=== PATIENT | female | born 1935 | race Caucasian/White ===

== ENCOUNTER 2019-11-22 12:15 | Outpatient (CLI) | payer MEDICARE, SELFPAY ==
[2019-11-22 12:37] LABS: Basophils Absolute Auto 0.04 K/mm3 (0.00-0.10); Basophils Percent Auto 0.6 % (0.0-1.0); Eosinophils Absolute Auto 0.13 K/mm3 (0.02-0.50); Eosinophils Percent Auto 1.9 % (1.0-6.0); Hematocrit 42.4 % (35.0-42.0); Immature Granulocyte Absolute 0.02 K/mm3 (0.00-0.00); Immature Granulocyte Percent A 0.3 % (0.0-0.0); Lymphocytes Absolute Auto 2.42 K/mm3 (1.10-4.50); Mean Corpuscular Hemoglobin 28.7 pg (27.0-31.0); Mean Corpuscular Volume 87.1 fL (78.0-102.0); Mean Platelet Volume 8.6 fl (9.2-11.8); Monocytes Absolute Auto 0.68 K/mm3 (0.10-0.90); Monocytes Percent Auto 9.8 % (2.0-11.0); Neutrophils Absolute Auto 3.6 K/mm3 (1.7-7.2); Neutrophils Percent Auto 52.4 % (50.0-70.0); Platelet Count Result 343 K/mm3 (150-420); Red Blood Count 4.87 M/mm3 (4.20-5.40); Red Cell Distribution Width 13.4 % (11.6-14.4); White Blood Count 6.9 K/mm3 (4.8-10.8)
[2019-11-22 12:38] LABS: Add Urine Microscopic? YES; Appearance Urine Clear (Clear); Bilirubin Urine Negative (Negative); Blood Urine 1+ (Negative); Color Urine Yellow (Yellow); Glucose Urine UA Negative (Negative); Ketones Urine Negative (Negative); Leukocyte Esterase Ur 2+ (Negative); Nitrate Urine Negative (Negative); Protein Urine Negative (Negative); Urobilinogen Urine 0.2 mg/dL (0.2-1.0); pH Urine 6.5 (5.0-8.0)
[2019-11-22 12:56] LABS: Bacteria Urine 1+ /hpf; Renal Epithelial Cells Urine Few /hpf; Squamous Epithelial Cell Urine Few /hpf (Few)
[2019-11-22 14:06] LABS: Erythrocyte Sedimentation Rate 22 mm/hr (0-20)
[2019-11-22 14:08] LABS: Alanine Aminotransferase 12 U/L (14-59); Albumin Level 3.7 g/dL (3.4-5.0); Alkaline Phosphatase 104 U/L (46-116); Anion Gap 15.6 mmol/L (7-16); Aspartate Amino Transferase 15 U/L (15-37); Bilirubin,Total 0.5 mg/dL (0.00-1.00); Blood Urea Nitrogen 11 mg/dL (7-18); Calcium 9.1 mg/dL (8.5-10.1); Carbon Dioxide 25 mmol/L (21-32); Chloride 100 mmol/L (98-108); Cholesterol 198 mg/dL (0-200); Estimated Glomerular Filt Rate > 60; Free T3 3.13 pg/mL (2.18-3.98); Free T4 Free Thyroxine 1.04 ng/dL (0.76-1.46); Glucose 89 mg/dL (70-99); HDL Direct 46 mg/dL (40-60); LDL Cholesterol Calculated 127 mg/dL (<130); Osmolality Calculated 280 mOsm/kg (285-295); Potassium 4.6 mmol/L (3.5-5.1); Sodium 136 mmol/L (136-145); Thyroid Stimulating Hormone 2.14 uIU/mL (0.36-3.74); Total Protein 7.3 g/dL (6.4-8.2); Triglycerides 127 mg/dL (0-150); Vitamin B12 250 pg/mL (193-986)
[2019-11-22 14:09] LABS: CRP < 0.2 mg/dL (0.0-0.9)
[2019-11-25 21:30] LABS: Vitamin D 25 Hydroxy 9 ng/mL (30-100)
== END 2019-11-22 12:16 | disposition home or self-care (01) ==
LOC: CHSLAB 12:22
PROVIDERS: PCP Internal Medicine; Visit Provider Internal Medicine
DX: I48.91 Unspecified atrial fibrillation (principal); M81.0 Age-related osteoporosis without current pathological fracture; E78.2 Mixed hyperlipidemia; M54.5 Low back pain; E53.8 Deficiency of other specified B group vitamins
CPT/HCPCS: 36415; 80053; 80061; 81001; 82306; 82607; 84439; 84443; 84481; 85025; 85652; 86140

== ENCOUNTER 2020-03-24 14:21 | Outpatient (CLI) | payer MEDICARE, OTHER, SELFPAY ==
--- NOTE | ~2020-03-24 | XR_ITS ---
EXAMINATION: XR chest 2V DATE: 03/24/2020 14:58 INDICATION: Cough. TECHNIQUE: Frontal and lateral views of the chest were obtained. COMPARISON: Chest 2 views 12/29/2014, lumbar spine CT 06/20/2019 FINDINGS: There is mild atelectasis at left lung base. No pleural effusion or pneumothorax. Cardiomeg ana is noted. There are epidural electrodes in thoracic spine. There is a chronic compression fractur e of L1. IMPRESSION: 1. Mild atelectasis at left lung base. 2. Cardiomegaly. Reviewed, dictated and finalized at location A.
[2020-03-24 14:38] LABS: Basophils Absolute Auto 0.06 K/mm3 (0.00-0.10); Basophils Percent Auto 0.8 % (0.0-1.0); Eosinophils Absolute Auto 0.67 K/mm3 (0.02-0.50); Eosinophils Percent Auto 9.1 % (1.0-6.0); Hematocrit 41.9 % (35.0-42.0); Hemoglobin 13.9 g/dL (11.7-13.8); Immature Granulocyte Absolute 0.02 K/mm3 (0.00-0.00); Immature Granulocyte Percent A 0.3 % (0.0-0.0); Lymphocytes Absolute Auto 2.64 K/mm3 (1.10-4.50); Mean Corpuscular HGB Conc 33.2 g/dL (32.0-36.0); Mean Corpuscular Hemoglobin 29.3 pg (27.0-31.0); Mean Corpuscular Volume 88.2 fL (78.0-102.0); Mean Platelet Volume 8.6 fl (9.2-11.8); Monocytes Percent Auto 9.5 % (2.0-11.0); Neutrophils Absolute Auto 3.2 K/mm3 (1.7-7.2); Neutrophils Percent Auto 44.3 % (50.0-70.0); Platelet Count Result 331 K/mm3 (150-420); Red Blood Count 4.75 M/mm3 (4.20-5.40); Red Cell Distribution Width 13.7 % (11.6-14.4); White Blood Count 7.3 K/mm3 (4.8-10.8)
[2020-03-24 14:52] LABS: Alanine Aminotransferase 14 U/L (14-59); Albumin Level 3.6 g/dL (3.4-5.0); Alkaline Phosphatase 100 U/L (46-116); Anion Gap 5.7 mmol/L (7-16); Aspartate Amino Transferase 14 U/L (15-37); Bilirubin,Total 0.4 mg/dL (0.00-1.00); Blood Urea Nitrogen 15 mg/dL (7-18); Calcium 9.2 mg/dL (8.5-10.1); Carbon Dioxide 32 mmol/L (21-32); Chloride 95 mmol/L (98-108); Estimated Glomerular Filt Rate > 60; Glucose 94 mg/dL (70-99); Osmolality Calculated 268 mOsm/kg (285-295); Potassium 3.7 mmol/L (3.5-5.1); Sodium 129 mmol/L (136-145); Total Protein 7.6 g/dL (6.4-8.2)
[2020-03-24 14:57] LABS: BNP 266 pg/mL (0-100)
== END 2020-03-24 14:22 | disposition home or self-care (01) ==
LOC: CHSLAB 14:26
PROVIDERS: PCP Internal Medicine; Visit Provider Internal Medicine
DX: I48.91 Unspecified atrial fibrillation (principal); R05 Cough; R06.02 Shortness of breath
CPT/HCPCS: 36415; 71046; 80053; 83880; 85025

== ENCOUNTER 2020-03-26 10:35 | Outpatient (CLI) | payer MEDICARE, OTHER, SELFPAY ==
--- NOTE | 2020-03-26 10:44 | ECHO_ITS ---
Patient Info Name: Jenn Tirado Age: 84 years : 1935 Gender: Female Ht: 65 in Wt: 145 lbs BSA: 1.75 m2 HR: 56 bpm BP: 141 / 66 mmHg Technical Quality: Good Exam Date: 03/26/2020 10:46 AM Exam Location: [facility] Patient Status: Outpatient Admit Date: 03/26/2020 Staff Ordering Physician: Bravo Bowen MD Planisher: Suzy Banks RDCS Attending Provider: Bravo Bowen MD Referring Physician: Andrés ZHU; Exam Type: CA echo doppler color flow Study Info Indications I50.9 - Heart failure, unspecified Complete two-dimensional, color flow and Doppler transthoracic echocardiogram is performed. Strain analysis performed. History/Risk Factors Hypertension: Yes Dyslipidemia: No Congenital Heart Disease (CHD): No Peripheral Arterial Disease (PAD): No Myocardial Infarction (PA): No Chronic Lung Disease: No Obesity: No Renal Disease: No Congestive Heart Failure (CHF): Hx CHF Cardiomyopathy/LV Systolic Dysfunction: No Diabetes Mellitus: No COPD: On Meds Tobacco Use: Never Cerebrovascular Disease: No DVT Treatment: Apixaban Deep Vein Thrombosis (DVT): None Dialysis: None Frailty Scale (CSHA): 3: Managing Well Cardiac Arrest: No Summary 1. Left ventricular chamber dimension is mildly enlarged. 2. Ventricular septum is sigmoid shaped. 3. Left ventricular systolic function is normal, estimated at 55-60%. 4. The left ventricular diastolic function is normal. 5. E/e' 7 is not elevated. 6. Left atrial chamber dimension is moderately enlarged. 7. Right atrial chamber dimension is severely enlarged. 8. There is mild aortic valve sclerosis. 9. There is trace aortic valve regurgitation. 10. The mitral valve has moderately calcified annulus. 11. There is mild mitral valve regurgitation. 12. There is severe tricuspid valve regurgitation. 13. Mild pulmonary hypertension, estimated pulmonary arterial systolic pressure is 40 mmHg. 14. There is 2 jet mild to moderate pulmonic regurgitation. 15. Dilated inferior vena cava with >50% collapse upon inspiration consistent with elevated right atrial pressure, 10 mmHg. Left Ventricle E/e' 7 is not elevated. Ventricular septum is sigmoid shaped. Left ventricular chamber dimension is mildly enlarged. Left ventricular systolic function is normal, estimated at 55-60%. The left ventricular diastolic function is normal. Right Ventricle Right ventricular chamber dimension is normal. Right ventricular systolic function is normal. Left Atria Left atrial chamber dimension is moderately enlarged. Right Atria Right atrial chamber dimension is severely enlarged. Aortic Valve The aortic valve is trileaflet. There is mild aortic valve sclerosis. There is no aortic valve stenosis. There is trace aortic valve regurgitation. Pulmonic Valve There is 2 jet mild to moderate pulmonic regurgitation. Mitral Valve The mitral valve has moderately calcified annulus. There is no mitral valve stenosis. There is mild mitral valve regurgitation. Tricuspid Valve There is severe tricuspid valve regurgitation. Mild pulmonary hypertension, estimated pulmonary arterial systolic pressure is 40 mmHg. Pericardium/Pleural The pericardium appears normal. Inferior Vena Cava Dilated inferior vena cava with >50% collapse upon inspiration consistent with elevated right atrial pressure, 10 mmHg. Aorta The aortic ro
== END 2020-03-26 10:36 | disposition home or self-care (01) ==
PROVIDERS: PCP Internal Medicine; Visit Provider Internal Medicine
DX: I50.9 Heart failure, unspecified (principal)
CPT/HCPCS: 93306

== ENCOUNTER 2020-04-13 11:00 | Outpatient (CLI) | payer MEDICARE, OTHER, SELFPAY | END 2020-04-13 11:01 | disposition home or self-care (01) | LOC: CHSCARD 11:02 | PROVIDERS: PCP Internal Medicine; Visit Provider Internal Medicine Cardiovascular Disease | DX: Z01.810 Encounter for preprocedural cardiovascular examination (principal) | CPT/HCPCS: 78452; 93017; A9502; J2785 ==

== ENCOUNTER 2020-04-30 09:26 | Outpatient (CLI) | payer MEDICARE, SELFPAY ==
[2020-04-30 09:47] LABS: Basophils Absolute Auto 0.02 K/mm3 (0.00-0.10); Basophils Percent Auto 0.4 % (0.0-1.0); Eosinophils Absolute Auto 0.13 K/mm3 (0.02-0.50); Eosinophils Percent Auto 2.3 % (1.0-6.0); Hematocrit 42.7 % (35.0-42.0); Hemoglobin 13.5 g/dL (11.7-13.8); Immature Granulocyte Absolute 0.01 K/mm3 (0.00-0.00); Immature Granulocyte Percent A 0.2 % (0.0-0.0); Lymphocytes Absolute Auto 1.89 K/mm3 (1.10-4.50); Lymphocytes Percent Auto 33.1 % (18.0-42.0); Mean Corpuscular HGB Conc 31.6 g/dL (32.0-36.0); Mean Corpuscular Hemoglobin 28.8 pg (27.0-31.0); Mean Platelet Volume 8.7 fl (9.2-11.8); Monocytes Percent Auto 12.3 % (2.0-11.0); Neutrophils Percent Auto 51.7 % (50.0-70.0); Platelet Count Result 370 K/mm3 (150-420); Red Blood Count 4.69 M/mm3 (4.20-5.40); Red Cell Distribution Width 13.3 % (11.6-14.4); White Blood Count 5.7 K/mm3 (4.8-10.8)
[2020-04-30 11:27] LABS: Vitamin B12 285 pg/mL (193-986)
[2020-05-05 19:25] LABS: Vitamin D 25 Hydroxy 26 ng/mL (30-100)
== END 2020-04-30 09:27 | disposition home or self-care (01) ==
PROVIDERS: PCP Internal Medicine; Visit Provider Internal Medicine
DX: E55.9 Vitamin D deficiency, unspecified (principal); D51.9 Vitamin B12 deficiency anemia, unspecified
CPT/HCPCS: 36415; 82306; 82607; 85025

== ENCOUNTER 2020-06-02 11:15 | Outpatient (CLI) | payer MEDICARE, SELFPAY ==
[2020-06-02 13:07] LABS: Vitamin B12 > 2000 pg/mL (193-986)
[2020-06-06 12:11] LABS: Vitamin D 25 Hydroxy 25 ng/mL (30-100)
== END 2020-06-02 11:16 | disposition home or self-care (01) ==
LOC: CHSLAB 11:17
PROVIDERS: PCP Internal Medicine; Visit Provider Internal Medicine
DX: E55.9 Vitamin D deficiency, unspecified (principal); D51.9 Vitamin B12 deficiency anemia, unspecified
CPT/HCPCS: 36415; 82306; 82607

== ENCOUNTER 2020-06-09 11:36 | Outpatient (CLI) | payer MEDICARE, SELFPAY ==
[2020-06-09 12:56] LABS: Vitamin B12 > 2000 pg/mL (193-986)
== END 2020-06-09 11:37 | disposition home or self-care (01) ==
LOC: CHSLAB 11:38
PROVIDERS: PCP Internal Medicine; Visit Provider Internal Medicine
DX: D51.9 Vitamin B12 deficiency anemia, unspecified (principal)
CPT/HCPCS: 36415; 82607

== ENCOUNTER 2020-07-21 14:02 | Outpatient (RCR) | payer MEDICARE, OTHER, SELFPAY ==
--- NOTE | 2020-07-21 11:56 | PTOPEVAL ---
Thank you for referring Jenn Tirado to [facility].? The patient is scheduled to be seen for therapy? ____x/week for ___ weeks. Please review, sign, date and return this plan of care DANITA. I agree with and certify that the following plan of care is medically necessary. Referring Physician Date Admitting Provider: Attending Provider: PHYSICIAN NOT ON STAFF Referring Provider: *PT Outpatient Evaluation Start: 07/21/20 11:04 Freq: Status: Active Protocol: Document 07/21/20 11:05 GENOVEVA (Rec: 07/21/20 11:55 [facility] [id number]) Therapy Assessment Status Assessment Status Assessment Status Evaluation Evaluation Information Problem Diagnosis lumbar radiculopathy Onset 07/20/20 Additional Evaluation Detail oswestry = 44% functionally declined Subjective Information patient reports she has a Query Text:As Reported By Patient/ spinal cord stimulator in the Family back. she reports she is unable to have an MRI. she reports she has had and tried injections for a long time. she reports she has had an EMG recently. she reports results show an old injury causing the pain down the leg. she reports she has pain in the butt and to the knee of the L side. she reports she has had pain in the back for years. she reports it has been flared up for a year. she reports she has shrap zingers of pain from the buttock to the L knee. she reports increased pain with standing and walking . she uses a cane regularly, but will use a walker for long distance walks. Pain Assessment Timing of Pain Assessment Timing of Pain Assessment Assessment Pain Scale Pain Scale Used Numeric (1 - 10) Self Report Pain Assessment Lower Back Reported Pain Level 0 Pain Radiation Left Leg Pain Frequency Acute,Chronic,Continuous Lowest Pain Intensity 0 Greatest Pain Intensity 8 Pain Score Pain Score 0: Self Report Additional Pain Score Comments patient reports no pain with sitting or sleeping. Interventions Used Interventions Used By Clinicians Activity or ADL's,Education,
== END 2020-08-26 14:06 | disposition home or self-care (01) ==
LOC: CHSPT 14:02
PROVIDERS: PCP Internal Medicine
DX: M54.17 Radiculopathy, lumbosacral region (principal)
CPT/HCPCS: 97110; 97161

== ENCOUNTER 2020-08-07 11:12 | Outpatient (CLI) | payer MEDICARE, SELFPAY ==
[2020-08-11 12:25] LABS: Vitamin D 25 Hydroxy 21 ng/mL (30-100)
== END 2020-08-07 11:13 | disposition home or self-care (01) ==
LOC: CHSLAB 11:13
PROVIDERS: PCP Internal Medicine; Visit Provider Internal Medicine
DX: E55.9 Vitamin D deficiency, unspecified (principal)
CPT/HCPCS: 36415; 82306

== ENCOUNTER 2020-08-31 14:48 | Outpatient (CLI) | payer MEDICARE, SELFPAY ==
[2020-08-31 15:38] LABS: SARS-CoV-2 Ag Negative (Negative)
== END 2020-08-31 14:49 | disposition home or self-care (01) ==
LOC: CHSLAB 14:52
PROVIDERS: PCP Internal Medicine; Visit Provider Internal Medicine
DX: Z20.828 Contact with and (suspected) exposure to other viral communicable diseases (principal)
CPT/HCPCS: 87426

== ENCOUNTER 2020-10-13 10:23 | Outpatient (CLI) | payer MEDICARE, SELFPAY ==
[2020-10-15 12:43] LABS: Vitamin D 25 Hydroxy 37 ng/mL (30-100)
== END 2020-10-13 10:24 | disposition home or self-care (01) ==
LOC: CHSLAB 10:25
PROVIDERS: PCP Internal Medicine; Visit Provider Internal Medicine
DX: E55.9 Vitamin D deficiency, unspecified (principal)
CPT/HCPCS: 36415; 82306

== ENCOUNTER 2020-10-19 12:59 | Outpatient (RCR) | payer MEDICARE, OTHER, SELFPAY ==
--- NOTE | 2020-10-19 14:14 | PTOPEVAL ---
Thank you for referring Jenn Tirado to [facility].? The patient is scheduled to be seen for therapy? __2__x/week for 12 visits. Please review, sign, date and return this plan of care DANITA. I agree with and certify that the following plan of care is medically necessary. Referring Physician Date Admitting Provider: Attending Provider: Loraine Schmitt, P[employer]ER [employer]-BC Referring Provider: *PT Outpatient Evaluation Start: 10/19/20 13:03 Freq: Status: Active Protocol: Document 10/19/20 13:04 ACR (Rec: 10/19/20 14:14 ACR [id number]) Therapy Assessment Status Assessment Status Assessment Status Evaluation Evaluation Information Problem Diagnosis L hip pain Onset 10/15/20 Subjective Information Patient states she has been to Query Text:As Reported By Patient/ therapy for her L hip before. Family Patient states her hip pain has been chronic and was at the MD for a check up and got an injection on 10/15/20. She has been getting the injections every three months. She states the pain does not wake her up, but it is constantly aching throughout the day. Prior Level of Function Activity Level (Last 3 Months) Occupation retired Hand Dominance Right Activity of Daily Living Ability Independent Indoor/Home Mobility Independent Community Mobility Independent Stairs Ability Independent Functional Cognition (Planning, Shopping Independent , Taking Medications) Cooking Yes Cleaning Yes Laundry Yes Shopping Yes Driving Yes Pain Assessment Timing of Pain Assessment Timing of Pain Assessment Assessment Pain Scale Pain Scale Used Numeric (1 - 10) Self Report Pain Assessment Left Hip(s) Reported Pain Level 3 Pain Description Aching Greatest Pain Intensity 6 Pain Aggravating Factors Walking,Weight Bearing/ Standing Pain Score Pain Score 3: Self Report Interventions Used Interventions Used By Clinicians Activity or ADL's,Exercise Lower Extremity Range of Motion Hip Range of Motion Bilateral Hip Flexion Range of Motion - Active 125 Hip Abduction Range of Motion - Active 40 Lower Extremity Muscle Strength Testing Hip Strength Bilateral Hip Flexion Strength 3 Fair Hip Abduction Strength 3 Fair Knee S
--- NOTE | 2020-11-30 12:01 | PTOPEVAL ---
Thank you for referring Jenn Tirado to [facility].? The patient is scheduled to be seen for therapy? ____x/week for ___ weeks. Please review, sign, date and return this plan of care DANITA. I agree with and certify that the following plan of care is medically necessary. Referring Physician Date Admitting Provider: Attending Provider: Loraine Schmitt, MARISSA Referring Provider: *PT Outpatient Evaluation Start: 10/19/20 13:03 Freq: Status: Active Protocol: Document 11/30/20 11:06 ACR (Rec: 11/30/20 12:01 ACR [id number]) Therapy Assessment Status Assessment Status Assessment Status Re-evaluation Outpatient Past Medical History Cardiovascular History Hx Atrial Fibrillation Yes Hx Hypertension Yes HEENT History Hx Cataracts Yes: r Hx Eye Surgery Yes: r eye retinal and lens transfer Reproductive History Hx Post Menopausal Yes Evaluation Information Problem Diagnosis generalized weakness Subjective Information Patient states since her Query Text:As Reported By Patient/ hospital stay a week ago, she Family has been doing better, but feels very weak. She states she is getting her appetite back. She states she is getting stronger day by day, but still has difficulty with walking long distances and her balance. Her goal is to be able to perform a sit to stand with no difficulty. Pain Assessment Timing of Pain Assessment Timing of Pain Assessment Pre-Treatment Pain Scale Pain Scale Used Numeric (1 - 10) Self Report Pain Assessment Left Hip(s) Reported Pain Level 5 Pain Score Pain Score 5: Self Report Interventions Used Interventions Used By Clinicians Activity or ADL's,Education, Electrical Stimulation, Exercise,Heat Lower Extremity Muscle Strength Testing Hip Strength Bilateral Hip Flexion Strength 3+ Fair + Hip Abduction Strength 4+ Good + Hip Adduction Strength 4+ Good + Knee Strength Bilateral Knee Flexion Strength 4 Good Knee Extension Strength 4 Good Balance Assessment Tinetti Balance Assessment Sitting Balance Steady, safe Ability to Arise Able, uses arms to help Attempts to Arise Arises on 1st attempt Immediate Standing Balance Steady with support Standing Balance Steady, wide stance Nudged Response
== END 2021-01-01 13:51 | disposition home or self-care (01) ==
LOC: CHSPT 12:59
PROVIDERS: Visit Provider Nurse Practitioner Family
DX: M25.552 Pain in left hip (principal); M54.5 Low back pain; M54.16 Radiculopathy, lumbar region
CPT/HCPCS: 97014; 97110; 97112; 97116; 97161; 97530; G0283

== ENCOUNTER 2020-11-18 10:09 | Observation (INO) | payer MEDICARE, OTHER, SELFPAY ==
[2020-11-18] VITALS (11 sets, daily range): BP systolic 76–111; BP diastolic 58–74; PULSE 54–77; RESP 16–18; TEMP 36.8–37.3; O2SAT 94–99; BMI 23.1
--- NOTE | ~2020-11-18 | CT_ITS ---
EXAMINATION: CT abdomen pelvis w con EXAM DATE: 11/19/2020 12:54 INDICATION: Acute n/v/d and incontinence diarrhea and incontinence x2wks, recent weakness,syncope,radha sea. TECHNIQUE: Spiral CT of the abdomen and pelvis was performed following intravenous injection of 100 m L Omnipaque 350. Axial, coronal and sagittal images were reviewed. The dose-length product (DLP) fo r this examination was 396.22 mGy-cm. The exposure was tailored according to patient size (auto mA e xposure control), and iterative reconstruction (ASIR) was used as additional dose reduction technique . There is no prior study for comparison. FINDINGS: The liver, spleen, adrenal glands and pancreas are unremarkable. Gallbladder is unremarkab le. No biliary obstruction. Portal and splenic veins are patent. Kidneys enhance symmetrically. T here is no hydronephrosis. The uterus is not identified and has likely been surgically resected. T here is enhancing bladder mucosa, possible acute cystitis. Please correlate with urinalysis. There i s no retroperitoneal or pelvic lymphadenopathy. There is moderate scattered arteriosclerotic diseas e. 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 The appendix is not positively visualized. There is no pericecal inflammatory change to suggest appe ndicitis. There is moderate sigmoid colonic diverticulosis. There is no adjacent inflammatory change to suggest diverticulitis. The stomach and small bowel are unremarkable. There is expected amount o f colonic stool. No free intraperitoneal gas. There is moderate cardiomegaly, with significant di lation of the atria bilaterally. Left basilar subsegmental atelectasis. Moderate lumbar levoscolios is. Advanced lumbar spondylosis. Chronic mild to moderate compression fracture of L1. IMPRESSION: 1. Enhancing bladder mucosa suspicious for cystitis, correlate with urinalysis. 2. Moderate sigmoid diverticulosis. 3. Cardiomegaly. Reviewed, dictated and finalized at location B. [employer] IMPRESSION: 1. Enhancing bladder mucosa suspicious for cystitis, correlate with urinalysis . 2. Moderate sigmoid diverticulosis. 3. Cardiomegaly.
--- NOTE | 2020-11-18 10:50 | ECG_ITS ---
Measurements Intervals [place] Rate: 63 P: NC: 0 QRS: 0 QRSD: 84 T: -6 QT: 413 QTc: 424 Interpretive Statements ATRIAL FIBRILLATION CANNOT RULE OUT SEPTAL INFARCT, AGE INDETERMINATE BORDERLINE ST-T WAVE ABNORMALITY- DIFFUSE LEADS ABNORMAL ECG Electronically Signed On 11-18-2020 11:38:56 CAN CRIMPER by Prem Garcia D.O.
--- NOTE | 2020-11-18 10:56 | ED.GENADULT ---
HPI - General Adult General Chief complaint: Weakness Stated complaint: passed out/Weak Source: patient Mode of arrival: ambulatory Limitations: no limitations History of Present Illness HPI narrative: Jenn is a 85F with a PMH of Afib, HTN, and glaucoma that was brought to the emergency department by her daughter with weakness. She has been weak for some time (may have started after starting acetazolamide for glaucoma), but is was especially worse. She has had 5-6 episodes of watery diarrhea daily for a few weeks. This morning she was walking to the bathroom and became lightheaded. She had to sit down but did not fall or lose consciousness. Her daughter then brought her to the ED. No melena, hematochezia, N/V, abdominal pain, CP, SOB or syncope. Related Data Home Medications Medication Instructions Recorded Confirmed apixaban 5 mg tablet 5 mg PO BID 01/22/20 11/18/20 potassium chloride 10 mEq 10 meq PO DAILY 04/06/20 11/18/20 capsule,extended release acetazolamide 500 mg PO DAILY 11/18/20 11/18/20 brimonidine-timolol [Combigan] 1 drp RIGHT EYE DAILY 11/18/20 11/18/20 fluorometholone 1 drp RIGHT EYE DAILY 11/18/20 11/18/20 latanoprost 1 drp RIGHT EYE DAILY 11/18/20 11/18/20 Allergies Allergy/AdvReac Type Severity Reaction Status Date / Time nickel Allergy Unknown Verified 11/18/20 10:44 tape Allergy Intermediate Unknown Uncoded 10/05/20 14:31 Review of Systems Constitutional: Constitutional: Reports no additional constitutional complaints, Denies chills and Denies fever(s) Eyes: Eyes: Reports no additional eye complaints ENT: Reports system reviewed and no additional complaints, except as documented Cardiovascular: Cardiovascular: Reports no additional cardiovascular complaints Respiratory: Respiratory: Reports no additional respiratory complaints Gastrointestinal: Gastrointestinal: Reports as per HPI Genitourinary: Genitourinary: Reports no additional female genitourinary complaints Musculoskeletal: Musculoskeletal: Reports no additional musculoskeletal complaints Integumentary/Breasts: Skin/Breast: Reports system reviewed and no additional complaints, except as docu Neurologic: Reports system reviewed and no additional complaints, except as documented Psychiatric: Psychiatric: Reports no additional psychiatric complaints Endocrine: Endocrine: Reports no additional endocrine complaints Hematologic/Lymphatic: Hematologic/Lymphatic: Reports no additional hematologic/lymphatic complaints Allergic/Immunologic: Allergic/Immunologic: Reports no additional allergic/immunologic complaints [facility] Past Medical History Medical History (Updated 11/18/20 @ 14:40 by Artis Harrison DO) Arthritis Atrial fibrillation Surgical History Surgical History H/O: hysterectomy Transplanted cornea Social History Social History Smoking status: Never smoker Exam Const: General: no acute distress and alert; No confusion Orientation/consciousness: patient oriented x3 Limitations: No altered mental status Other: looks fatigued. HENMT: Other: normocephalic, atraumatic, EOMI, Dry mucous membranes Eyes: Conjunctivae: conjunctivae normal Pupils: Equal, round and reactive pupils present EOM: EOMs intact bilaterally Neck: Neck: normal visual inspection Chest: Chest palpation & inspection: normal inspection of the chest Resp: Effort & Inspection: normal respiratory effort Auscultation: clear to auscultation bilaterally Cardio: Rate: regular rate Other: irregularly irregular rhythm GI: Inspection: non-distended GI Palp: Yes Soft to palpation, No Tenderness to palpation present (GI), No Guarding due to palpation present (GI), No Rigid due to palpation and No Palpable mass present Back/Spine/Pelvis: Back: no CVA tenderness Skin: General skin exam: normal color Rashes: no rashes Neuro: General
[2020-11-18] MEDS: LACTATED RINGERS 1,000 ML 999 ML IV CONT (11:18)
[2020-11-18 11:20] LABS: Basophils Absolute Auto 0.02 K/mm3 (0.00-0.10); Basophils Percent Auto 0.2 % (0.0-1.0); Eosinophils Absolute Auto 0.01 K/mm3 (0.02-0.50); Eosinophils Percent Auto 0.1 % (1.0-6.0); Hematocrit 39.2 % (35.0-42.0); Hemoglobin 12.6 g/dL (11.7-13.8); Immature Granulocyte Absolute 0.06 K/mm3 (0.00-0.00); Immature Granulocyte Percent A 0.5 % (0.0-0.0); Lymphocytes Absolute Auto 1.09 K/mm3 (1.10-4.50); Lymphocytes Percent Auto 9.2 % (18.0-42.0); Mean Corpuscular HGB Conc 32.1 g/dL (32.0-36.0); Mean Corpuscular Hemoglobin 29.6 pg (27.0-31.0); Mean Corpuscular Volume 92.2 fL (78.0-102.0); Mean Platelet Volume 8.4 fl (9.2-11.8); Monocytes Absolute Auto 1.08 K/mm3 (0.10-0.90); Monocytes Percent Auto 9.1 % (2.0-11.0); Neutrophils Absolute Auto 9.6 K/mm3 (1.7-7.2); Neutrophils Percent Auto 80.9 % (50.0-70.0); Platelet Count Result 298 K/mm3 (150-420); Red Blood Count 4.25 M/mm3 (4.20-5.40); Red Cell Distribution Width 14.9 % (11.6-14.4); White Blood Count 11.9 K/mm3 (4.8-10.8)
[2020-11-18 11:29] LABS: Add Urine Microscopic? YES; Appearance Urine Clear (Clear); Bilirubin Urine Negative (Negative); Blood Urine 2+ (Negative); Color Urine Yellow (Yellow); Glucose Urine UA Negative (Negative); Ketones Urine Negative (Negative); Leukocyte Esterase Ur 3+ (Negative); Nitrate Urine Negative (Negative); Protein Urine 1+ (Negative); Specific Grav Ur 1.015 (1.010-1.020)
[2020-11-18 11:30] LABS: INR 1.3; Prothrombin Time 13.9 Seconds (9.50-12.10)
[2020-11-18 11:32] LABS: BNP 452 pg/mL (0-100)
[2020-11-18 11:36] LABS: Bacteria Urine 4+ /hpf; Squamous Epithelial Cell Urine Few /hpf (Few); WBC Urine >75 /hpf (0-3)
[2020-11-18 11:38] LABS: Alanine Aminotransferase 13 U/L (14-59); Albumin Level 3.3 g/dL (3.4-5.0); Alkaline Phosphatase 93 U/L (46-116); Anion Gap 12 mmol/L (8-16); Aspartate Amino Transferase 11 U/L (15-37); Bilirubin,Total 0.8 mg/dL (0.00-1.00); Blood Urea Nitrogen 17 mg/dL (7-18); Carbon Dioxide 21 mmol/L (21-32); Chloride 104 mmol/L (98-108); Creatine Kinase 18 U/L (26-192); Estimated CRCL calculation 31 ml/min; Estimated Glomerular Filt Rate 45; Glucose 116 mg/dL (70-99); Magnesium 1.9 mg/dL (1.8-2.4); Osmolality Calculated 286 mOsm/kg (285-295); Phosphorus 3.3 mg/dL (2.6-4.7); Potassium 3.1 mmol/L (3.5-5.1); Sodium 137 mmol/L (136-145); Total Protein 7.2 g/dL (6.4-8.2); Troponin I 4.1 ng/L (0.00-60.4)
[2020-11-18] MEDS: POTASSIUM CHLORIDE 20 MEQ TABLET 40 MEQ PO (12:01)
--- NOTE | 2020-11-18 13:21 | PC.NURSE ---
PT CALLED 2ND FLOORSUNDAY TO REQUEST OBS ROOM. ROOM 205 PROVIDED. ROOM NOT READY, RN REQUESTED A CALL WHEN ACCEPTING RN IS ABLE TO TAKE REPORT. REGISTRATION NOTIFIED.
[2020-11-18] MEDS: SODIUM CHLORIDE 0.9% IV 1,000 ML 150 ML IV CONT (21:00)
[2020-11-18] MEDS: LATANOPROST 0.005% OP SOLN 2.5 ML BTL 1 DROP RIGHT EYE (21:01)
[2020-11-18] MEDS: APIXABAN 2.5 MG TABLET 5 MG PO (21:01)
[2020-11-19] VITALS: BP 102/63; PULSE 74; RESP 16; TEMP 37.2; O2SAT 96
[2020-11-19] MEDS: SODIUM CHLORIDE 0.9% IV 1,000 ML 150 ML IV CONT (03:24)
[2020-11-19 08:00] VITALS: BP 121/84; PULSE 66; RESP 18; TEMP 36.6; O2SAT 98
[2020-11-19 08:03] LABS: Hematocrit 36.3 % (35.0-42.0); Hemoglobin 11.4 g/dL (11.7-13.8); Mean Corpuscular HGB Conc 31.4 g/dL (32.0-36.0); Mean Corpuscular Hemoglobin 29.4 pg (27.0-31.0); Mean Corpuscular Volume 93.6 fL (78.0-102.0); Mean Platelet Volume 8.7 fl (9.2-11.8); Platelet Count Result 293 K/mm3 (150-420); Red Blood Count 3.88 M/mm3 (4.20-5.40); Red Cell Distribution Width 14.9 % (11.6-14.4); White Blood Count 8.4 K/mm3 (4.8-10.8)
[2020-11-19 08:19] LABS: Alanine Aminotransferase 13 U/L (14-59); Albumin Level 2.7 g/dL (3.4-5.0); Alkaline Phosphatase 78 U/L (46-116); Anion Gap 12 mmol/L (8-16); Aspartate Amino Transferase 10 U/L (15-37); Bilirubin,Total 0.6 mg/dL (0.00-1.00); Blood Urea Nitrogen 13 mg/dL (7-18); Calcium 8.2 mg/dL (8.5-10.1); Carbon Dioxide 20 mmol/L (21-32); Chloride 105 mmol/L (98-108); Estimated CRCL calculation 41 ml/min; Estimated Glomerular Filt Rate > 60; Glucose 96 mg/dL (70-99); Osmolality Calculated 284 mOsm/kg (285-295); Potassium 3.3 mmol/L (3.5-5.1); Sodium 137 mmol/L (136-145); Total Protein 6.3 g/dL (6.4-8.2)
[2020-11-19] MEDS: APIXABAN 2.5 MG TABLET 5 MG PO (08:21)
[2020-11-19] MEDS: VITAMIN B COMPLEX CAPSULE 1 CAP PO (08:21)
[2020-11-19 09:39] LABS: BNP 640 pg/mL (0-100)
[2020-11-19] MEDS: POTASSIUM CHLORIDE 20 MEQ TABLET 40 MEQ PO (10:08)
--- NOTE | 2020-11-19 11:46 | PM.SD2 ---
Same Day Admit/Disch: HPI History of Present Illness Chief complaint: ACUTE DEHYDRATION Narrative: Jenn Tirado is a 85 year old female that presented to the ED due to weakness after having N/V/D. Patient has a past medical history of A. fib hypertension and glaucoma. According to patient she has had diarrhea for approximately 2-week. Patient notes that she has been weak for approximately 1 week and became lightheaded while walking to the restroom at home. Family is believed that patient new medication , acetazolamide could have possibly caused her to have nausea vomiting diarrhea on admission patient's WBCs 11.9, potassium 3.1, BUN 17, creatinine 1.14, CRP 5.0, BNP 452, patient's UA with leukocytes and bacteria, C. difficile negative. EKG A. fib heart rate of 63. Patient was given Rocephin as inpatient for her urinary tract infection she was discharged with Bactrim. Patient notes that her diarrhea is starting to subside. Patient was admitted for urinary tract infection and generalized weakness. patient denies SOB, CP, palpitation, extremity numbness, lightheadedness, dizziness, constipation, diarrhea, chills, or fever. Patient notes that her condition has improved since admission. Patient has been evaluated by physical therapy/Occupational Therapy. According to assessment patient is safe to go home she will follow up with outpatient PT. [facility] Past Medical History Medical History (Updated 11/19/20 @ 12:17 by JOE Osborne) Arthritis Atrial fibrillation Surgical History Surgical History H/O: hysterectomy Transplanted cornea Social History Social History Smoking status: Never smoker Same Day Admit/Disch: Med Pre-admit Medications Home Medications Medication Instructions Recorded Confirmed Type apixaban 5 mg tablet 5 mg PO BID 01/22/20 11/18/20 History potassium chloride 10 mEq 10 meq PO DAILY 04/06/20 11/18/20 History capsule,extended release diltiazem HCl 180 mg 180 mg PO DAILY #30 cap 10/05/20 11/18/20 Rx capsule,extended release 24 hr acetazolamide 500 mg PO DAILY 11/18/20 11/18/20 History brimonidine-timolol [Combigan] 1 drp RIGHT EYE DAILY 11/18/20 11/18/20 History fluorometholone 1 drp RIGHT EYE DAILY 11/18/20 11/18/20 History latanoprost 1 drp RIGHT EYE DAILY 11/18/20 11/18/20 History Exam Narrative: Exam Narrative: GENERAL: Frail elderly female no obvious distress noted HEAD: normocephalic, atraumatic. EYES: PERRL. Sclera clear/white. Vision is grossly intact. EARS: External ears normal, auditory canals clear and without drainage, TMs normal without perforation. Hearing grossly intact. NOSE: External nose normal with no obvious nasal discharge, nares without redness, no rhinorrhea. THROAT: Mucous membranes moist, posterior pharynx clear. NECK: Neck supple, non-tender without lymphadenopathy, masses or thyromegaly. CARDIOVASCULAR: Regular rate and irregular rhythm without murmurs, gallops, or rubs. RESPIRATORY: Clear to auscultation. Breath sounds equal bilaterally. No wheezes, rales, or rhonchi. GASTROINTESTINAL: Abdomen soft, non-tender, nondistended. Bowel sounds are active. No hepato-splenomegaly, or palpable masses. No guarding. SKIN: warm, intact with no suspicious lesions or rash, good texture and turgor. NEURO: awake, alert, and oriented to person, place and time. There were no obvious focal neurologic abnormalities. Steady gait EXTREMITIES: Normal range of motion. No edema. No calf tenderness. Negative Homans sign bilaterally. BACK: Nontender without deformity or crepitance. No flank tenderness. DS: Data Data Completed and Pending Labs on day of discharge: Labs from last 24 hours 11/19/20 11/19/20 11/19/20 09:15 07:46 07:46 WBC 8.4 RBC 3.88 L Hgb 11.4 L Hct 36.3 MCV 93.6 MCH 29.4 MCHC 31.4 L RDW 14.9 H Plt Count 293 MPV 8
--- NOTE | 2020-11-19 14:28 | PC.NURSE ---
1300 down back from xray. has been npo since breakfast. vocies no c/o. eating lunch. maximiliano quezada [id number] discharge instructions went over. both daughter and patient vocalize an understanding. discharged to family auto to home. encouraged to keep eye on iv site for s/s infection. maximiliano quezada
--- NOTE | 2020-11-24 14:14 | PC.NURSE ---
Pt states she received and understood her discharge instructions. Has no other comments.
== END 2020-11-19 13:45 | disposition home or self-care (01) ==
LOC: CHSED 10:13 → CHS2ND 13:23
PROVIDERS: Nurse Practitioner; Admitting Provider Family Medicine; Emergency Provider Family Medicine; PCP Internal Medicine; Visit Provider Family Medicine
DX: N39.0 Urinary tract infection, site not specified (principal); E86.0 Dehydration; E87.6 Hypokalemia; I48.20 Chronic atrial fibrillation, unspecified; I10 Essential (primary) hypertension; H40.9 Unspecified glaucoma; M19.90 Unspecified osteoarthritis, unspecified site; Z90.710 Acquired absence of both cervix and uterus; Z94.7 Corneal transplant status
CPT/HCPCS: 36415; 74177; 80053; 81001; 82550; 83735; 83880; 84100; 84484; 85025; 85027; 85610; 86140; 87077; 87086; 87088; 87186; 87324; 93005; 96361; 96365; 97161; 97165; 97535; 99285; A9270; G0378; J0696; J7030; J7120; Q9967

== ENCOUNTER 2021-07-12 09:41 | Outpatient (CLI) | payer MEDICARE, OTHER, SELFPAY ==
[2021-07-12 11:59] LABS: Influenza A QL RT-PCR Negative (Negative); Influenza B QL RT-PCR Negative (Negative); SARS-CoV-2 RNA PCR Negative (Negative)
== END 2021-07-12 09:42 | disposition home or self-care (01) ==
PROVIDERS: PCP Internal Medicine; Visit Provider Internal Medicine
DX: J06.9 Acute upper respiratory infection, unspecified (principal); Z20.822 Contact with and (suspected) exposure to COVID-19
CPT/HCPCS: 87502; C9803; U0003; U0005

== ENCOUNTER 2021-07-28 10:20 | Outpatient (CLI) | payer MEDICARE, OTHER, SELFPAY ==
[2021-07-28 11:28] LABS: SARS-CoV-2 RNA PCR Negative (Negative)
== END 2021-07-28 10:21 | disposition home or self-care (01) ==
LOC: CHSLAB 10:25
PROVIDERS: PCP Internal Medicine; Visit Provider Internal Medicine
DX: Z20.822 Contact with and (suspected) exposure to COVID-19 (principal)
CPT/HCPCS: C9803; U0003; U0005

== ENCOUNTER 2021-08-02 15:13 | Outpatient (CLI) | payer MEDICARE, OTHER, SELFPAY ==
--- NOTE | ~2021-08-02 | XR_ITS ---
XR chest 2V 08/02/2021 15:50 Indication: Cough and shortness of breath for 6 months Procedure: 2 view chest Comparison: 03/24/2020 Findings: Cardiomegaly. There are spinal leads overlying the upper thoracic spine. Generalized osteop enia. There is atherosclerosis and ectasia of the aorta. No focal air space disease, pulmonary edema, pleural effusion or suspected pneumothorax. There is mild lower thoracic wedge compression deformity , likely chronic. Impression: 1: No acute cardiopulmonary disease. Reviewed, dictated and finalized at location A. [employer] Impression: 1: No acute cardiopulmonary disease.
[2021-08-02 15:33] LABS: Basophils Absolute Auto 0.01 K/mm3 (0.00-0.10); Basophils Percent Auto 0.1 % (0.0-1.0); Eosinophils Absolute Auto 0.01 K/mm3 (0.02-0.50); Eosinophils Percent Auto 0.1 % (1.0-6.0); Hemoglobin 13.8 g/dL (11.7-13.8); Immature Granulocyte Absolute 0.03 K/mm3 (0.00-0.00); Immature Granulocyte Percent A 0.3 % (0.0-0.0); Lymphocytes Percent Auto 13.3 % (18.0-42.0); Mean Corpuscular HGB Conc 32.9 g/dL (32.0-36.0); Mean Corpuscular Hemoglobin 28.9 pg (27.0-31.0); Mean Corpuscular Volume 87.9 fL (78.0-102.0); Mean Platelet Volume 8.6 fl (9.2-11.8); Monocytes Absolute Auto 0.81 K/mm3 (0.10-0.90); Neutrophils Percent Auto 77.2 % (50.0-70.0); Platelet Count Result 336 K/mm3 (150-420); Red Blood Count 4.78 M/mm3 (4.20-5.40)
[2021-08-02 15:55] LABS: Anion Gap 9 mmol/L (8-16); Blood Urea Nitrogen 15 mg/dL (7-18); Calcium 9.5 mg/dL (8.5-10.1); Carbon Dioxide 29 mmol/L (21-32); Chloride 96 mmol/L (98-108); Estimated Glomerular Filt Rate > 60; Glucose 118 mg/dL (70-99); NT Pro B Type Natriuretic Pept 1218 pg/mL (0-450); Osmolality Calculated 279 mOsm/kg (285-295); Potassium 4.3 mmol/L (3.5-5.1); Sodium 134 mmol/L (136-145)
== END 2021-08-02 15:14 | disposition home or self-care (01) ==
LOC: CHSLAB 15:17
PROVIDERS: PCP Internal Medicine; Visit Provider Internal Medicine
DX: R05.9 Cough, unspecified (principal); R06.02 Shortness of breath
CPT/HCPCS: 36415; 71046; 80048; 83880; 85025

== ENCOUNTER 2021-08-04 12:19 | Outpatient (CLI) | payer MEDICARE, OTHER, SELFPAY ==
--- NOTE | 2021-08-04 12:30 | ECHO_ITS ---
Patient Info Name: Jenn Tirado Age: 86 years : 1935 Gender: Female Ht: 66 in Wt: 148 lbs BSA: 1.78 m2 HR: 75 bpm BP: 117 / 71 mmHg Exam Date: 08/04/2021 1:18 PM Exam Location: [facility] Patient Status: Outpatient Admit Date: 08/04/2021 Staff Ordering Physician: Bravo Bowen MD Rn International: Eunice Dudley Attending Provider: Bravo Bowen MD Referring Physician: Andrés ZHU; Exam Type: CA echo doppler color flow Study Info Indications I50.9 - Heart failure, unspecified Complete two-dimensional, color flow and Doppler transthoracic echocardiogram is performed. History/Risk Factors Hypertension: Yes Dyslipidemia: No Congenital Heart Disease (CHD): No Peripheral Arterial Disease (PAD): No Myocardial Infarction ([place]): No Chronic Lung Disease: No Obesity: No Renal Disease: No Congestive Heart Failure (CHF): Hx CHF Cardiomyopathy/LV Systolic Dysfunction: No Diabetes Mellitus: No COPD: On Meds Tobacco Use: Never Cerebrovascular Disease: No DVT Treatment: Apixaban Deep Vein Thrombosis (DVT): None Dialysis: None Frailty Scale (CSHA): 3: Managing Well Cardiac Arrest: No Summary 1. Complete two-dimensional, color flow and Doppler transthoracic echocardiogram is performed. 2. Left ventricular chamber dimension is normal. 3. Left ventricular systolic function is normal, estimated at 55-60%. 4. There is mildly increased left ventricular wall thickness. 5. Ventricular septum is sigmoid shaped. No LVOT obstruction. 6. Possible shunt seen at level of aortic valve in parasternal long axis view, consider perimembranous ventricular septal defect which is not well seen. Consider cardiac CTA or cardiac MRI or [facility] for further evaluation if clinically indicated. 7. The left ventricular diastolic function is grade I diastolic dysfunction. 8. E/e' 10 is mildly elevated. 9. Left atrial chamber dimension is mildly enlarged. 10. Right atrial chamber dimension is mildly enlarged. 11. There is mild aortic valve sclerosis. 12. There is trace aortic valve regurgitation. 13. The mitral valve has moderately calcified annulus. 14. There is mild mitral valve regurgitation. 15. There is moderate tricuspid valve regurgitation. 16. Mild pulmonary hypertension, estimated pulmonary arterial systolic pressure is 41 mmHg. 17. There is trace pulmonic regurgitation. Left Ventricle E/e' 10 is mildly elevated. Ventricular septum is sigmoid shaped. No LVOT obstruction. Possible shunt seen at level of aortic valve in parasternal long axis view, consider perimembranous ventricular septal defect which is not well seen. Consider cardiac CTA or cardiac MRI or [facility] for further evaluation if clinically indicated. Left ventricular chamber dimension is normal. Left ventricular systolic function is normal, estimated at 55-60%. There is mildly increased left ventricular wall thickness. The left ventricular diastolic function is grade I diastolic dysfunction. Right Ventricle Right ventricular systolic function is normal and with normal TAPSE 2.0 cm. Right ventricular chamber dimension is normal. Left Atria Left atrial chamber dimension is mildly enlarged. Right Atria Right atrial chamber dimension is mildly enlarged. Aortic Valve The aortic valve is trileaflet. There is mild aortic valve sclerosis. There is no aortic valve stenosis. There is trace aortic valve regurgitation. Pulmonic Valve There is trace pu
== END 2021-08-04 12:20 | disposition home or self-care (01) ==
PROVIDERS: PCP Internal Medicine; Visit Provider Internal Medicine
DX: I50.9 Heart failure, unspecified (principal)
CPT/HCPCS: 93306

== ENCOUNTER 2021-08-23 11:13 | Outpatient (CLI) | payer MEDICARE, SELFPAY ==
[2021-08-23 11:27] LABS: Add Urine Microscopic? YES; Appearance Urine Clear (Clear); Basophils Absolute Auto 0.03 K/mm3 (0.00-0.10); Basophils Percent Auto 0.5 % (0.0-1.0); Bilirubin Urine Negative (Negative); Blood Urine 1+ (Negative); Color Urine Light Yellow (Yellow); Eosinophils Absolute Auto 0.09 K/mm3 (0.02-0.50); Eosinophils Percent Auto 1.4 % (1.0-6.0); Glucose Urine UA Negative (Negative); Hematocrit 44.5 % (35.0-42.0); Hemoglobin 14.1 g/dL (11.7-13.8); Immature Granulocyte Absolute 0.02 K/mm3 (0.00-0.00); Immature Granulocyte Percent A 0.3 % (0.0-0.0); Ketones Urine Negative (Negative); Leukocyte Esterase Ur 2+ LEU/UL (Negative); Lymphocytes Absolute Auto 1.71 K/mm3 (1.10-4.50); Lymphocytes Percent Auto 26.3 % (18.0-42.0); Mean Corpuscular HGB Conc 31.7 g/dL (32.0-36.0); Mean Corpuscular Hemoglobin 28.5 pg (27.0-31.0); Mean Corpuscular Volume 89.9 fL (78.0-102.0); Mean Platelet Volume 8.3 fl (9.2-11.8); Monocytes Absolute Auto 0.64 K/mm3 (0.10-0.90); Monocytes Percent Auto 9.8 % (2.0-11.0); Neutrophils Percent Auto 61.7 % (50.0-70.0); Nitrate Urine Negative (Negative); Platelet Count Result 483 K/mm3 (150-420); Protein Urine Negative (Negative); Red Blood Count 4.95 M/mm3 (4.20-5.40); Red Cell Distribution Width 14.6 % (11.6-14.4); Urobilinogen Urine 0.2 mg/dL (0.2-1.0); White Blood Count 6.5 K/mm3 (4.8-10.8)
[2021-08-23 11:34] LABS: Bacteria Urine 1+ /hpf; Squamous Epithelial Cell Urine Few /hpf (Few)
[2021-08-23 11:35] LABS: Mucus Urine Few /lpf
[2021-08-23 12:25] LABS: Alanine Aminotransferase 14 U/L (14-59); Albumin Level 3.3 g/dL (3.4-5.0); Alkaline Phosphatase 116 U/L (46-116); Amylase 55 U/L (25-115); Anion Gap 10 mmol/L (8-16); Aspartate Amino Transferase 11 U/L (15-37); Bilirubin,Total 0.4 mg/dL (0.00-1.00); Blood Urea Nitrogen 12 mg/dL (7-18); Calcium 9.4 mg/dL (8.5-10.1); Carbon Dioxide 27 mmol/L (21-32); Chloride 99 mmol/L (98-108); Estimated Glomerular Filt Rate 60; Free T4 Free Thyroxine 1.02 ng/dL (0.76-1.46); Glucose 95 mg/dL (70-99); Lipase 121 U/L (73-393); NT Pro B Type Natriuretic Pept 892 pg/mL (0-450); Osmolality Calculated 281 mOsm/kg (285-295); Potassium 4.6 mmol/L (3.5-5.1); Sodium 136 mmol/L (136-145); Thyroid Stimulating Hormone 2.26 uIU/mL (0.36-3.74); Total Protein 7.8 g/dL (6.4-8.2)
[2021-08-23 12:36] LABS: Erythrocyte Sedimentation Rate 25 mm/hr (0-20)
[2021-08-23 12:40] LABS: CRP < 0.5 mg/dL (0.0-0.9)
== END 2021-08-23 11:14 | disposition home or self-care (01) ==
LOC: CHSLAB 11:16
PROVIDERS: PCP Internal Medicine; Visit Provider Internal Medicine
DX: R11.0 Nausea (principal); R53.83 Other fatigue; I11.0 Hypertensive heart disease with heart failure; E87.1 Hypo-osmolality and hyponatremia; I50.9 Heart failure, unspecified
CPT/HCPCS: 36415; 80053; 81001; 82150; 83690; 83880; 84439; 84443; 85025; 85652; 86140; 87086

== ENCOUNTER 2022-08-22 13:50 | Emergency (ER) | payer MEDICARE, OTHER, SELFPAY ==
[2022-08-22 13:55] VITALS: BP 127/83; PULSE 88; RESP 14; TEMP 36.7; O2SAT 96
--- NOTE | 2022-08-22 14:16 | ED.NAVMDI ---
HPI - Nausea/Vomiting/Diarrhea General Chief complaint: Nausea/Vomiting/Diarrhea Stated complaint: UTI Time Seen by Provider: 08/22/22 14:16 Source: patient Mode of arrival: ambulatory History of Present Illness HPI Narrative: 87-year-old female with hypertension, atrial fibrillation on Xarelto, urinary tract infection presents to the ER with a 1 day history of -- nausea without any vomiting or diarrhea -- dizziness. Dizziness orthostatic when she sits up from a lying position. No focal neuro deficits. The patient has decreased oral intake. -- increased frequency of micturition. No dysuria or hematuria. MD elicited complaint: nausea Onset (ago): day(s) ( started 1 day ago) Associated nausea: Yes Associated abdominal pain: No Exacerbating factors: none Relieving factors: none Associated symptoms: other ( increased frequency of micturition) Related Data Home Medications Medication Instructions Recorded Confirmed brimonidine 0.2 %-timolol 0.5 % 1 drp RIGHT EYE DAILY 11/18/20 08/22/22 eye drops (Combigan) latanoprost 0.005 % eye drops 1 drp RIGHT EYE DAILY 11/18/20 08/22/22 Allergies Allergy/AdvReac Type Severity Reaction Status Date / Time nickel Allergy Unknown Verified 08/22/22 14:14 tape Allergy Intermediate Unknown Uncoded 03/17/22 14:52 Review of Systems Review of Systems: All systems reviewed & are unremarkable except as noted in HPI and below Constitutional: Constitutional: Reports as per HPI and Reports no additional constitutional complaints Eyes: Eyes: Reports as per HPI and Reports no additional eye complaints Comments: the patient had cataract surgery in February of this year which got complicated following which she had follow-up surgery. she uses eyedrops and has ptosis of her right eyelid ENT: Reports system reviewed and no additional complaints, except as documented and Reports as per HPI Cardiovascular: Cardiovascular: Reports as per HPI and Reports no additional cardiovascular complaints Respiratory: Respiratory: Reports as per HPI and Reports no additional respiratory complaints Gastrointestinal: Gastrointestinal: Reports as per HPI and Reports no additional gastrointestinal complaints Genitourinary: Genitourinary: Reports no additional female genitourinary complaints, Reports as per HPI and Reports nocturia Musculoskeletal: Musculoskeletal: Reports no additional musculoskeletal complaints and Reports as per HPI Integumentary/Breasts: Skin/Breast: Reports system reviewed and no additional complaints, except as docu and Reports as per HPI Neurologic: Reports system reviewed and no additional complaints, except as documented, Reports as per HPI and Reports dizziness ( orthostatic dizziness) Psychiatric: Psychiatric: Reports no additional psychiatric complaints and Reports as per HPI Endocrine: Endocrine: Reports no additional endocrine complaints and Reports as per HPI Hematologic/Lymphatic: Hematologic/Lymphatic: Reports no additional hematologic/lymphatic complaints and Reports as per HPI Allergic/Immunologic: Allergic/Immunologic: Reports no additional allergic/immunologic complaints and Reports as per HPI [facility] Past Medical History Medical History (Updated 08/22/22 @ 16:06 by Prashant Shirley MD) Arthritis Atrial fibrillation Surgical History Surgical History H/O: hysterectomy Transplanted cornea Social History Social History Smoking status: Never smoker Exam Const: General: cooperative and healthy appearing HENMT: Head: normal to inspection and normocephalic Ears: hearing grossly normal bilaterally Face/Nose/Sinus: Normal external nose present and Normal nares present Face and sinus: normal facial exam ( ptosis of right upper eyelid) Mouth: Yes Normal oral and palatal mucosa present Throat: posterior oropharynx normal Eyes: General: appearance n
[2022-08-22 14:30] VITALS: BP 116/82; PULSE 66
[2022-08-22 14:35] VITALS: BP 132/81; PULSE 75
--- NOTE | 2022-08-22 14:35 | ECG_ITS ---
Measurements Intervals [place] Rate: 73 P: NM: 0 QRS: 50 QRSD: 91 T: 47 QT: 397 QTc: 438 Interpretive Statements ATRIAL FIBRILLATION POOR R-WAVE PROGRESSION COMPARED TO ECG 11/18/2020 11:24:53 NO SIGNIFICANT CHANGES Electronically Signed On 08-23-2022 19:14:36 WEB ANALYST by Olimpia Akers M.D.
[2022-08-22 15:11] LABS: Basophils Absolute Auto 0.02 K/mm3 (0.00-0.10); Basophils Percent Auto 0.2 % (0.0-1.0); Hematocrit 35.5 % (35.0-42.0); Immature Granulocyte Absolute 0.05 K/mm3 (0.00-0.00); Immature Granulocyte Percent A 0.5 % (0.0-0.0); Lymphocytes Absolute Auto 1.47 K/mm3 (1.10-4.50); Lymphocytes Percent Auto 14.3 % (18.0-42.0); Mean Corpuscular Hemoglobin 25.3 pg (27.0-31.0); Mean Corpuscular Volume 81.8 fL (78.0-102.0); Mean Platelet Volume 8.8 fl (9.2-11.8); Monocytes Percent Auto 11.7 % (2.0-11.0); Neutrophils Absolute Auto 7.6 K/mm3 (1.7-7.2); Neutrophils Percent Auto 73.3 % (50.0-70.0); Platelet Count Result 312 K/mm3 (150-420); Red Blood Count 4.34 M/mm3 (4.20-5.40); Red Cell Distribution Width 15.7 % (11.6-14.4); White Blood Count 10.3 K/mm3 (4.8-10.8)
[2022-08-22 15:32] LABS: Alanine Aminotransferase 12 U/L (14-59); Alkaline Phosphatase 131 U/L (46-116); Anion Gap 8 mmol/L (8-16); Aspartate Amino Transferase 13 U/L (15-37); Bilirubin,Total 0.8 mg/dL (0.00-1.00); Blood Urea Nitrogen 16 mg/dL (7-18); Calcium 8.9 mg/dL (8.5-10.1); Carbon Dioxide 27 mmol/L (21-32); Chloride 98 mmol/L (98-108); Estimated CRCL calculation 29 ml/min; Estimated Glomerular Filt Rate 50; Glucose 116 mg/dL (70-99); Osmolality Calculated 278 mOsm/kg (285-295); Potassium 3.6 mmol/L (3.5-5.1); Sodium 133 mmol/L (136-145); Total Protein 7.9 g/dL (6.4-8.2); Troponin I 5.5 ng/L (0.00-60.4)
[2022-08-22 15:33] LABS: Add Urine Microscopic? YES; Appearance Urine Clear (Clear); Bilirubin Urine Negative (Negative); Blood Urine 3+ (Negative); Color Urine Light Yellow (Yellow); Glucose Urine UA Negative (Negative); Ketones Urine Negative (Negative); Leukocyte Esterase Ur 2+ LEU/UL (Negative); Nitrate Urine Negative (Negative); Protein Urine 1+ (Negative)
[2022-08-22 15:37] LABS: Squamous Epithelial Cell Urine Few /hpf (Few); WBC Urine 21-30 /hpf (0-3)
[2022-08-22 15:38] LABS: Bacteria Urine 4+ /hpf
[2022-08-22 15:45] LABS: Lactic Acid Reflex 1.4 mmol/L (0.4-2.0)
[2022-08-22 16:05] VITALS: BP 121/7; PULSE 74; RESP 16; TEMP 36.6; O2SAT 97
== END 2022-08-22 16:15 | disposition home or self-care (01) ==
PROVIDERS: Emergency Provider Internal Medicine Critical Care Medicine; PCP Internal Medicine
DX: N39.0 Urinary tract infection, site not specified (principal); E86.0 Dehydration; I48.91 Unspecified atrial fibrillation
CPT/HCPCS: 36415; 80053; 81001; 83605; 84484; 85025; 87077; 87086; 87088; 87186; 93005; 99284

== ENCOUNTER 2022-12-09 10:22 | Outpatient (CLI) | payer MEDICARE, SELFPAY ==
--- NOTE | ~2022-12-09 | XR_ITS ---
XR chest 2V DATE: 12/09/2022 10:57 INDICATION: Cough and shortness of breath for one week TECHNIQUE: 2 views COMPARISON: 08/02/2021 PA and lateral chest FINDINGS: Cardiomegaly. Aortic calcification, ectasia and tortuosity. No hilar or mediastinal enlarge ment. Bilateral hyperinflation. No pulmonary infiltrate or consolidation, pleural effusion or pulmonary vas cular congestion or pneumothorax. Diffuse osteopenia. Thoracolumbar scoliosis. Neurotransmitter leads overlying the thoracic spinal canal. IMPRESSION: Cardiomegaly Aortic calcification, ectasia, tortuosity Bilateral hyperinflation No active pulmonary disease Reviewed, dictated and finalized at location B.
[2022-12-09 10:43] LABS: Basophils Absolute Auto 0.05 K/mm3 (0.00-0.10); Basophils Percent Auto 0.9 % (0.0-1.0); Eosinophils Absolute Auto 0.08 K/mm3 (0.02-0.50); Eosinophils Percent Auto 1.4 % (1.0-6.0); Hematocrit 37.3 % (35.0-42.0); Hemoglobin 11.6 g/dL (11.7-13.8); Immature Granulocyte Absolute 0.02 K/mm3 (0.00-0.00); Immature Granulocyte Percent A 0.4 % (0.0-0.0); Lymphocytes Absolute Auto 2.15 K/mm3 (1.10-4.50); Lymphocytes Percent Auto 37.8 % (18.0-42.0); Mean Corpuscular HGB Conc 31.1 g/dL (32.0-36.0); Mean Corpuscular Hemoglobin 24.5 pg (27.0-31.0); Mean Corpuscular Volume 78.9 fL (78.0-102.0); Mean Platelet Volume 8.5 fl (9.2-11.8); Monocytes Absolute Auto 0.68 K/mm3 (0.10-0.90); Neutrophils Absolute Auto 2.7 K/mm3 (1.7-7.2); Neutrophils Percent Auto 47.5 % (50.0-70.0); Platelet Count Result 355 K/mm3 (150-420); Red Blood Count 4.73 M/mm3 (4.20-5.40); Red Cell Distribution Width 15.5 % (11.6-14.4); White Blood Count 5.7 K/mm3 (4.8-10.8)
[2022-12-09 11:04] LABS: Alanine Aminotransferase 20 U/L (14-59); Albumin Level 3.5 g/dL (3.4-5.0); Alkaline Phosphatase 117 U/L (46-116); Anion Gap 6 mmol/L (8-16); Aspartate Amino Transferase 18 U/L (15-37); Bilirubin,Total 0.5 mg/dL (0.00-1.00); Blood Urea Nitrogen 17 mg/dL (7-18); Calcium 9.2 mg/dL (8.5-10.1); Carbon Dioxide 29 mmol/L (21-32); Chloride 100 mmol/L (98-108); Estimated Glomerular Filt Rate > 60; Glucose 91 mg/dL (70-99); Osmolality Calculated 281 mOsm/kg (285-295); Potassium 4.3 mmol/L (3.5-5.1); Sodium 135 mmol/L (136-145); Total Protein 7.8 g/dL (6.4-8.2)
[2022-12-09 11:21] LABS: NT Pro B Type Natriuretic Pept 1720 pg/mL (0-450)
== END 2022-12-09 10:23 | disposition home or self-care (01) ==
LOC: CHSLAB 10:26
PROVIDERS: PCP Internal Medicine; Visit Provider Internal Medicine
DX: R05.9 Cough, unspecified (principal); R06.02 Shortness of breath; I51.7 Cardiomegaly; R91.8 Other nonspecific abnormal finding of lung field; I70.0 Atherosclerosis of aorta
CPT/HCPCS: 36415; 71046; 80053; 83880; 85025

== ENCOUNTER 2022-12-19 12:39 | Outpatient (CLI) | payer MEDICARE, SELFPAY ==
--- NOTE | 2022-12-19 01:00 | ECHO_ITS ---
Patient Info Name: Jenn Tirado Age: 87 years : 1935 Gender: Female Ht: 66 in Wt: 147 lbs BSA: 1.77 m2 HR: 73 bpm BP: 134 / 71 mmHg Heart Rhythm: Atrial Fibrillation Technical Quality: Fair Exam Date: 12/19/2022 12:33 PM Exam Location: [facility] Patient Status: Outpatient Admit Date: 12/19/2022 Staff Ordering Physician: Bravo Bowen MD Supply Chain Coordinator: Eliz Franco RDCS Attending Provider: Bravo Bowen MD Referring Physician: Andrés ZHU; Exam Type: CA echo doppler color flow Study Info Indications R06.00 - Dyspnea, unspecified - CHF Complete two-dimensional, color flow and Doppler transthoracic echocardiogram is performed. History/Risk Factors Hypertension: Yes Dyslipidemia: No Congenital Heart Disease (CHD): No Peripheral Arterial Disease (PAD): No Myocardial Infarction ([place]): No Chronic Lung Disease: No Obesity: No Renal Disease: No Congestive Heart Failure (CHF): Hx CHF Cardiomyopathy/LV Systolic Dysfunction: No Diabetes Mellitus: No COPD: On Meds Tobacco Use: Never Cerebrovascular Disease: No DVT Treatment: Apixaban Deep Vein Thrombosis (DVT): None Dialysis: None Frailty Scale (CSHA): 3: Managing Well Cardiac Arrest: No Summary 1. Complete two-dimensional, color flow and Doppler transthoracic echocardiogram is performed. 2. Left ventricular chamber dimension is normal. 3. Ventricular septum is sigmoid shaped. No LVOT obstruction. 4. Left ventricular systolic function is normal, estimated at 60-65%. 5. The left ventricular diastolic function is normal. 6. E/e' 9 is minimally elevated. 7. Atrial fibrillation. 8. Left atrial chamber dimension is moderately enlarged. 9. Right atrial chamber dimension is severely enlarged. 10. There is mild aortic valve sclerosis. 11. There is mild aortic valve regurgitation. 12. The mitral valve has moderately calcified annulus. 13. There is mild mitral valve regurgitation. 14. There is moderate to severe tricuspid valve regurgitation. 15. Mild pulmonary hypertension, estimated pulmonary arterial systolic pressure is 41 mmHg. Left Ventricle Ventricular septum is sigmoid shaped. No LVOT obstruction. Atrial fibrillation. E/e' 9 is minimally elevated. Left ventricular chamber dimension is normal. Left ventricular systolic function is normal, estimated at 60-65%. The left ventricular diastolic function is normal. Right Ventricle Right ventricular systolic function is normal and with normal TAPSE 1.9 cm. Right ventricular chamber dimension is normal. Left Atria Left atrial chamber dimension is moderately enlarged. Right Atria Right atrial chamber dimension is severely enlarged. Aortic Valve The aortic valve is trileaflet. There is mild aortic valve sclerosis. There is no aortic valve stenosis. There is mild aortic valve regurgitation. Pulmonic Valve There is no pulmonic regurgitation. Mitral Valve The mitral valve has moderately calcified annulus. There is no mitral valve stenosis. There is mild mitral valve regurgitation. Tricuspid Valve There is moderate to severe tricuspid valve regurgitation. Mild pulmonary hypertension, estimated pulmonary arterial systolic pressure is 41 mmHg. Pericardium/Pleural There is no pericardial effusion. Inferior Vena Cava Normal inferior vena cava with >50% collapse upon inspiration consistent with normal right atrial press
== END 2022-12-19 12:40 | disposition home or self-care (01) ==
LOC: CHSIMG 12:41
PROVIDERS: PCP Internal Medicine; Visit Provider Internal Medicine
DX: I50.9 Heart failure, unspecified (principal); R06.00 Dyspnea, unspecified; I27.20 Pulmonary hypertension, unspecified; I08.3 Combined rheumatic disorders of mitral, aortic and tricuspid valves
CPT/HCPCS: 93306

== ENCOUNTER 2024-04-16 07:52 | Outpatient (CLI) | payer MEDICARE, SELFPAY ==
--- NOTE | ~2024-04-16 | MM_ITS ---
EXAMINATION: MM screening shukri BI w harjeet HISTORY: Screening TECHNIQUE: Craniocaudal and mediolateral oblique 3-D tomosynthesis images were obtained and synthetic 2-D images were generated. CAD analysis was submitted and interpreted. COMPARISON: Comparison to multiple prior studies sequentially, with oldest reviewed study dated 11/25. BREAST PARENCHYMAL COMPOSITION: Not dense: There are scattered areas of fibroglandular density. FINDINGS: There is no evidence of suspicious mass, calcification, or architectural distortion to sugg est malignancy in either breast. There has been no suspicious interval change. IMPRESSION: 1. No mammographic evidence of malignancy. 2. Recommend routine screening mammography in one year. BI-RADS Category 1: Negative Reviewed, dictated and finalized at location B.
== END 2024-04-16 07:53 | disposition home or self-care (01) ==
LOC: CHSIMG 07:55
PROVIDERS: PCP Internal Medicine; Visit Provider Internal Medicine
DX: Z12.31 Encounter for screening mammogram for malignant neoplasm of breast (principal)
CPT/HCPCS: 77063; 77067

== ENCOUNTER 2024-10-21 11:11 | Outpatient (CLI) | payer MEDICARE, SELFPAY ==
--- NOTE | ~2024-10-21 | XR_ITS ---
EXAMINATION: XR chest 2V DATE: 10/21/2024 11:40 INDICATION: Cough. Nausea. Diarrhea. TECHNIQUE: Frontal and lateral views of the chest were obtained. COMPARISON: Chest 2 views 12/09/2022, CT abdomen and pelvis 11/19/2020 FINDINGS: There are airspace opacities in left lower lobe with interval improvement. No pleural effus ion or pneumothorax. Cardiomegaly is noted. There are epidural electrodes in thoracic spine. IMPRESSION: 1. Airspace opacities in left lower lobe with interval improvement, consistent with atelectasis versu s pneumonia. 2. Cardiomegaly. Reviewed, dictated and finalized at location A. MECHANICS TEACHER IMPRESSION: 1. Airspace opacities in left lower lobe with interval improvement, consistent with atelectasis versus pneumonia. 2. Cardiomegaly.
[2024-10-21 11:43] LABS: Hematocrit 45.7 % (35.0-42.0); Hemoglobin 14.8 g/dL (11.7-13.8); Mean Corpuscular HGB Conc 32.4 g/dL (32-36); Mean Corpuscular Hemoglobin 30.3 pg (27.0-31.0); Mean Corpuscular Volume 93.5 fL (78.0-102.0); Mean Platelet Volume 9.3 fl (9.2-11.8); Platelet Count Result 200 K/mm3 (150-420); Red Blood Count 4.89 M/mm3 (4.20-5.40); Red Cell Distribution Width 12.6 % (11.6-14.4); White Blood Count 3.9 K/mm3 (4.8-10.8)
[2024-10-21 12:03] LABS: Alanine Aminotransferase 24 U/L (14-59); Albumin Level 3.4 g/dL (3.4-5.0); Alkaline Phosphatase 80 U/L (46-116); Amylase 55 U/L (25-115); Anion Gap 7 mmol/L (4-12); Aspartate Amino Transferase 25 U/L (15-37); Bilirubin,Total 0.6 mg/dL (0.00-1.00); Blood Urea Nitrogen 15 mg/dL (7-18); Calcium 8.8 mg/dL (8.5-10.1); Carbon Dioxide 29 mmol/L (21-32); Chloride 96 mmol/L (98-108); Estimated Glomerular Filt Rate > 60; Glucose 93 mg/dL (70-99); Lipase 70 U/L (16-77); NT Pro B Type Natriuretic Pept 1964 pg/mL (0-450); Osmolality Calculated 274 mOsm/kg (285-295); Potassium 4.4 mmol/L (3.5-5.1); Sodium 132 mmol/L (136-145); Total Protein 7.2 g/dL (6.4-8.2)
--- OUTSIDE RECORDS SUMMARY | 2024-10-21 12:07 | XMS_ITS | Clinical Summary ---
Author Organization [facility] Address [address] [place] [address] Care Team Providers Care Clinical Auditor Name Role Phone Bravo Bowen MD Primary Care Provider [phone] Allergies Active Allergy Reactions Criticality Noted Date Comments Adhesive Tape-Silicones Itching Low 08/16/2018 Nickel Itching Low 08/16/2018 Medications dilTIAZem CD 180 mg 24 hr capsule Take 1 capsule (180 mg total) by mouth every morning 2 Active Xarelto 20 mg tabletIndications :atrial fibrillation Take 1 tablet (20 mg total) by mouth nightly 2 Active vitamin B complex capsule Take 1 capsule by mouth every morning Active naproxen (ALEVE) 220 mg tablet Take by mouth as needed for pain Active cyanocobalamin (Vitamin B-12) 2,500 mcg tablet, sublingual DISSOLVE ONE TABLET UNDER TONGUE DAILY 4 Active ferrous sulfate 325 mg (65 mg of elemental iron) tablet Take 1 tablet (325 mg total) by mouth daily 4 Active loteprednol etabonate 0.38 % drops,gel Administer 1 drop into the right eye 4 (four) times a day 5 g 11 4 Active brimonidine-timol oL (COMBIGAN) 0.2-0.5 % ophthalmic solution Administer 1 drop into the right eye 2 (two) times a day 10 mL 11 4 Active erythromycin (ILOTYCIN) ophthalmic ointmentIndicatio ns:Corneal ulcer of right eye Apply to right eye 4 (four) times a day 3.5 g 3 4 Active moxifloxacin (VIGAMOX) 0.5 % ophthalmic solutionIndicatio ns:Corneal ulcer of right eye Administer 1 drop into the right eye every 2 (two) hours 3 mL 1 4 Active amLODIPine (NORVASC) 5 mg tablet 5 MG ORALLY DAILY 4 Active Active Problems Problem Noted Date Diagnosed Date Corneal ulcer of right eye 10/31/2023 Assessment & Plan (05/06/2024 4:23 PM CDT): Hx of corneal ulcer, right eye - enriquez-sensitive Strep disgalactiae that has since healed New epi defect today superior to previous ulcer with minimal infiltrate, adjacent K neov, 2-3+ corneal edema Possible large corneal abrasion induced by superior/inferior keratinization of fornices Sent in corneal cultures today Start Moxi q2h while awake, erythromycin mayra QID right eye (OD) Continue Lotemax BID, Combigan BID OD RTC with Dr. Glynn tomorrow for K check Assessment & Plan (03/01/2024 10:23 AM CDT): Stable, continue management per Dr Glynn Assessment & Plan (01/16/2024 10:07 AM CDT): enriquez-sensitive Strep disgalactiae - Initially presented to Dr. Chahal on 10/30/23 for right eye pain - found to have ulcer, cultured by Dr. Benavidez - 11/02: enlarged epi defect but still w/ healing epi edges, condensing infiltrate. Moxi q3h WA, LTX qid - 11/03: improved injection, epi defect stable, condensing infiltrate. Cont moxi 6-8x/d, LTX qid - 11/06 improving, continue current regimen. hold combigan for now (IOP 2). - improving symptoms, more irritation at night. Exam improving. Continue moxi q3h while awake and lotemax qid. Consider mouna when epi defect healed - 3/4 epi defect healed, infiltrate clearing, edema improved. Mouna qid, lotemax qid. Restart combigan bid (IOP 14 today) - 11/20: recurrent epi defect without infiltrate, suspect mechanical, switched to emycin mayra qid, cont combigan bid (Dr. Benavidez) - 11/22: epi defect improving, cont emycin mayra qid, restart lotemax bid - 11/29: symptoms improved, has been having some itching, epi healed, infiltrate improving -12/10: feeling better, mild residual scar, cont erythromycin mayra TID, LTX BID (dec from tid), combigan BID -01/07: Doing well, cont erythromycin mayra BID, reduce LTX daily, cont combigan BID -01/15: pt presents w/ c/o pain in the temporal corner since yesterday. Has improved today but still present. Exam revealed significant diffuse SPEE and mild haze, no new ulcer or infiltrate. Scar w/ thinning present inferonasally as previously documented. IOP low normal at 8- likely lower today due to k edema. On presentation there was a trichiatic lash UL w/ k touch. Likely cause of pain. Eyelashes very matted due to erythromycin bid, cleaned lids in office and checked for trichiatic lashes, reassured pt. Recommend gentle lid cleanse to clean ointment out of lashes daily. Continue erythromycin mayra bid OD, combigan bid OD, lotemax qd OD. Pt is scheduled for f/u w/ Dr. Glynn 04/08/24. Keep appointment as scheduled, return sooner prn. Assessment & Plan (11/21/2023 3:02 PM CDT): Recurrent epi defect Doubt chronic bacterial / fungal w/o infiltrate / healing edge across area of original infiltrate Does not appear dendritic No gtt maciel w/ instillation Most cw abrasion(pt does wipe across eye w/ tissue) Hold moxi/LTX Start LU oint OD qid (original strep sens to LU) Cont combigan OD bid RTC 2days w/ me/ Assessment & Plan (11/02/2023 2:08 PM INDUSTRIAL HEALTH ENGINEER): 2d f/u C&S Bact: Strep disgalactiae (sensitive to all) Fungal NGSF No recurrent pain Enlarged epi defect but still w/ healing epi edges Condensing infiltrate NST 90 to 80%NST cont Moxi Q3 WA Increase LTX OD qid (Seen w/ Dr. Glynn) RTC tomorrow w/ Dr. Glynn (told pt we most likely will cancel Dr. Silverman's appt on Monday and reschedule w/ ulcer resolution) Assessment & Plan (10/31/2023 9:37 AM INDUSTRIAL HEALTH ENGINEER): Resolved pain on Moxi q1 overnight (saw Dr. 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 - OS remains a suspect. Monitor off gtts. - IOP goal <14 - above goal today Plan: - Plan for GDI - tube ST - Discussed r/b of surgery, patient elects to proceed - Continue all drops until surgery Plan sulcus tube - long Avoid prolenes from sutured lens Rubén and Andra Discussed risk of graft failure and lens dislocation. The patient understands the risks, benefits, alternatives and wishes to proceed with glaucoma surgery. We discussed all viable surgical options including MIGS, lasers, and more invasive incisional surgeries. When taking a stepwise approach to glaucoma, the patient understands that the surgery is not curative and we may need to perform additional glaucoma surgery in the future. There is also risk for hypotony, bleeding, infection and rarely vision loss. The patient agrees to proceed with Molteno right eye. 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 - OS remains a suspect. Monitor off gtts. - IOP goal <14 - improved at goal today Plan: - continue to montior - If IOP remains high on f/u, would recommend GDD ST (place in sulcus with long tube, avoid prolenes buried in the sclera given fixated lens) -- please book with Dr. Aaron if IOP spikes in the future Assessment & Plan (01/21/2021 12:05 PM CDT): Confocal counts: 03/201901/21/2021 OD: 1426 1734 OS: 1134 1830 Repeat confocal OD 6 months Assessment & Plan (05/30/2019 11:38 AM CDT): Baseline confocal OD today: OD 1426 OS 1734 Repeat confocal OD 2 months Ptosis of eyelid, right 12/28/2018 Assessment & Plan (04/08/2022 12:02 PM CDT): Stable at this time Might need bleph but plan to see if Dr. Benavidez intervenes on her cornea Assessment & Plan (12/28/2018 2:28 PM CDT): Mild, NVS to patient I am scribing in the presence of Dr. Escoto on 12/28/2018, SONIA Mcwilliams. Other specified glaucoma 12/28/2018 Overview (09/16/2021): Mixed Mechanism: Post-Surgical + PXF S/p [employer] TRAINEE OD 08/2020 Hx of Complex Phaco OD, was left Aphakic then had secondary lens w/ DSEK 09/26/2018 w/ Dr. Benavidez Assessment & Plan (09/16/2021 5:10 PM INDUSTRIAL HEALTH ENGINEER): Today 09/16/21 VA OD 20/100 and OS 20/40 IOP OD 10, 20, 21 / IOP OS 17, 17 - Using: Dorz 3/0, Comb 2/0, X 1/0, Rock 1/0, FML 1/0 - No changes HVF OS 09/16/21: Reliable, improved c/t prior but still some nasal changes which may reflect rim artifact. 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 - OS remains a suspect. Monitor off gtts. - IOP goal <14 --> IOP not controlled Plan: - Will CPM for now and see patient in a few weeks. If IOP remains high on f/u, would recommend GDD ST (place in sulcus with long tube, avoid prolenes buried in the sclera given fixated lens) -- please book with Dr. Aaron Assessment & Plan (07/08/2021 5:04 PM CDT): Presents for iop check and Orellana visual field (HVF) OU status post (s/p) repeat diode [employer] TRA[employer]EE right eye (right eye (OD)) 08/2020 Assessment:Pseudoexfoliation glaucoma right eye (OD), Severe, controlled IOP today 16/13 on 5 classes right eye (OD), none OS - but slightly above goal today right eye (OD) - prior GVF both eyes showing central island extending to inferior temporal field right eye (OD) - performed relatively well on Orellana visual field (HVF) today Plan: - RTC in 8 weeks for intraocular pressure (IOP) check - repeat 24-2 left eye (OS) to see if nasal defect is reproducible - observe off drops for now since intraocular pressure (IOP) well controlled OS - For right eye (OD),Increase dorzolamide TID and brimonidine/timolol (Combigan) BID right eye (OD), latanoprost QHS right eye, Rocklatan qHS right eye Assessment & Plan (03/20/2020 10:20 AM CDT): Increased IOP Refer to glaucoma Assessment & Plan (05/30/2019 8:47 AM CDT): Improved IOP on combigan OD b.i.d. And latanoprost OD q.h.s. Recheck IOP 2 months Age-related nuclear cataract of left eye 019 Assessment & Plan (01/16/2024 10:07 AM CDT): Monitor w/ Dr. Silverman Assessment & Plan (09/14/2023 1:07 PM INDUSTRIAL HEALTH ENGINEER): Meeting ADLs Monitor Assessment & Plan (06/23/2023 10:26 AM CDT): Brunescent cataract but excellent VA (Endo count today 1716 ) May need ECCE in future combined w/ glaucoma procedure (Andra) or cornea tx (Renard) RTC 6mos w/ Dr. Glynn on Fri am Assessment & Plan (05/12/2023 3:46 PM CDT): VS but patient does not want an intervention at this time Continue to monitor Assessment & Plan (07/08/2021 4:59 PM CDT): - Patient 20/30 and happy with vision with symptoms of cataract despite mature cataract - observe and CEIOL when pt desires Assessment & Plan (01/21/2021 9:30 AM CDT): pt wants to wait for surgery until necessary, ADLs being met Assessment & Plan (12/28/2018 2:36 PM CDT): Discussed need of cataract extraction (CE)/IOL implant sx in the future. Ocular hypertension of right eye 11/13/2018 Overview (04/08/2022): DSEK/TSSIOL OD 09/26/18 Diode [employer] TRAINEE right eye (OD) x 2 (04/2020 and 07/2020) HVF 03/2020: central island OD, new vs 12/2018 S/p ahmed SPG OD 02/10/22 Left eye: possible inf arc vs rim defect on HVF since 04/07/20; OCT RNFL full 12/28/18 Assessment & Plan (03/01/2024 12:29 PM CDT): Intraocular pressure (IOP) 12 both eyes (OU) today GVF stable from prior Given DMV form, appropriate visual field (VF) Plan Continue combigan BID right eye (OD) RTC 1 year with HVF/OCT OU Assessment & Plan (01/16/2024 10:07 AM CDT): Follow up w/ Dr. Silverman as scheduled 03/01/24. Assessment & Plan (05/12/2023 3:46 PM CDT): OHTN OD - IOP at goal - doing well without concerns Assessment & Plan (10/21/2022 2:49 PM INDUSTRIAL HEALTH ENGINEER): OHTN OD - s/p Ahmed Os - IOP remains at goal - GVF today with central island OD, full OS - follow 6 months for IOP check Assessment & Plan (04/08/2022 12:02 PM CDT): OHTN OD S/p Ahmed OD - doing well, now on 1 class - IOP 10 OD - following with Dr. Benavidez as well - continue lotemax daily OD and brimonidine BID OD - follow 4-6 months with GVF OU Assessment & Plan (03/04/2022 12:35 PM CDT): S/p Ahmed SPG OD 02/10/22 FP8 OD given small orbits - placed in sulcus, could not remove iris from posterior endo Postoperative instructions were given. The patient is to use: PF BID x 1 week then daily x 1 week then stop Restart combigan BID OD Signs, symptoms of retinal detachment, tear, hole, and endophthalmitis were reviewed and the patient is to call immediately for concerns. We discussed that things should improve until they stabilize. Should there be any worsening of pain, vision, or redness the patient is to call. Followup 4 weeks or sooner for concerns Assessment & Plan (02/18/2022 11:55 AM CDT): POW1 Ahmed SPG OD FP8 OD given small orbits - placed in sulcus, could not remove iris from posterior endo A/c deep and no choroidals despite low iop today Postoperative instructions were given. The patient is to use: ofloxacin QID X 1 week Prednisolone Acetate 1% QID Signs, symptoms of retinal detachment, tear, hole, and endophthalmitis were reviewed and the patient is to call immediately for concerns. We discussed that things should improve until they stabilize. Should there be any worsening of pain, vision, or redness the patient is to call. Followup 2 weeks or sooner for concerns. Assessment & Plan (02/11/2022 10:40 AM CDT): POD1 Placement Glaucoma Drainage Implant With Scleral Patch Graft - Right FP8 OD given small orbits - placed in sulcus, could not remove iris from posterior endo Postoperative instructions were given. The patient is to use: ofloxacin QID X 1 week Prednisolone Acetate 1% QID Patient is to wear the shield at bedtime X 1 week. Signs, symptoms of retinal detachment, tear, hole, and endophthalmitis were reviewed and the patient is to call immediately for concerns. We discussed that things should improve until they stabilize. Should there be any worsening of pain, vision, or redness the patient is to call. Followup 1 week or sooner for concerns. 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 repeat diode [employer]EE right eye (right eye (OD)) 08/2020 IOP today 14 on 5 classes OS only and FML Qdaily - at goal Central island in 03/2020 vs 12/2018, but limited reliability Did very well on GVF today both eyes showing central island extending to inferior temporal field right eye (OD) Doing well on current regimen - continue the same drops Continue dorzolamide and brimonidine/timolol (Combigan) BID right eye (OD), latanoprost QHS right eye, Rocklatan qHS right eye - discuss with pt if she is ok to stop latanoprost next visit (did not want to change drops; explained that rocklatan already has latanoprost as a component) RTC in 3 months for Orellana visual field (HVF) 10-2 right eye (OD) and 24-2 left eye (OS) Following with Dr. Benavidez - alert if intraocular pressure (IOP) elevated Assessment & Plan (12/31/2020 1:21 PM CDT): IOP today 14 on 5 classes OS only and FML Qdaily. [facility] in 03/2020 vs 12/2018, but limited reliability Continue dorzolamide and brimonidine/timolol (Combigan) BID right eye (OD), latanoprost QHS right eye, Rocklatan qHS right eye If stable, RTC 3 months with GVF Following with Dr. Benavidez in 1 month - will alert me if IOP too high Assessment & Plan (12/03/2020 2:15 PM CDT): IOP today 13 on 5 classes OS only and FML Qdaily. Improved with addition of Rocklatan [facility] in 03/2020 vs 12/2018, but limited reliability Continue dorzolamide and brimonidine/timolol (Combigan) BID right eye (OD), latanoprost QHS right eye, Rocklatan qHS right eye Doing well Follow 4 weeks Assessment & Plan (10/22/2020 8:59 PM INDUSTRIAL HEALTH ENGINEER): IOP today 19/15 on 4 classes OS only and FML Qdaily. [facility] in 03/2020 vs 12/2018, but limited reliability HVF: [employer] OD, wnl OS Discussed r/b/a, including PO DAVID or 5th class. Patient elected trial of Rocklatan. If cost-prohibitive, will get BMP with PCP, and if okay, trial of Diamox (provided paper Rx per family's request as patient lives some distance away) Continue dorzolamide and brimonidine/timolol (Combigan) BID right eye (OD), latanoprost QHS right eye RTC 6 weeks for IOP recheck, sooner PRN Assessment & Plan (09/02/2020 10:12 AM INDUSTRIAL HEALTH ENGINEER): 3 week follow-up repeat diode [employer] right eye (OD). No significant pain or discomfort. Using drops as prescribed. IOP today 24/18 on latanoprost OS only and Pred Forte Qdaily. IOP a bit high, but still on Pred Forte instead of FML and only 1 class. IOP in high-teens likely OK with this poor visual potential eye Switch back to FML Qdaily per Dr. Benavidez (refill re-sent) Restart dorzolamide and brimonidine/timolol (Combigan) BID right eye (OD) Continue latanoprost QHS right eye (OD) Plan for follow-up in 6-8 weeks for IOP check in [facility] on a . This patient was originally allowed to the fellow's schedule as an urgent add-on from Dr. Benavidez. As I will be graduating in March, discussed transitioning her to long-term glaucoma care. Will have her come back in [facility] to meet Dr. Silverman who may be able to follow her after I leave Assessment & Plan (08/12/2020 10:22 AM INDUSTRIAL HEALTH ENGINEER): 1 week follow-up repeat diode [employer]EE right eye (OD). No significant pain or discomfort the last week. Using drops as prescribed. IOP today 3 Start steroid taper with Pred Forte TID for 1 week, then BID, then QD (will eventually go back to FML per Dr. Benavidez) Discontinue dorzolamide and brimonidine/timolol (Combigan). Will keep on latanoprost expecting IOP will increase over the next few weeks Plan for follow-up in 3 weeks for IOP check Assessment & Plan (08/04/2020 3:33 PM INDUSTRIAL HEALTH ENGINEER): Patient here for diode cyclophotocoagulation of the right eye (OD). Denies significant changes to vision. IOP today 26 on max drops since adding dorzolamide and latanoprost back to eye, which is above our goal. Discussed risks, benefits, and alternatives to procedure and patient wishes to proceed (consent signed separately). Proceed with diode [employer]EE right eye (OD) today Tolerated procedure well Continue present management on all glaucoma drops Start Pred Forte QID and atropine TID PRN in procedure eye Plan for follow-up in 1 week for post-procedure check Assessment & Plan (07/16/2020 4:20 PM INDUSTRIAL HEALTH ENGINEER): 6 week follow-up. 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 Unfortunately first diode didn't control IOP long-term. Discussed options including repeat diode vs tube vs more intensive medication regimen vs oral DAVID. Patient wishes to try max drops and tentatively scheduling repeat diode [employer]EE Continue present management on: Brimonidine/timolol (Combigan) BID right eye (OD) FML Qdaily right eye (OD) (chronic) Add: Dorzolamide BID right eye (OD) Latanoprost QHS right eye (OD) Plan for follow-up on 08/04 at [facility] for IOP check. If IOP remains elevated, will do repeat diode [employer]EE right eye (OD) Assessment & Plan (06/04/2020 2:47 PM CDT): 4 weeks status post (s/p) diode [employer]EE right eye (OD). No pain or discomfort. Using drops as prescribed. IOP today 22 IOP slightly above goal. Continue present management on brimonidine/timolol (Combigan) right eye (OD) and add latanoprost QHS right eye (OD) On Pred Forte Qdaily for 1 more week then back to chronic FML Plan for follow-up in 1 month. If stable can spread visits out and eventually back to Dr. Benavidez To see Dr. Benavidez 01/21/21 Assessment & Plan (05/13/2020 8:49 AM CDT): 1 week follow-up diode [employer]EE right eye (OD). No pain or discomfort the last week. Using drops as prescribed. IOP today 6 Start steroid taper with Pred Forte TID for 1 week, then BID, then QD, and then stop Can stop atropine Discontinue dorzolamide and latanoprost. Will keep on brimonidine/timolol (Combigan) expecting IOP will increase over the next few weeks Plan for follow-up in 3 weeks for IOP check Assessment & Plan (05/05/2020 3:34 PM CDT): Patient here for diode cyclophotocoagulation of the right eye (OD). Denies significant changes to vision. IOP today 29 on 4 classes, which is above our goal. Discussed risks, benefits, and alternatives to procedure and patient wishes to proceed (consent signed separately). Proceed with diode [employer] TRAINEE right eye (OD) today Tolerated procedure well Continue present management on brimonidine/timolol (Combigan), dorzolamide, and latanoprost right eye (OD) Start Pred Forte QID and atropine TID in procedure eye Plan for follow-up in 1 week for post-procedure check Assessment & Plan (04/07/2020 11:10 AM CDT): IOP improved right eye (OD) to 17 today on 4 classes. Increased to 28 after dilation. Gonioscopy with high PAS. Some areas open. Likely multi-factorial from chronic steroid usage and now angle closure from PAS. HVF with significantly worsened peripheral field right eye (OD). Central island remaining Discussed options include aggressive medical management (IOP OK pre-dilation 4 classes), but more likely will need surgery to prevent further vision loss (ST tube would be difficult due to PAS in that area). Discussed corneal decompensation from any surgical intervention Could also consider light diode H[employer] TRAINEE Will discuss with Dr. Benavidez and cornea team. Will call this week to discuss options with patient For now, continue present management on brimonidine/timolol (Combigan), dorzolamide, and latanoprost right eye (OD) Assessment & Plan (03/20/2020 10:25 AM CDT): IOP 37 OD on 3 agents today Start dorzolamide BID OD Recommend evaluation w/ glaucoma within next few weeks Assessment & Plan (07/30/2019 9:39 AM INDUSTRIAL HEALTH ENGINEER): IOP OD 16 by applanation Today and previous visit lower IOP by applanation, in the future will check IOP with applanation Plan: CCM combigan OD b.i.d. And latanoprost OD q.h.s. Assessment & Plan (12/28/2018 2:34 PM CDT): intraocular pressure (IOP)'s good today. Combination of pseudo exfoliation (PXF) and surgeries. Positive family history- Mother. H/o pseudo exfoliation (PXF), complicated cataract extraction (CE) SX vitrectomy with blinder, DSEK and sutured intraocular lens (IOL) right eye (OD) in September by [facility]. Gtts: FML BID OD (reducing to BID), Vyzulta QHS OD, Timolol BID right eye (OD). No longer using latanoprost or PF Assessment & Plan (11/29/2018 1:44 PM CDT): Elevated, concern for steroid response -- Per above Assessment & Plan (11/29/2018 1:42 PM CDT): Elevated today, concern for steroid response -- Start PGA S/p DSEK/TSSIOL OD 09/26/18 09/27/2018 Overview (01/16/2024): -Dr. Benavidez Assessment & Plan (05/06/2024 4:24 PM CDT): Significant K edema and d folds today. Concern for concurrent graft failure. Keep f/u with Dr. Glynn tomorrow. Assessment & Plan (10/30/2023 11:35 AM INDUSTRIAL HEALTH ENGINEER): -presents today for same day add on; pain OD x middle of the night; much more painful compared to prev episodes of intermittent pain OD -currently using lotemax SM qid OD and brimonidine bid OD (+)1mmH x 1mmV K ulcer on graft tissue; also with newly noted KNV, DMF, stromal edema, MCE OD -concern for graft rejection OD; discussed case with Dr. Glynn who will gladly see patient today -pt to see Dr. Glynn today Assessment & Plan (09/14/2023 1:36 PM INDUSTRIAL HEALTH ENGINEER): OD -20/200 VA -pain likely related to diffuse PEE -cont gtts -cosopt BID OD - increase LTX QID OD Keep Dr. Glynn / Andra Nov Assessment & Plan (06/23/2023 10:23 AM CDT): Confocal today OD uncountable OS 1716 OD w/ 20/200 VA ADLs still being met Observe (Consider PKP/ PAS lysis / iris suture pupilloplasty in future w/ decreased VA/ ADLs) Assessment & Plan (10/21/2022 12:18 PM INDUSTRIAL HEALTH ENGINEER): Confocal 03/2904/08/22 today OD 1426 1734 1164 649 OS 1134 1830 1751 1888 Precipitous loss of cells twice over now OD (stable OS) - appears a ral trend Pt happy w/ ADLs (achieving gross stereopsis) Given shallow chamber, w/ further BK will need PAS lysis combined w/ iris suture pupilloplasty and PKP - discussed w/ pt, daughter and then Dr. Silverman RTC me 6-8mos w/ repeat confocal Consider PAS lysis if consistently reduced Assessment & Plan (04/08/2022 10:36 AM CDT): Confocal 03/29 01/29 today OD 1426 1734 1164 OS 1134 1830 1751 highly variable - recheck confocal OD 6mos Consider PAS lysis if consistently reduced Assessment & Plan (01/21/2021 1:27 PM CDT): Stable, MRx today 20/70 OD Plan: MRx given IOP 13 OD and 14 OS, stable per last visit [address] Silverman Continue dorzolamide BID OD FML qd OD Combigan BID OD Latanoprost qhs OD rocklatan qhs OD RTC 12mos w/ confocal Assessment & Plan (03/20/2020 10:22 AM CDT): Clear graft FML OD QD RTC 1yr me Assessment & Plan (07/30/2019 9:48 AM INDUSTRIAL HEALTH ENGINEER): Stable, MRx today 20/60 OD Plan: MRx given IOP acceptable Continue latanoprost OD q.h.s. and Combigan OD b.i.d. Continue FML OD q.day RTC 6mos w/ confocal (baseline given superior PAS- confocal not working today) Assessment & Plan (05/30/2019 8:46 AM CDT): Filaments resolved IOP today wnl Plan: CCM Continue combigan OD b.i.d. Continue latanoprost OD q.h.s. Continue plan to taper FML to qdaily OD in 2 weeks MRx today return in 2 months for IOP check and confocal Assessment & Plan (05/16/2019 11:34 AM CDT): Filaments resolved FML OD BID x 1 month, then qd Elevated IOP Discontinue Vyzulta Discontinue timolol Add combigan OD b.i.d. Add latanoprost OD q.h.s. 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 Continue Vyzulta OD qhs Continue Timolol OD BID Seeing Dr Escoto glaucoma in 2 weeks - Continue FML OD TID - continue Lotemax ointment OD q.h.s until out. 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 - Restart Eliquis - Reviewed signs/symptoms endophthalmitis, RT/RD; patient to call immediately if any worsening vision, pain, redness, flashes/floaters/curtains - No lifting/bending/swimming. Eye shield while sleeping, protective eyewear during day. 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 -confocal today with 1087 cells OD, will get confocal OS next visit -no cell/inflammation today -discussed that we could stage the secondary IOL but would likely require endothelial keratoplasty after scleral sutured IOL, thus will plan for combined procedure REC: Secondary TSSPCIOL w/ DSEKOD Risks, benefits, and alternatives of surgery discussed in detail with patient including but not limited to infection, bleeding, persistent inflammation, pain, diplopia, ptosis, need for further visits and surgeries, need for spectacle or contact lens correction after surgery, possible loss of vision, possible loss of the eye, and risks of anesthesia. The patient understands these risks and wishes to proceed. 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 Rendon) Family History Medical History Relation Name Comments No Known Problems Father Glaucoma Mother Cataracts Neg Hx Fuchs' dystrophy Neg Hx Macular degeneration Neg Hx Retinal detachment Neg Hx Relation Name Status Comments Father Mother Social History Tobacco Use Types Packs/Day Years Used Date Smoking Tobacco: Never Smokeless Tobacco: Never Alcohol Use Standard Drinks/Week Comments No 0 (1 standard drink = 0.6 oz pur e alcohol) AUDIT-C Answer Date Recorded Q1: How often do you have a drink containing alc ohol? Monthly or less 02/10/2022 Q2: How many drinks containi ng alcohol do you have on a typical day when you are drinking? 1 or 2 02/10/2022 Q3: How often do you have si x or more drinks on one occasion? Never 02/10/2022 Comments No Sex and Gender Information Value Date Recorded Sex Assigned at Not on file Legal Sex Female 2:28 AM INDUSTRIAL HEALTH ENGINEER Gender Identity Not on file Sexual Orientation Not on file Obstetrics History Last Filed Vital Signs Vital Sign Reading Time Taken Comments Blood Pressure 105/71 02/10/2022 12:30 PM CDT Pulse 50 02/10/2022 12:30 PM CDT Temperature 36.3 C (97.3 F) 02/10/2022 12:14 PM CDT Respiratory Rate 14 02/10/2022 12:30 PM CDT Oxygen Saturation 97% 02/10/2022 12:30 PM CDT Inhaled Oxygen Concentration - - Weight 68 kg (150 lb) 02/10/2022 10:58 AM CDT Height 167.6 cm (5' 6 ) 02/10/2022 10:58 AM CDT Body Mass Index 24.21 02/10/2022 10:58 AM CDT Plan of Treatment Health Maintenance Due Date Last Done Comments Depression Screening 1936 DTaP/Tdap/Td Vaccine (1 - Tdap) 1947 Hepatitis B Screening 1954 Zoster Vaccine (1 of 2) 1986 Well Visit 65+ 2001 Pneumococcal vaccine 65+ (2 of 2 - PCV) 07/17/2015 07/17/2014 Fall Risk Assessment 02/10/2023 02/10/2022 Covid-19 Vaccine (4 - 2023-2 5 season) 2024 07/02/2021, 11/06/2020, 10/09/2020 Influenza Vaccine (#1) 2024 3, 06/21/2022, 06/16/2021, Additional history exists Medical Devices Implanted Type Area Pouncer Machine Device Identifier Shelf Expiration Date Model / Serial / Lot [employer] Tutoplast Iopatch 1x.6cm Dehydrate Processed Allograft Graft Soft 19450 - [id number] - [id number] Implanted:Qty : 1 on 02/10/2022 by Deisi Silverman MD at [facility] Graft Right: Eye [employer] 08/10/2026 [id number] / [id number] / [id number] [employer] [id number].240 Slant 7mm 12.5mm 1 Piece Uv Absorbent Eyelet Posterior Chamber 5 - [id number] - [id number] Implanted:Qty : 1 on 09/26/2018 by Aram Benavidez MD at [facility] Lens Right: Eye [employer] [id number] 02/08/2021 CZ70BD.2 40 / [id number] / 0 Cornea-Dsek Implanted:Qty : 1 on 09/26/2018 by Aram Benavidez MD at [facility] Medicine Other - see comments Right: Cornea Mid [employer]iss [employer] 10/08/2018 / [id number] / [id number] Description:Cornea [employer] Ahmed Glaucoma Valve Flexible Plate .635mm .305mm 10x9.6mm 25mm Fp8 - [id number] - [id number] Implanted:Qty : 1 on 02/10/2022 by Deisi Silverman MD at [facility] Medicine Other - see comments Right: Eye [employer] [id number] 07/04/2023 [facility] / [id number] / [id number] Description:AHMED GLAUCOMA V ALVE Spinal Cord Stimulator Spinal Cord Stimulator Back Insurance MEDICARE [facility] MEDICARE Address: [facility] [address] [place] [address] MEDICARE [facility] Address: [address] [address] [place] [address] [facility] MEDICARE SOLUTIONS MEDICARE [facility] MEDICARE Address: [address] [address] [place] [address] Care Teams Clinical Auditor Relationship Specialty Start Date End Date Bravo Bowen MD [address] [place] [address] PCP - General Internal Medicine 01/21/21
--- OUTSIDE RECORDS SUMMARY | 2024-10-21 12:07 | XMS_ITS | Clinical Summary ---
Author Organization [facility] Address [facility] [place] [address] Care Team Providers Care Clerical Specialist Name Role Phone Unavailable Primary Care Provider Unavailabl e Social History Tobacco Use Types Packs/Day Years Used Date Smoking Tobacco: Never Assessed Comments Unknown Sex and Gender Information Value Date Recorded Sex Assigned at Not on file Legal Sex Female 9:20 PM CDT Gender Identity Not on file Sexual Orientation Not on file Last Filed Vital Signs Vital Sign Reading Time Taken Comments Blood Pressure 130/80 10/13/2015 1:18 PM SIX COLOR PRESS OPERATOR Pulse 92 10/13/2015 1:18 PM SIX COLOR PRESS OPERATOR Temperature - - Respiratory Rate - - Oxygen Saturation - - Inhaled Oxygen Concentration - - Weight 70.3 kg (155 lb) 10/13/2015 1:18 PM SIX COLOR PRESS OPERATOR Height 170.2 cm (5' 7 ) 10/13/2015 1:18 PM SIX COLOR PRESS OPERATOR Body Mass Index 24.28 10/13/2015 1:18 PM SIX COLOR PRESS OPERATOR Plan of Treatment Health Maintenance Due Date Last Done Comments DTaP, Tdap and Td Vaccines ( 1 - Tdap) 1955 Zoster Vaccines (1 of 2) 1986 Pneumococcal Vaccine: 65+ Ye ars (1 of 1 - PCV) 2001 RSV Immunization or 60+ Years (1 - 1-dose 75+ series) 2011 COVID-19 Vaccine ( - 2023-2 5 season) 2024 Influenza Adult (#1) 2024 07/12/2015 Meningococcal B Vaccine Aged Out No l onger eligible based on patient's age to complete this topic Meningococcal Vaccine Aged Out No diana maria a eligible based on patient's age to complete this topic RSV Immunizations Under 20 Months Aged Out No longer eligible based on patient's age to complete this topic
--- OUTSIDE RECORDS SUMMARY | 2024-10-21 12:07 | XMS_ITS | Referral Summary ---
Author Organization [facility] Address [address] [place] [address] Care Team Providers Care Bed Setter Name Role Phone Bravo Bowen MD Primary Care Provider [phone] Encounters Date Type Department Care Team Description 10/09/2024 10:15 AM SECURITY SYSTEMS INSTALLER Office Visit [facility] Ophthalmology [address] [facility] [address] [place] [address] Suzy Glynn MD PhD S/p DSEK/TSSIOL OD 09/26/18 (Primary Dx) from Last 3 Months Allergies Active Allergy Reactions Criticality Noted Date [...] Consider mouna when epi defect healed - 11/12 epi defect healed, infiltrate clearing, edema improved. [...] me/ Assessment & Plan (11/02/2023 2:08 PM SECURITY SYSTEMS INSTALLER): 2d f/u C&S Bact: Strep disgalactiae (sensitive [...] resolution) Assessment & Plan (10/31/2023 9:37 AM SECURITY SYSTEMS INSTALLER): Resolved pain on Moxi q1 overnight (saw [...] eye. 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 Benavidez Assessment & Plan (09/16/2021 5:10 PM SECURITY SYSTEMS INSTALLER): Today 09/16/21 VA OD 20/100 and OS [...] (HVF) OU status post (s/p) repeat diode REGULATORY LAW SPECIALIST right eye (right eye (OD)) 08/2020 Assessment:Pseudoexfoliation [...] Silverman Assessment & Plan (09/14/2023 1:07 PM SECURITY SYSTEMS INSTALLER): Meeting ADLs Monitor Assessment & Plan (06/23/2023 [...] 11/13/2018 Overview (04/08/2022): DSEK/TSSIOL OD 09/26/18 Diode REGULATORY LAW SPECIALIST right eye (OD) x 2 (04/2020 and [...] concerns Assessment & Plan (10/21/2022 2:49 PM SECURITY SYSTEMS INSTALLER): OHTN OD - s/p Ahmed Os - [...] to pseudoexfoliation and prior surgeries repeat diode REGULATORY LAW SPECIALIST right eye (right eye (OD)) 08/2020 IOP [...] 5 classes OS only and FML Qdaily. [facility] 03/2020 vs 12/2018, but limited reliability [...] FML Qdaily. Improved with addition of Rocklatan [facility] in 03/2020 vs 12/2018, but limited reliability Continue dorzolamide and brimonidine/timolol (Combigan) BID right eye (OD), latanoprost QHS right eye, Rocklatan qHS right eye Doing well Follow 4 weeks Assessment & Plan (10/22/2020 8:59 PM SECURITY SYSTEMS INSTALLER): IOP today 19/15 on 4 classes OS only and FML Qdaily. [facility] in 03/2020 vs 12/2018, but limited reliability HVF: [place] OD, wnl OS Discussed r/b/a, including PO [...] PRN Assessment & Plan (09/02/2020 10:12 AM SECURITY SYSTEMS INSTALLER): 3 week follow-up repeat diode REGULATORY LAW SPECIALIST right eye (OD). No significant pain or discomfort. Using drops as prescribed. IOP today on latanoprost OS only and Pred Forte [...] in 6-8 weeks for IOP check in [facility] on a . This patient was originally allowed to the fellow's schedule as an urgent add-on from Dr. Benavidez. As I will be graduating in March, discussed transitioning her to long-term glaucoma care. Will have her come back in [facility] to meet Dr. Silverman who may be able to follow her after I leave Assessment & Plan (08/12/2020 10:22 AM SECURITY SYSTEMS INSTALLER): 1 week follow-up repeat diode REGULATORY LAW SPECIALIST right eye (OD). No significant pain or [...] check Assessment & Plan (08/04/2020 3:33 PM SECURITY SYSTEMS INSTALLER): Patient here for diode cyclophotocoagulation of the right eye (OD). Denies significant changes to vision. IOP today 26 on max drops since adding dorzolamide and latanoprost back to eye, which is above our goal. Discussed risks, benefits, and alternatives to procedure and patient wishes to proceed (consent signed separately). Proceed with diode REGULATORY LAW SPECIALIST right eye (OD) today Tolerated procedure well Continue present management on all glaucoma drops Start Pred Forte QID and atropine TID PRN in procedure eye Plan for follow-up in 1 week for post-procedure check Assessment & Plan (07/16/2020 4:20 PM SECURITY SYSTEMS INSTALLER): 6 week follow-up. 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 Unfortunately first diode didn't control IOP long-term. Discussed options including repeat diode vs tube vs more intensive medication regimen vs oral DAVID. Patient wishes to try max drops and tentatively scheduling repeat diode REGULATORY LAW SPECIALIST Continue present management on: Brimonidine/timolol (Combigan) BID right eye (OD) FML Qdaily right eye (OD) (chronic) Add: Dorzolamide BID right eye (OD) Latanoprost QHS right eye (OD) Plan for follow-up on 08/[facility] for IOP check. If IOP remains elevated, will do repeat diode REGULATORY LAW SPECIALIST right eye (OD) Assessment & Plan (06/04/2020 2:47 PM CDT): 4 weeks status post (s/p) diode REGULATORY LAW SPECIALIST right eye (OD). No pain or discomfort. [...] 8:49 AM CDT): 1 week follow-up diode REGULATORY LAW SPECIALIST right eye (OD). No pain or discomfort [...] proceed (consent signed separately). Proceed with diode REGULATORY LAW SPECIALIST right eye (OD) today Tolerated procedure well [...] surgical intervention Could also consider light diode REGULATORY LAW SPECIALIST Will discuss with Dr. Benavidez and cornea team. Will call this week to discuss options with patient For now, continue present management on brimonidine/timolol (Combigan), dorzolamide, and latanoprost right eye (OD) Assessment & Plan (03/20/2020 10:25 AM CDT): IOP 37 OD on 3 agents today Start dorzolamide BID OD Recommend evaluation w/ glaucoma within next few weeks Assessment & Plan (07/30/2019 9:39 AM SECURITY SYSTEMS INSTALLER): IOP OD 16 by applanation Today and [...] tomorrow. Assessment & Plan (10/30/2023 11:35 AM SECURITY SYSTEMS INSTALLER): -presents today for same day add on; [...] today Assessment & Plan (09/14/2023 1:36 PM SECURITY SYSTEMS INSTALLER): OD -20/200 [facility] -pain likely related to [...] ADLs) Assessment & Plan (10/21/2022 12:18 PM SECURITY SYSTEMS INSTALLER): Confocal 03/2904/08/22 today OD 1426 1734 1164 [...] me Assessment & Plan (07/30/2019 9:48 AM SECURITY SYSTEMS INSTALLER): Stable, MRx today 20/60 OD Plan: MRx [...] controlled Assessment & Plan (11/13/2018 3:33 PM SECURITY SYSTEMS INSTALLER): Postop 1.5mo s/p DSEK/TSSIOL OD (09/26/18) for [...] OD Assessment & Plan (10/30/2018 3:47 PM SECURITY SYSTEMS INSTALLER): Postop mo 1 s/p DSEK/TSSIOL OD (09/26/18) 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 Social History Tobacco Use Types Packs/Day Years [...] on file Legal Sex Female 2:28 AM SECURITY SYSTEMS INSTALLER Gender Identity Not on file Sexual Orientation [...] 02/10/2022 10:58 AM CDT Plan of Treatment Not on file Medical Devices Implanted Type Area Buttonhole Marker Device Identifier Shelf Expiration Date Model / Serial / Lot [employer] Tutoplast Iopatch 1x.6cm Dehydrate Processed Allograft Graft Soft 42006 - [id number] - [id number] Implanted:Qty : 1 on 02/10/2022 by Deisi Silverman MD at [facility] Graft Right: Eye [employer] 08/10/2026 [id number] / [id number] / [id number] Daniel Surgical Cz70bd.240 Slant 7mm 12.5mm 1 Piece Uv Absorbent Eyelet Posterior Chamber 5 - [id number] - [id number] Implanted:Qty : 1 on 09/26/2018 by Aram Benavidez MD at [facility] Lens Right: Eye [employer] [id number] 02/08/2021 CZ70BD.2 40 / [id number] / 0 Cornea-Dsek Implanted:Qty : 1 on 09/26/2018 by Aram Benavidez MD at [facility] Other - see comments Right: Cornea Mid Kriss Trans[employer] Srvcs 10/08/2018 / [id number] / [id number] Description:Cornea [employer] Ahmed Glaucoma Valve Flexible Plate .635mm .305mm 10x9.6mm 25mm Fp8 - [id number] - [id number] Implanted:Qty : 1 on 02/10/2022 by Deisi Silverman MD at [facility] Other - see comments Right: Eye [employer] [id number] 07/04/2023 THERESA8 / [id number] / [id number] Description:AHMED GLAUCOMA V ALVE Spinal Cord Stimulator Spinal Cord Stimulator Back Insurance MEDICARE SOLUTIONS MEDICARE [facility] MEDICARE SOLUTIONS MEDICARE SOLUTIONS Care Teams Bed Setter Relationship Specialty Start Date End Date Bravo Bowen MD [address] [place] [address] PCP - General Internal Medicine 01/21/21
[2024-10-21 12:20] LABS: SARS-CoV-2 RNA PCR Negative (Negative)
[2024-10-21 12:21] LABS: Influenza A QL RT-PCR Positive (Negative); Influenza B QL RT-PCR Negative (Negative); RSV RNA, RT-PCR Negative (Negative)
[2024-10-21 12:25] LABS: Band Neutrophils Percent 0 % (0-6); Basophils Percent Manual 0 % (0-1); Eosinophils Absolute Manual 0.03 K/mm3 (0.02-0.50); Eosinophils Percent Manual 1 % (1-6); Lymphocytes Absolute Manual 1.48 K/mm3 (1.1-4.5); Lymphocytes Percent Manual 38 % (18-44); Monocytes Percent Manual 0 % (3-9); Neutrophils Absolute Manual 1.98 K/mm3 (1.7-7.2); Neutrophils Percent Manual 51 % (46-73); Platelet Estimate Adequate (Adequate); Total Cells Counted 100
== END 2024-10-21 11:12 | disposition home or self-care (01) ==
LOC: CHSLAB 11:15
PROVIDERS: PCP Internal Medicine; Visit Provider Internal Medicine
DX: J06.9 Acute upper respiratory infection, unspecified (principal); R19.7 Diarrhea, unspecified; R05.9 Cough, unspecified; I50.9 Heart failure, unspecified; R91.8 Other nonspecific abnormal finding of lung field; I51.7 Cardiomegaly
CPT/HCPCS: 36415; 71046; 80053; 82150; 83690; 83880; 85025; 87637

== ENCOUNTER 2024-10-24 15:35 | Outpatient (CLI) | payer MEDICARE, SELFPAY ==
--- OUTSIDE RECORDS SUMMARY | 2024-10-24 15:44 | XMS_ITS | Clinical Summary ---
Author Organization [facility] Address [facility] [place] [address] Care Team Providers Care Designer And Patternmaker Name Role Phone Unavailable Primary Care Provider [...] Comments Blood Pressure 130/80 10/13/2015 1:18 PM TRAFFIC ASSISTANT Pulse 92 10/13/2015 1:18 PM TRAFFIC ASSISTANT Temperature - - Respiratory Rate - - Oxygen Saturation - - Inhaled Oxygen Concentration - - Weight 70.3 kg (155 lb) 10/13/2015 1:18 PM TRAFFIC ASSISTANT Height 170.2 cm (5' 7 ) 10/13/2015 1:18 PM TRAFFIC ASSISTANT Body Mass Index 24.28 10/13/2015 1:18 PM TRAFFIC ASSISTANT Plan of Treatment Health Maintenance Due Date [...]
--- OUTSIDE RECORDS SUMMARY | 2024-10-24 15:44 | XMS_ITS | Referral Summary ---
Author Organization [facility] Address [address] [place] [address] Care Team Providers Care Graphic Manager Name Role Phone Bravo Bowen MD Primary Care Provider [phone] Encounters Date Type Department Care Team Description 10/09/2024 10:15 AM CROWN AND BRIDGE TECHNICIAN Office Visit [facility] Ophthalmology [address] [facility] 6th [place] [address] Suzy Glynn MD PhD S/p [...] me/ Assessment & Plan (11/02/2023 2:08 PM CROWN AND BRIDGE TECHNICIAN): 2d f/u C&S Bact: Strep disgalactiae (sensitive [...] resolution) Assessment & Plan (10/31/2023 9:37 AM CROWN AND BRIDGE TECHNICIAN): Resolved pain on Moxi q1 overnight (saw [...] eye. 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 Benavidez Assessment & Plan (09/16/2021 5:10 PM CROWN AND BRIDGE TECHNICIAN): Today 09/16/21 VA OD 20/100 and OS [...] (HVF) OU status post (s/p) repeat diode ADMISSIONS SUPERVISOR right eye (right eye (OD)) 08/2020 Assessment:Pseudoexfoliation [...] Silverman Assessment & Plan (09/14/2023 1:07 PM CROWN AND BRIDGE TECHNICIAN): Meeting ADLs Monitor Assessment & Plan (06/23/2023 [...] 11/13/2018 Overview (04/08/2022): DSEK/TSSIOL OD 09/26/18 Diode ADMISSIONS SUPERVISOR right eye (OD) x 2 (04/2020 and [...] concerns Assessment & Plan (10/21/2022 2:49 PM CROWN AND BRIDGE TECHNICIAN): OHTN OD - s/p Ahmed Os - [...] to pseudoexfoliation and prior surgeries repeat diode ADMISSIONS SUPERVISOR right eye (right eye (OD)) 08/2020 IOP [...] classes OS only and FML Qdaily. [facility] in 03/2020 vs 12/2018, but limited [...] Qdaily. Improved with addition of Rocklatan [facility] in 03/2020 vs 12/2018, but limited reliability Continue dorzolamide and brimonidine/timolol (Combigan) BID right eye (OD), latanoprost QHS right eye, Rocklatan qHS right eye Doing well Follow 4 weeks Assessment & Plan (10/22/2020 8:59 PM CROWN AND BRIDGE TECHNICIAN): IOP today 19/15 on 4 classes OS only and FML Qdaily. [facility] in 03/2020 vs 12/2018, but limited [...] PRN Assessment & Plan (09/02/2020 10:12 AM CROWN AND BRIDGE TECHNICIAN): 3 week follow-up repeat diode ADMISSIONS SUPERVISOR right eye (OD). No significant pain or [...] leave Assessment & Plan (08/12/2020 10:22 AM CROWN AND BRIDGE TECHNICIAN): 1 week follow-up repeat diode ADMISSIONS SUPERVISOR right eye (OD). No significant pain or [...] check Assessment & Plan (08/04/2020 3:33 PM CROWN AND BRIDGE TECHNICIAN): Patient here for diode cyclophotocoagulation of the right eye (OD). Denies significant changes to vision. IOP today 26 on max drops since adding dorzolamide and latanoprost back to eye, which is above our goal. Discussed risks, benefits, and alternatives to procedure and patient wishes to proceed (consent signed separately). Proceed with diode ADMISSIONS SUPERVISOR right eye (OD) today Tolerated procedure well Continue present management on all glaucoma drops Start Pred Forte QID and atropine TID PRN in procedure eye Plan for follow-up in 1 week for post-procedure check Assessment & Plan (07/16/2020 4:20 PM CROWN AND BRIDGE TECHNICIAN): 6 week follow-up. 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 Unfortunately first diode didn't control IOP long-term. Discussed options including repeat diode vs tube vs more intensive medication regimen vs oral DAVID. Patient wishes to try max drops and tentatively scheduling repeat diode ADMISSIONS SUPERVISOR Continue present management on: Brimonidine/timolol (Combigan) BID right eye (OD) FML Qdaily right eye (OD) (chronic) Add: Dorzolamide BID right eye (OD) Latanoprost QHS right eye (OD) Plan for follow-up on 08/[facility] at [facility] for IOP check. If IOP remains elevated, will do repeat diode ADMISSIONS SUPERVISOR right eye (OD) Assessment & Plan (06/04/2020 2:47 PM CDT): 4 weeks status post (s/p) diode ADMISSIONS SUPERVISOR right eye (OD). No pain or discomfort. [...] 8:49 AM CDT): 1 week follow-up diode ADMISSIONS SUPERVISOR right eye (OD). No pain or discomfort [...] proceed (consent signed separately). Proceed with diode ADMISSIONS SUPERVISOR right eye (OD) today Tolerated procedure well [...] surgical intervention Could also consider light diode ADMISSIONS SUPERVISOR Will discuss with Dr. Benavidez and cornea team. Will call this week to discuss options with patient For now, continue present management on brimonidine/timolol (Combigan), dorzolamide, and latanoprost right eye (OD) Assessment & Plan (03/20/2020 10:25 AM CDT): IOP 37 OD on 3 agents today Start dorzolamide BID OD Recommend evaluation w/ glaucoma within next few weeks Assessment & Plan (07/30/2019 9:39 AM CROWN AND BRIDGE TECHNICIAN): IOP OD 16 by applanation Today and [...] tomorrow. Assessment & Plan (10/30/2023 11:35 AM CROWN AND BRIDGE TECHNICIAN): -presents today for same day add on; [...] today Assessment & Plan (09/14/2023 1:36 PM CROWN AND BRIDGE TECHNICIAN): OD -20/200 [facility] -pain likely related to [...] ADLs) Assessment & Plan (10/21/2022 12:18 PM CROWN AND BRIDGE TECHNICIAN): Confocal 03/2904/08/22 today OD [id number] [...] me Assessment & Plan (07/30/2019 9:48 AM CROWN AND BRIDGE TECHNICIAN): Stable, MRx today 20/60 OD Plan: MRx [...] controlled Assessment & Plan (11/13/2018 3:33 PM CROWN AND BRIDGE TECHNICIAN): Postop 1.5mo s/p DSEK/TSSIOL OD (09/26/18) for [...] OD Assessment & Plan (10/30/2018 3:47 PM CROWN AND BRIDGE TECHNICIAN): Postop mo 1 s/p DSEK/TSSIOL OD (09/26/18) 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 ([facility]) - doing well: DSEK graft attached [...] 08/16/2018 Assessment & Plan (08/16/2018 2:52 PM CROWN AND BRIDGE TECHNICIAN): Corneal edema right eye On pred once [...] on file Legal Sex Female 2:28 AM CROWN AND BRIDGE TECHNICIAN Gender Identity Not on file Sexual Orientation [...] on file Medical Devices Implanted Type Area Steam Heating Installer Device Identifier Shelf Expiration Date Model / Serial / Lot [employer] Tutoplast Iopatch 1x.6cm Dehydrate Processed Allograft Graft Soft [id number] - [id number] - [id number] Implanted:Qty : 1 on 02/10/2022 by Deisi Silverman MD at [facility] Graft Right: Eye [employer] 08/10/2026 [id number] / [id number] / [id number] Daniel Surgical [id number].240 Slant 7mm 12.5mm 1 Piece Uv Absorbent Eyelet Posterior Chamber 5 - [id number] - [id number] Implanted:Qty : 1 on 09/26/2018 by Aram Benavidez MD at [facility] Lens Right: Eye [employer] [id number] 02/08/2021 CZ70BD.2 40 / [id number] / 0 Cornea-Dsek Implanted:Qty : 1 on 09/26/2018 by Aram Benavidez MD at [facility] Other - see comments Right: Cornea [employer] 10/08/2018 / [id number] / [id number] Description:Cornea [employer] Ahmed Glaucoma Valve Flexible Plate .635mm .305mm 10x9.6mm 25mm Fp8 - [id number] - [id number] Implanted:Qty : 1 on 02/10/2022 by Deisi Silverman MD at [facility] Medicine Other - see comments Right: Eye [employer] [id number] 07/04/2023 THERESA8 / [id number] / [id number] Description:AHMED GLAUCOMA V ALVE Spinal Cord Stimulator Spinal Cord Stimulator Back Insurance MEDICARE SOLUTIONS MEDICARE [facility] MEDICARE SOLUTIONS MEDICARE SOLUTIONS Care Teams Graphic Manager Relationship Specialty Start Date End Date Bravo Bowen MD [address] [place] [address] PCP - General Internal Medicine 01/21/21
--- OUTSIDE RECORDS SUMMARY | 2024-10-24 15:44 | XMS_ITS | Clinical Summary ---
Author Organization [facility] Address [address] [place] [address] Care Team Providers Care Public Records Officer Name Role Phone Bravo Bowen MD Primary Care Provider [phone] Allergies Active Allergy Reactions Criticality Noted Date [...] me/ Assessment & Plan (11/02/2023 2:08 PM CHEMICAL COMPOUNDER): 2d f/u C&S Bact: Strep disgalactiae (sensitive [...] resolution) Assessment & Plan (10/31/2023 9:37 AM CHEMICAL COMPOUNDER): Resolved pain on Moxi q1 overnight (saw [...] eye. 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 Benavidez Assessment & Plan (09/16/2021 5:10 PM CHEMICAL COMPOUNDER): Today 09/16/21 VA OD 20/100 and OS [...] (HVF) OU status post (s/p) repeat diode OSD CLERK right eye (right eye (OD)) 08/2020 Assessment:Pseudoexfoliation [...] Silverman Assessment & Plan (09/14/2023 1:07 PM CHEMICAL COMPOUNDER): Meeting ADLs Monitor Assessment & Plan (06/23/2023 [...] 11/13/2018 Overview (04/08/2022): DSEK/TSSIOL OD 09/26/18 Diode OSD CLERK right eye (OD) x 2 (04/2020 and [...] concerns Assessment & Plan (10/21/2022 2:49 PM CHEMICAL COMPOUNDER): OHTN OD - s/p Ahmed Os - [...] to pseudoexfoliation and prior surgeries repeat diode OSD CLERK right eye (right eye (OD)) 08/2020 IOP [...] 5 classes OS only and FML Qdaily. [facility] in 03/2020 vs 12/2018, but limited reliability [...] FML Qdaily. Improved with addition of Rocklatan [facility] in 03/2020 vs 12/2018, but limited reliability Continue dorzolamide and brimonidine/timolol (Combigan) BID right eye (OD), latanoprost QHS right eye, Rocklatan qHS right eye Doing well Follow 4 weeks Assessment & Plan (10/22/2020 8:59 PM CHEMICAL COMPOUNDER): IOP today 19/15 on 4 classes OS only and FML Qdaily. [facility] in 03/2020 vs 12/2018, but limited reliability HVF: [facility] OD, wnl OS Discussed r/b/a, including PO [...] PRN Assessment & Plan (09/02/2020 10:12 AM CHEMICAL COMPOUNDER): 3 week follow-up repeat diode OSD CLERK right eye (OD). No significant pain or [...] in 6-8 weeks for IOP check in [facility] on a . This patient was originally allowed to the fellow's schedule as an urgent add-on from Dr. Benavidez. As I will be graduating in March, discussed transitioning her to long-term glaucoma care. Will have her come back in [facility] to meet Dr. Silverman who may be able to follow her after I leave Assessment & Plan (08/12/2020 10:22 AM CHEMICAL COMPOUNDER): 1 week follow-up repeat diode OSD CLERK right eye (OD). No significant pain or [...] check Assessment & Plan (08/04/2020 3:33 PM CHEMICAL COMPOUNDER): Patient here for diode cyclophotocoagulation of the right eye (OD). Denies significant changes to vision. IOP today 26 on max drops since adding dorzolamide and latanoprost back to eye, which is above our goal. Discussed risks, benefits, and alternatives to procedure and patient wishes to proceed (consent signed separately). Proceed with diode OSD CLERK right eye (OD) today Tolerated procedure well Continue present management on all glaucoma drops Start Pred Forte QID and atropine TID PRN in procedure eye Plan for follow-up in 1 week for post-procedure check Assessment & Plan (07/16/2020 4:20 PM CHEMICAL COMPOUNDER): 6 week follow-up. 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 Unfortunately first diode didn't control IOP long-term. Discussed options including repeat diode vs tube vs more intensive medication regimen vs oral DAVID. Patient wishes to try max drops and tentatively scheduling repeat diode OSD CLERK Continue present management on: Brimonidine/timolol (Combigan) BID right eye (OD) FML Qdaily right eye (OD) (chronic) Add: Dorzolamide BID right eye (OD) Latanoprost QHS right eye (OD) Plan for follow-up on 08/04 at [facility] for IOP check. If IOP remains elevated, will do repeat diode OSD CLERK right eye (OD) Assessment & Plan (06/04/2020 2:47 PM CDT): 4 weeks status post (s/p) diode OSD CLERK right eye (OD). No pain or discomfort. [...] 8:49 AM CDT): 1 week follow-up diode OSD CLERK right eye (OD). No pain or discomfort [...] proceed (consent signed separately). Proceed with diode OSD CLERK right eye (OD) today Tolerated procedure well [...] surgical intervention Could also consider light diode OSD CLERK Will discuss with Dr. Benavidez and cornea team. Will call this week to discuss options with patient For now, continue present management on brimonidine/timolol (Combigan), dorzolamide, and latanoprost right eye (OD) Assessment & Plan (03/20/2020 10:25 AM CDT): IOP 37 OD on 3 agents today Start dorzolamide BID OD Recommend evaluation w/ glaucoma within next few weeks Assessment & Plan (07/30/2019 9:39 AM CHEMICAL COMPOUNDER): IOP OD 16 by applanation Today and [...] tomorrow. 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 ([facility]) - doing well: DSEK graft attached [...] 08/16/2018 Assessment & Plan (08/16/2018 2:52 PM CHEMICAL COMPOUNDER): Corneal edema right eye On pred once [...] Department Care Team Description 10/09/2024 10:15 AM CHEMICAL COMPOUNDER Office Visit [facility] Ophthalmology [address] [facility] [address] [place] [address] Suzy Glynn MD PhD S/p DSEK/TSSIOL OD [...] on file Legal Sex Female 2:28 AM CHEMICAL COMPOUNDER Gender Identity Not on file Sexual Orientation [...] history exists Medical Devices Implanted Type Area Exploration Driller Device Identifier Shelf Expiration Date Model / Serial / Lot [employer] Tutoplast Iopatch 1x.6cm Dehydrate Processed Allograft Graft Soft 69479 - [id number] - [id number] Implanted:Qty : 1 on 02/10/2022 by Deisi Silverman MD at [facility] Graft Right: Eye [employer] 08/10/2026 [id number] / [id number] / [id number] Daniel Surgical Cz70bd.240 Slant 7mm 12.5mm 1 Piece Uv Absorbent Eyelet Posterior Chamber 5 - [id number] - [id number] Implanted:Qty : 1 on 09/26/2018 by Aram Benavidez MD at [facility] Lens Right: Eye [employer] [id number] 02/08/2021 CZ70BD.2 40 / [id number] / 0 Cornea-Dsek Implanted:Qty : 1 on 09/26/2018 by Aram Benavidez MD at [facility] Medicine Other - see comments Right: Cornea [employer] 10/08/2018 / [id number] / [id number] Description:Cornea [employer] Ahmed Glaucoma Valve Flexible Plate .635mm .305mm 10x9.6mm 25mm Fp8 - [id number] - [id number] Implanted:Qty : 1 on 02/10/2022 by Deisi Silverman MD at [facility] Medicine Other - see comments Right: Eye [employer] [id number] 07/04/2023 [facility] / [id number] / [id number] Description:AHMED GLAUCOMA V ALVE Spinal Cord Stimulator Spinal Cord Stimulator Back Insurance MEDICARE [employer] [facility] MEDICARE Address: [facility] [address] [place] [address] MEDICARE [facility] MEDICARE SOLUTIONS MEDICARE [employer] [facility] MEDICARE Address: [address] [address] [place] [address] Care Teams Public Records Officer Relationship Specialty Start Date End Date Bravo Bowen MD [address] [place] [address] PCP - General Internal Medicine 01/21/21
[2024-10-24 16:17] LABS: Anion Gap 6 mmol/L (4-12); Blood Urea Nitrogen 7 mg/dL (7-18); Calcium 9.1 mg/dL (8.5-10.1); Carbon Dioxide 31 mmol/L (21-32); Chloride 96 mmol/L (98-108); Estimated Glomerular Filt Rate 48; Glucose 102 mg/dL (70-99); NT Pro B Type Natriuretic Pept 2790 pg/mL (0-450); Osmolality Calculated 274 mOsm/kg (285-295); Potassium 4.7 mmol/L (3.5-5.1); Sodium 133 mmol/L (136-145)
== END 2024-10-24 15:36 | disposition home or self-care (01) ==
LOC: CHSLAB 15:38
PROVIDERS: PCP Internal Medicine; Visit Provider Internal Medicine
DX: R06.02 Shortness of breath (principal)
CPT/HCPCS: 36415; 80048; 83880

== ENCOUNTER 2024-10-31 11:22 | Outpatient (CLI) | payer MEDICARE, SELFPAY ==
[2024-10-31 11:38] LABS: Basophils Absolute Auto 0.02 K/mm3 (0.00-0.10); Basophils Percent Auto 0.2 % (0.0-1.0); Eosinophils Absolute Auto 0.03 K/mm3 (0.02-0.50); Eosinophils Percent Auto 0.3 % (1.0-6.0); Hemoglobin 15.4 g/dL (11.7-13.8); Immature Granulocyte Absolute 0.02 K/mm3 (0.00-0.00); Immature Granulocyte Percent A 0.2 % (0.0-0.0); Lymphocytes Absolute Auto 2.08 K/mm3 (1.10-4.50); Lymphocytes Percent Auto 22.5 % (18.0-42.0); Mean Corpuscular HGB Conc 32.8 g/dL (32-36); Mean Corpuscular Hemoglobin 30.5 pg (27.0-31.0); Mean Corpuscular Volume 93.1 fL (78.0-102.0); Mean Platelet Volume 8.5 fl (9.2-11.8); Monocytes Percent Auto 10.8 % (2.0-11.0); Neutrophils Absolute Auto 6.08 K/mm3 (1.70-7.20); Platelet Count Result 383 K/mm3 (150-420); Red Blood Count 5.05 M/mm3 (4.20-5.40); Red Cell Distribution Width 12.8 % (11.6-14.4); White Blood Count 9.2 K/mm3 (4.8-10.8)
--- OUTSIDE RECORDS SUMMARY | 2024-10-31 11:48 | XMS_ITS | Clinical Summary ---
Author Organization [facility] Address [facility] [address] [place] [address] Care Team Providers Care Cocktail Lounge Manager Name Role Phone Unavailable Primary Care Provider [...] Comments Blood Pressure 130/80 10/13/2015 1:18 PM RN NICU Pulse 92 10/13/2015 1:18 PM RN NICU Temperature - - Respiratory Rate - - Oxygen Saturation - - Inhaled Oxygen Concentration - - Weight 70.3 kg (155 lb) 10/13/2015 1:18 PM RN NICU Height 170.2 cm (5' 7 ) 10/13/2015 1:18 PM RN NICU Body Mass Index 24.28 10/13/2015 1:18 PM RN NICU Plan of Treatment Health Maintenance Due Date [...]
--- OUTSIDE RECORDS SUMMARY | 2024-10-31 11:48 | XMS_ITS | Referral Summary ---
Author Organization [facility] Address [address] [place] [address] Care Team Providers Care Technical Report Writer Name Role Phone Bravo Bowen MD Primary Care Provider [phone] Encounters Date Type Department Care Team Description 10/09/2024 10:15 AM BICYCLE ASSEMBLER Office Visit [facility] Ophthalmology [address] [place] [address] Suzy Glynn MD PhD S/p [...] me/ Assessment & Plan (11/02/2023 2:08 PM BICYCLE ASSEMBLER): 2d f/u C&S Bact: Strep disgalactiae (sensitive [...] resolution) Assessment & Plan (10/31/2023 9:37 AM BICYCLE ASSEMBLER): Resolved pain on Moxi q1 overnight (saw [...] eye. 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 Benavidez Assessment & Plan (09/16/2021 5:10 PM BICYCLE ASSEMBLER): Today 09/16/21 VA OD 20/100 and OS [...] (HVF) OU status post (s/p) repeat diode FAST FOOD CREW LEAD right eye (right eye (OD)) 08/2020 Assessment:Pseudoexfoliation [...] Silverman Assessment & Plan (09/14/2023 1:07 PM BICYCLE ASSEMBLER): Meeting ADLs Monitor Assessment & Plan (06/23/2023 [...] 11/13/2018 Overview (04/08/2022): DSEK/TSSIOL OD 09/26/18 Diode FAST FOOD CREW LEAD right eye (OD) x 2 (04/2020 and [...] concerns Assessment & Plan (10/21/2022 2:49 PM BICYCLE ASSEMBLER): OHTN OD - s/p Ahmed Os - [...] to pseudoexfoliation and prior surgeries repeat diode FAST FOOD CREW LEAD right eye (right eye (OD)) 08/2020 IOP [...] classes OS only and FML Qdaily. [facility] in 03/2020 vs 12/2018, but limited [...] Qdaily. Improved with addition of Rocklatan [facility] in 03/2020 vs 12/2018, but limited reliability Continue dorzolamide and brimonidine/timolol (Combigan) BID right eye (OD), latanoprost QHS right eye, Rocklatan qHS right eye Doing well Follow 4 weeks Assessment & Plan (10/22/2020 8:59 PM BICYCLE ASSEMBLER): IOP today 19/15 on 4 classes OS only and FML Qdaily. [facility] in 03/2020 vs 12/2018, but limited [...] PRN Assessment & Plan (09/02/2020 10:12 AM BICYCLE ASSEMBLER): 3 week follow-up repeat diode FAST FOOD CREW LEAD right eye (OD). No significant pain or [...] leave Assessment & Plan (08/12/2020 10:22 AM BICYCLE ASSEMBLER): 1 week follow-up repeat diode FAST FOOD CREW LEAD right eye (OD). No significant pain or [...] check Assessment & Plan (08/04/2020 3:33 PM BICYCLE ASSEMBLER): Patient here for diode cyclophotocoagulation of the right eye (OD). Denies significant changes to vision. IOP today 26 on max drops since adding dorzolamide and latanoprost back to eye, which is above our goal. Discussed risks, benefits, and alternatives to procedure and patient wishes to proceed (consent signed separately). Proceed with diode FAST FOOD CREW LEAD right eye (OD) today Tolerated procedure well Continue present management on all glaucoma drops Start Pred Forte QID and atropine TID PRN in procedure eye Plan for follow-up in 1 week for post-procedure check Assessment & Plan (07/16/2020 4:20 PM BICYCLE ASSEMBLER): 6 week follow-up. 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 Unfortunately first diode didn't control IOP long-term. Discussed options including repeat diode vs tube vs more intensive medication regimen vs oral DAVID. Patient wishes to try max drops and tentatively scheduling repeat diode FAST FOOD CREW LEAD Continue present management on: Brimonidine/timolol (Combigan) BID right eye (OD) FML Qdaily right eye (OD) (chronic) Add: Dorzolamide BID right eye (OD) Latanoprost QHS right eye (OD) Plan for follow-up on 08/04 at [facility] for IOP check. If IOP remains elevated, will do repeat diode FAST FOOD CREW LEAD right eye (OD) Assessment & Plan (06/04/2020 2:47 PM CDT): 4 weeks status post (s/p) diode FAST FOOD CREW LEAD right eye (OD). No pain or discomfort. [...] 8:49 AM CDT): 1 week follow-up diode FAST FOOD CREW LEAD right eye (OD). No pain or discomfort [...] proceed (consent signed separately). Proceed with diode FAST FOOD CREW LEAD right eye (OD) today Tolerated procedure well [...] surgical intervention Could also consider light diode FAST FOOD CREW LEAD Will discuss with Dr. Benavidez and cornea team. Will call this week to discuss options with patient For now, continue present management on brimonidine/timolol (Combigan), dorzolamide, and latanoprost right eye (OD) Assessment & Plan (03/20/2020 10:25 AM CDT): IOP 37 OD on 3 agents today Start dorzolamide BID OD Recommend evaluation w/ glaucoma within next few weeks Assessment & Plan (07/30/2019 9:39 AM BICYCLE ASSEMBLER): IOP OD 16 by applanation Today and [...] tomorrow. Assessment & Plan (10/30/2023 11:35 AM BICYCLE ASSEMBLER): -presents today for same day add on; [...] today Assessment & Plan (09/14/2023 1:36 PM BICYCLE ASSEMBLER): OD -20/200 [facility] -pain likely related to [...] ADLs) Assessment & Plan (10/21/2022 12:18 PM BICYCLE ASSEMBLER): Confocal 03/2904/08/22 today OD [id number] [...] me Assessment & Plan (07/30/2019 9:48 AM BICYCLE ASSEMBLER): Stable, MRx today 20/60 OD Plan: MRx [...] controlled Assessment & Plan (11/13/2018 3:33 PM BICYCLE ASSEMBLER): Postop 1.5mo s/p DSEK/TSSIOL OD (09/26/18) for [...] OD Assessment & Plan (10/30/2018 3:47 PM BICYCLE ASSEMBLER): Postop mo 1 s/p DSEK/TSSIOL OD (09/26/18) 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 ([facility]) - doing well: DSEK graft attached centrally [...] 08/16/2018 Assessment & Plan (08/16/2018 2:52 PM BICYCLE ASSEMBLER): Corneal edema right eye On pred once [...] on file Legal Sex Female 2:28 AM BICYCLE ASSEMBLER Gender Identity Not on file Sexual Orientation [...] on file Medical Devices Implanted Type Area Compensation Expert Device Identifier Shelf Expiration Date Model / Serial / Lot ID [employer] Tutoplast Iopatch 1x.6cm Dehydrate Processed Allograft Graft Soft 53882 - [id number] - [id number] Implanted:Qty : 1 on 02/10/2022 by Deisi Silverman MD at [facility] Graft Right: Eye Purple [employer] 08/10/2026 [id number] / [id number] / [id number] Daniel Surgical [id number].240 Slant 7mm 12.5mm 1 Piece Uv Absorbent Eyelet Posterior Chamber 5 - [id number] - [id number] Implanted:Qty : 1 on 09/26/2018 by Aram Benavidez MD at [facility] Lens Right: Eye [employer] [id number] 02/08/2021 CZ70BD.2 40 / [id number] / 0 Cornea-Dsek Implanted:Qty : 1 on 09/26/2018 by Aram Benavidez MD at [facility] Other - see comments Right: Cornea [employer] 10/08/2018 / [id number] / [id number] Description:Cornea [employer] Ahmed Glaucoma Valve Flexible Plate .635mm .305mm 10x9.6mm 25mm Fp8 - [id number] - [id number] Implanted:Qty : 1 on 02/10/2022 by Deisi Silverman MD at [facility] Medicine Other - see comments Right: Eye [employer] [id number] 07/04/2023 THERESA8 / [id number] / [id number] Description:AHMED GLAUCOMA V ALVE Spinal Cord Stimulator Spinal Cord Stimulator Back Insurance MEDICARE SOLUTIONS MEDICARE [facility] MEDICARE SOLUTIONS MEDICARE SOLUTIONS [facility] MEDICARE Address: [address] [address] [place] [address] Care Teams Technical Report Writer Relationship Specialty Start Date End Date Bravo Bowen MD [address] [place] [address] PCP - General Internal Medicine 01/21/21
--- OUTSIDE RECORDS SUMMARY | 2024-10-31 11:48 | XMS_ITS | Clinical Summary ---
Author Organization [facility] Address [address] [place] [address] Care Team Providers Care Generator Assembler Name Role Phone Bravo Bowen MD Primary Care Provider [phone] Allergies Active Allergy Reactions Criticality Noted Date [...] infiltrate Does not appear dendritic No gtt macile w/ instillation Most cw abrasion(pt does wipe across eye w/ tissue) Hold moxi/LTX Start LU oint OD qid (original strep sens to LU) Cont combigan OD bid RTC 2days w/ me/ Assessment & Plan (11/02/2023 2:08 PM SAS PROGRAMMER REMOTE): 2d f/u C&S Bact: Strep disgalactiae (sensitive [...] resolution) Assessment & Plan (10/31/2023 9:37 AM SAS PROGRAMMER REMOTE): Resolved pain on Moxi q1 overnight (saw [...] eye. 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 Benavidez Assessment & Plan (09/16/2021 5:10 PM SAS PROGRAMMER REMOTE): Today 09/16/21 VA OD 20/100 and OS [...] (HVF) OU status post (s/p) repeat diode TECHNICAL SERVICE REP right eye (right eye (OD)) 08/2020 Assessment:Pseudoexfoliation [...] Silverman Assessment & Plan (09/14/2023 1:07 PM SAS PROGRAMMER REMOTE): Meeting ADLs Monitor Assessment & Plan (06/23/2023 [...] 11/13/2018 Overview (04/08/2022): DSEK/TSSIOL OD 09/26/18 Diode TECHNICAL SERVICE REP right eye (OD) x 2 (04/2020 and [...] concerns Assessment & Plan (10/21/2022 2:49 PM SAS PROGRAMMER REMOTE): OHTN OD - s/p Ahmed Os - [...] to pseudoexfoliation and prior surgeries repeat diode TECHNICAL SERVICE REP right eye (right eye (OD)) 08/2020 IOP [...] 5 classes OS only and FML Qdaily. [facility] in 03/2020 vs 12/2018, but limited reliability [...] FML Qdaily. Improved with addition of Rocklatan [facility] in 03/2020 vs 12/2018, but limited reliability Continue dorzolamide and brimonidine/timolol (Combigan) BID right eye (OD), latanoprost QHS right eye, Rocklatan qHS right eye Doing well Follow 4 weeks Assessment & Plan (10/22/2020 8:59 PM SAS PROGRAMMER REMOTE): IOP today 19/15 on 4 classes OS only and FML Qdaily. [facility] in 03/2020 vs 12/2018, but limited reliability HVF: [facility] OD, wnl OS Discussed r/b/a, including [...] PRN Assessment & Plan (09/02/2020 10:12 AM SAS PROGRAMMER REMOTE): 3 week follow-up repeat diode TECHNICAL SERVICE REP right eye (OD). No significant pain or [...] in 6-8 weeks for IOP check in [facility] on a . This patient was originally allowed to the fellow's schedule as an urgent add-on from Dr. Benavidez. As I will be graduating in March, discussed transitioning her to long-term glaucoma care. Will have her come back in [facility] to meet Dr. Silverman who may be able to follow her after I leave Assessment & Plan (08/12/2020 10:22 AM SAS PROGRAMMER REMOTE): 1 week follow-up repeat diode TECHNICAL SERVICE REP right eye (OD). No significant pain or [...] check Assessment & Plan (08/04/2020 3:33 PM SAS PROGRAMMER REMOTE): Patient here for diode cyclophotocoagulation of the right eye (OD). Denies significant changes to vision. IOP today 26 on max drops since adding dorzolamide and latanoprost back to eye, which is above our goal. Discussed risks, benefits, and alternatives to procedure and patient wishes to proceed (consent signed separately). Proceed with diode TECHNICAL SERVICE REP right eye (OD) today Tolerated procedure well Continue present management on all glaucoma drops Start Pred Forte QID and atropine TID PRN in procedure eye Plan for follow-up in 1 week for post-procedure check Assessment & Plan (07/16/2020 4:20 PM SAS PROGRAMMER REMOTE): 6 week follow-up. 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 Unfortunately first diode didn't control IOP long-term. Discussed options including repeat diode vs tube vs more intensive medication regimen vs oral DAVID. Patient wishes to try max drops and tentatively scheduling repeat diode TECHNICAL SERVICE REP Continue present management on: Brimonidine/timolol (Combigan) BID right eye (OD) FML Qdaily right eye (OD) (chronic) Add: Dorzolamide BID right eye (OD) Latanoprost QHS right eye (OD) Plan for follow-up on 08/04 at [facility] for IOP check. If IOP remains elevated, will do repeat diode TECHNICAL SERVICE REP right eye (OD) Assessment & Plan (06/04/2020 2:47 PM CDT): 4 weeks status post (s/p) diode TECHNICAL SERVICE REP right eye (OD). No pain or discomfort. [...] 8:49 AM CDT): 1 week follow-up diode TECHNICAL SERVICE REP right eye (OD). No pain or discomfort [...] proceed (consent signed separately). Proceed with diode TECHNICAL SERVICE REP right eye (OD) today Tolerated procedure well [...] surgical intervention Could also consider light diode TECHNICAL SERVICE REP Will discuss with Dr. Benavidez and cornea team. Will call this week to discuss options with patient For now, continue present management on brimonidine/timolol (Combigan), dorzolamide, and latanoprost right eye (OD) Assessment & Plan (03/20/2020 10:25 AM CDT): IOP 37 OD on 3 agents today Start dorzolamide BID OD Recommend evaluation w/ glaucoma within next few weeks Assessment & Plan (07/30/2019 9:39 AM SAS PROGRAMMER REMOTE): IOP OD 16 by applanation Today and [...] tomorrow. 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 ([facility]) - doing well: DSEK graft [...] 08/16/2018 Assessment & Plan (08/16/2018 2:52 PM SAS PROGRAMMER REMOTE): Corneal edema right eye On pred once [...] Department Care Team Description 10/09/2024 10:15 AM SAS PROGRAMMER REMOTE Office Visit [facility] Ophthalmology [address]th [place] [address] Suzy Glynn MD PhD S/p DSEK/TSSIOL OD [...] on file Legal Sex Female 2:28 AM SAS PROGRAMMER REMOTE Gender Identity Not on file Sexual Orientation [...] history exists Medical Devices Implanted Type Area Chemist Device Identifier Shelf Expiration Date Model / Serial / Lot [employer] Tutoplast Iopatch 1x.6cm Dehydrate Processed Allograft Graft Soft 65326 - [id number] - [id number] Implanted:Qty : 1 on 02/10/2022 by Deisi Silverman MD at [facility] Graft Right: Eye [employer] 08/10/2026 [id number] / [id number] / [id number] Daniel [employer] Cz70bd.240 Slant 7mm 12.5mm 1 Piece Uv Absorbent Eyelet Posterior Chamber 5 - [id number] - [id number] Implanted:Qty : 1 on 09/26/2018 by Aram Benavidez MD at [facility] Lens Right: Eye [employer] [id number] 02/08/2021 CZ70BD.2 40 / [id number] / 0 Cornea-Dsek Implanted:Qty : 1 on 09/26/2018 by Aram Benavidez MD at [facility] Medicine Other - see comments Right: Cornea [employer] 10/08/2018 / [id number] / [id number] Description:Cornea [employer] Ahmed Glaucoma Valve Flexible Plate .635mm .305mm 10x9.6mm 25mm Fp8 - [id number] - [id number] Implanted:Qty : 1 on 02/10/2022 by Deisi Silverman MD at [facility] Medicine Other - see comments Right: Eye [employer] [id number] 07/04/2023 [facility] / [id number] / [id number] Description:AHMED GLAUCOMA V ALVE Spinal Cord Stimulator Spinal Cord Stimulator Back Insurance [place] [address] MEDICARE [facility] Address: [address] [address] [place] [address] [facility] [place] [address] MEDICARE [employer] Care Teams Generator Assembler Relationship Specialty Start Date End Date Bravo Bowen MD [address] [place] [address] PCP - General Internal Medicine 01/21/21
[2024-10-31 12:00] LABS: Anion Gap 7 mmol/L (4-12); Blood Urea Nitrogen 22 mg/dL (7-18); Calcium 9.5 mg/dL (8.5-10.1); Carbon Dioxide 30 mmol/L (21-32); Chloride 97 mmol/L (98-108); Estimated Glomerular Filt Rate 59; Glucose 95 mg/dL (70-99); Osmolality Calculated 281 mOsm/kg (285-295); Potassium 4.6 mmol/L (3.5-5.1); Sodium 134 mmol/L (136-145)
[2024-10-31 14:55] LABS: NT Pro B Type Natriuretic Pept 2124 pg/mL (0-450)
== END 2024-10-31 11:23 | disposition home or self-care (01) ==
LOC: CHSLAB 11:23
PROVIDERS: PCP Internal Medicine; Visit Provider Internal Medicine
DX: I50.9 Heart failure, unspecified (principal)
CPT/HCPCS: 36415; 80048; 83880; 85025

== ENCOUNTER 2024-11-12 11:40 | Outpatient (CLI) | payer MEDICARE, SELFPAY ==
--- NOTE | 2024-11-12 11:56 | ECHO_ITS ---
Patient Info Name: Jenn Tirado Age: 89 years : 1935 Gender: Female Ht: 66 in Wt: 140 lbs BSA: 1.72 m2 HR: 78 bpm BP: 116 / 93 mmHg Heart Rhythm: Atrial Fibrillation Technical Quality: Fair Exam Date: 11/12/2024 12:18 PM Exam Location: Echo Lab Patient Status: Outpatient Admit Date: 11/12/2024 Staff Ordering Physician: Bravo Bowen MD Certified Energy Manager: Eliz Franco RDCS Attending Provider: Bravo Bowen MD Referring Physician: Andrés ZHU; Exam Type: CA echo doppler color flow Study Info Indications - CHF Complete two-dimensional, color flow and Doppler transthoracic echocardiogram is performed. History/Risk Factors Hypertension: Yes Dyslipidemia: No Congenital Heart Disease (CHD): No Peripheral Arterial Disease (PAD): No Myocardial Infarction (GA): No Chronic Lung Disease: No Obesity: No Renal Disease: No Congestive Heart Failure (CHF): Hx CHF Cardiomyopathy/LV Systolic Dysfunction: No Diabetes Mellitus: No COPD: On Meds Tobacco Use: Never Cerebrovascular Disease: No DVT Treatment: Apixaban Deep Vein Thrombosis (DVT): None Dialysis: None Frailty Scale (CSHA): 3: Managing Well Cardiac Arrest: No Summary 1. Complete two-dimensional, color flow and Doppler transthoracic echocardiogram is performed. 2. Left ventricular chamber dimension is normal. 3. Ventricular septum is moderately sigmoid shaped. No resting LVOT obstruction. 4. Left ventricular systolic function is normal, estimated at 60-65%. 5. The left ventricular diastolic function is abnormal. 6. E/e' 12 is mildly elevated. 7. Atrial fibrillation. 8. Left atrial chamber dimension is severely enlarged. 9. Right atrial chamber dimension is severely enlarged. 10. There is mild aortic valve sclerosis. 11. There is trace aortic valve regurgitation. 12. The mitral valve has moderately calcified annulus. 13. There is mild mitral valve regurgitation. 14. There is moderate to severe tricuspid valve regurgitation. 15. No pulmonary hypertension, estimated pulmonary arterial systolic pressure is 33 mmHg. 16. There is trace pulmonic regurgitation. 17. There is trivial pericardial effusion. Left Ventricle E/e' 12 is mildly elevated. Ventricular septum is moderately sigmoid shaped. No resting LVOT obstruction. Atrial fibrillation. Left ventricular chamber dimension is normal. Left ventricular systolic function is normal, estimated at 60-65%. The left ventricular diastolic function is abnormal. Right Ventricle Right ventricular systolic function is normal and with normal TAPSE 2.1 cm. Right ventricular chamber dimension is normal. Left Atria Left atrial chamber dimension is severely enlarged. Right Atria Right atrial chamber dimension is severely enlarged. Aortic Valve The aortic valve is trileaflet. There is mild aortic valve sclerosis. There is no aortic valve stenosis. There is trace aortic valve regurgitation. Pulmonic Valve There is trace pulmonic regurgitation. Mitral Valve The mitral valve has moderately calcified annulus. There is no mitral valve stenosis. There is mild mitral valve regurgitation. Tricuspid Valve There is moderate to severe tricuspid valve regurgitation. No pulmonary hypertension, estimated pulmonary arterial systolic pressure is 33 mmHg. Pericardium/Pleural There is trivial pericardial effusion. Inferior Vena Cava Normal inferior vena cava with >50% collapse upon inspiration consistent with normal right atrial pressure, 5 mmHg. Aorta The aortic root size at the sinus of Valsalva is normal. Left Ventricular Outflow Tract Name Value Normal LVOT 2D LVOT Diameter 2.0 cm LVOT Doppler LVOT Peak Velocity 81 cm/s LVOT Peak Gradient 3 mmHg LVOT Mean Gradient 2 mmHg LVOT VTI 17 cm LVOT VTI/AV VTI Ratio 1.1 LVOT Stroke Volume 54 ml Pulmonic Valve Name Value Normal RVOT Doppler RVOT Peak Gradient 1 mmHg PV Doppler PV Peak Velocity 72 cm/s PV Peak Gradient 2 mmHg Mitral Valve Name Value Normal MV Doppler MV Decel Teton 550 cm/s2 MV PHT 47 ms MV Area (PHT) 4.7 cm2 4.0-5.0 MV Diastolic Function MV E Peak Velocity 89 cm/s MV A Peak Velocity 2 cm/s MV E/A 39.2 MV Decel Time 161 ms Tricuspid Valve Name Value Normal TV Regurgitation Doppler TR Peak Velocity 266 cm/s TR Peak Gradient 28 mmHg Estimated PAP/RSVP RA Pressure 5 mmHg <=5 PA Systolic Pressure 33 mmHg <36 RV Systolic Pressure 33 mmHg <36 Aorta Name Value Normal Ascending Aorta Ao Root Diameter (MM) 3.1 cm Ao Root Diam Index (MM) 1.8 cm/m2 Ao Sinotub Junction Diameter 3.4 cm 2.3-2.9 Aortic Valve Name Value Normal AV Doppler AV Peak Velocity 111 cm/s AV Peak Gradient 5 mmHg AV Mean Gradient 2 mmHg AV VTI 16 cm AV Area (Cont Eq VTI) 3.3 cm2 >=3.0 AV Area (Cont Eq Bahman) 2.3 cm2 AV V1/V2 Ratio 0.73 AV Regurgitation 2D LVOT Area 3.1 cm2 AV Regurgitation Doppler AR Decel Time 2,598 ms AR Decel Teton 168 cm/s2 AR PHT 753 ms Ventricles Name Value Normal LV Dimensions 2D/MM IVS Diastolic Thickness (2D) 0.9 cm 0.6-1.0 LVID Diastole (2D) 3.9 cm 3.8-5.2 LVIW Diastolic Thickness (2D) 1.0 cm 0.6-0.9 LVID Systole (2D) 2.6 cm 2.2-3.5 LVOT Diameter 2.0 cm LV Mass (2D Cubed) 109.46 g 67.00-162.00 LV Mass Index (2D Cubed) 64 g/m2 43-95 Relative Wall Thickness (2D) 0.51 LV Fractional Shortening/Ejection Fraction 2D/MM LV Fractional Shortening (2D) 34 % 27-45 LV EF (2D Teicholz) 63 % 54-74 LV Diastolic Volume (4C MOD) 51 ml LV EF (4C MOD) 67 % LV Diastolic Volume (2C MOD) 42 ml LV EF (2C MOD) 64 % LV Diastolic Volume (BP MOD) 47 ml 46-106 LV Diastolic Volume Index (BP MOD) 27 ml/m2 29-61 LV Systolic Volume (BP MOD) 16 ml 14-42 LV Systolic Volume Index (BP MOD) 10 ml/m2 8-24 LV EF (BP MOD) 65 % 54-74 LV Diastolic Length (4C) 6.2 cm LV Systolic Length (4C) 5.5 cm LV Stroke Volume (4C MOD) 34 ml Atria Name Value Normal LA Dimensions LA Dimension (MM) 5.0 cm 2.7-3.8 LA Volume (4C A-L) 109 ml LA Volume (BP A-L) 96 ml RA Dimensions RA Area (4C) 22.7 cm2 <=18.0 Report Signatures
[2024-11-12 12:07] LABS: Basophils Absolute Auto 0.04 K/mm3 (0.00-0.10); Basophils Percent Auto 0.7 % (0.0-1.0); Eosinophils Absolute Auto 0.14 K/mm3 (0.02-0.50); Eosinophils Percent Auto 2.5 % (1.0-6.0); Hematocrit 43.3 % (35.0-42.0); Hemoglobin 13.8 g/dL (11.7-13.8); Immature Granulocyte Absolute 0.01 K/mm3 (0.00-0.00); Immature Granulocyte Percent A 0.2 % (0.0-0.0); Lymphocytes Absolute Auto 1.68 K/mm3 (1.10-4.50); Lymphocytes Percent Auto 29.6 % (18.0-42.0); Mean Corpuscular HGB Conc 31.9 g/dL (32-36); Mean Corpuscular Hemoglobin 29.7 pg (27.0-31.0); Mean Corpuscular Volume 93.1 fL (78.0-102.0); Mean Platelet Volume 8.4 fl (9.2-11.8); Monocytes Absolute Auto 0.65 K/mm3 (0.10-0.90); Monocytes Percent Auto 11.5 % (2.0-11.0); Neutrophils Absolute Auto 3.15 K/mm3 (1.70-7.20); Neutrophils Percent Auto 55.5 % (50.0-70.0); Platelet Count Result 343 K/mm3 (150-420); Red Blood Count 4.65 M/mm3 (4.20-5.40); Red Cell Distribution Width 12.7 % (11.6-14.4); White Blood Count 5.7 K/mm3 (4.8-10.8)
[2024-11-12 12:55] LABS: Anion Gap 2 mmol/L (4-12); Blood Urea Nitrogen 14 mg/dL (7-18); Calcium 9.3 mg/dL (8.5-10.1); Carbon Dioxide 30 mmol/L (21-32); Chloride 95 mmol/L (98-108); Estimated Glomerular Filt Rate > 60; Glucose 94 mg/dL (70-99); NT Pro B Type Natriuretic Pept 2350 pg/mL (0-450); Osmolality Calculated 264 mOsm/kg (285-295); Potassium 3.7 mmol/L (3.5-5.1); Sodium 127 mmol/L (136-145)
--- OUTSIDE RECORDS SUMMARY | 2024-11-12 13:36 | XMS_ITS | Clinical Summary ---
Author Organization [facility] Address [facility] [place] [address] Care Team Providers Care Enterprise Integration Architect Name Role Phone Unavailable Primary Care Provider [...] Comments Blood Pressure 130/80 10/13/2015 1:18 PM RELAY ADJUSTER Pulse 92 10/13/2015 1:18 PM RELAY ADJUSTER Temperature - - Respiratory Rate - - Oxygen Saturation - - Inhaled Oxygen Concentration - - Weight 70.3 kg (155 lb) 10/13/2015 1:18 PM RELAY ADJUSTER Height 170.2 cm (5' 7 ) 10/13/2015 1:18 PM RELAY ADJUSTER Body Mass Index 24.28 10/13/2015 1:18 PM RELAY ADJUSTER Plan of Treatment Health Maintenance Due Date [...]
--- OUTSIDE RECORDS SUMMARY | 2024-11-12 13:36 | XMS_ITS | Clinical Summary ---
Author Organization [facility] Address [address] [place] [address] Care Team Providers Care Junior Brand Manager Name Role Phone Bravo Bowen MD Primary Care Provider [phone] Allergies Active Allergy Reactions Criticality Noted Date [...] me/ Assessment & Plan (11/02/2023 2:08 PM FITTING SUPERVISOR): 2d f/u C&S Bact: Strep disgalactiae (sensitive [...] resolution) Assessment & Plan (10/31/2023 9:37 AM FITTING SUPERVISOR): Resolved pain on Moxi q1 overnight (saw [...] eye. 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 [facility] in 03/2020 vs 12/2018, but limited [...] FML Qdaily. Improved with addition of Rocklatan [facility] in 03/2020 vs 12/2018, but limited reliability Continue dorzolamide and brimonidine/timolol (Combigan) BID right eye (OD), latanoprost QHS right eye, Rocklatan qHS right eye Doing well Follow 4 weeks Assessment & Plan (10/22/2020 8:59 PM FITTING SUPERVISOR): IOP today 19/15 on 4 classes OS only and FML Qdaily. [facility] in 03/2020 vs 12/2018, but limited reliability HVF: [facility] OD, wnl OS Discussed r/b/a, including [...] PRN Assessment & Plan (09/02/2020 10:12 AM FITTING SUPERVISOR): 3 week follow-up repeat diode LEATHER CURRIER right eye (OD). No significant pain or [...] in 6-8 weeks for IOP check in [facility] on a . This patient was originally allowed to the fellow's schedule as an urgent add-on from Dr. Benavidez. As I will be graduating in March, discussed transitioning her to long-term glaucoma care. Will have her come back in [facility] to meet Dr. Silverman who may be able to follow her after I leave Assessment & Plan (08/12/2020 10:22 AM FITTING SUPERVISOR): 1 week follow-up repeat diode LEATHER CURRIER right eye (OD). No significant pain or [...] check Assessment & Plan (08/04/2020 3:33 PM FITTING SUPERVISOR): Patient here for diode cyclophotocoagulation of the right eye (OD). Denies significant changes to vision. IOP today 26 on max drops since adding dorzolamide and latanoprost back to eye, which is above our goal. Discussed risks, benefits, and alternatives to procedure and patient wishes to proceed (consent signed separately). Proceed with diode LEATHER CURRIER right eye (OD) today Tolerated procedure well Continue present management on all glaucoma drops Start Pred Forte QID and atropine TID PRN in procedure eye Plan for follow-up in 1 week for post-procedure check Assessment & Plan (07/16/2020 4:20 PM FITTING SUPERVISOR): 6 week follow-up. 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 Unfortunately first diode didn't control IOP long-term. Discussed options including repeat diode vs tube vs more intensive medication regimen vs oral DAVID. Patient wishes to try max drops and tentatively scheduling repeat diode LEATHER CURRIER Continue present management on: Brimonidine/timolol (Combigan) BID right eye (OD) FML Qdaily right eye (OD) (chronic) Add: Dorzolamide BID right eye (OD) Latanoprost QHS right eye (OD) Plan for follow-up on 08/04 at [facility] for IOP check. If IOP remains elevated, will do repeat diode LEATHER CURRIER right eye (OD) Assessment & Plan (06/04/2020 2:47 PM CDT): 4 weeks status post (s/p) diode LEATHER CURRIER right eye (OD). No pain or discomfort. [...] 8:49 AM CDT): 1 week follow-up diode LEATHER CURRIER right eye (OD). No pain or discomfort [...] proceed (consent signed separately). Proceed with diode LEATHER CURRIER right eye (OD) today Tolerated procedure well [...] surgical intervention Could also consider light diode LEATHER CURRIER Will discuss with Dr. Benavidez and cornea team. Will call this week to discuss options with patient For now, continue present management on brimonidine/timolol (Combigan), dorzolamide, and latanoprost right eye (OD) Assessment & Plan (03/20/2020 10:25 AM CDT): IOP 37 OD on 3 agents today Start dorzolamide BID OD Recommend evaluation w/ glaucoma within next few weeks Assessment & Plan (07/30/2019 9:39 AM FITTING SUPERVISOR): IOP OD 16 by applanation Today and [...] tomorrow. 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 ([facility]) - doing well: DSEK graft [...] 08/16/2018 Assessment & Plan (08/16/2018 2:52 PM FITTING SUPERVISOR): Corneal edema right eye On pred once [...] Encounters Date Type Department Care Team Description 11/08/2024 Telephone [facility] Ophthalmology [address] [place] [address] Deisi Silverman MD Prior Auth 10/09/2024 10:15 AM FITTING SUPERVISOR Office Visit [facility] Ophthalmology [address] [facility] [address] [place] [id number] Suzy Glynn MD PhD S/p DSEK/TSSIOL OD [...] on file Legal Sex Female 2:28 AM FITTING SUPERVISOR Gender Identity Not on file Sexual Orientation [...] history exists Medical Devices Implanted Type Area Customer Engineering Specialist Device Identifier Shelf Expiration Date Model / Serial / Lot [employer] Tutoplast Iopatch 1x.6cm Dehydrate Processed Allograft Graft Soft [id number] - [id number] - [id number] Implanted:Qty : 1 on 02/10/2022 by Deisi Silverman MD at [facility] Graft Right: Eye [employer] 08/10/2026 [id number] / [id number] / [id number] [employer] [id number].240 Slant 7mm 12.5mm 1 Piece Uv Absorbent Eyelet Posterior Chamber 5 - [id number] - [id number] Implanted:Qty : 1 on 09/26/2018 by Aram Benavidez MD at [facility] Lens Right: Eye [employer] [id number] 02/08/2021 CZ70BD.2 40 / [id number] / 0 Cornea-Dsek Implanted:Qty : 1 on 09/26/2018 by Aram Benavidez MD at [facility] Other - see comments Right: Cornea [employer] 10/08/2018 / [id number] / [id number] Description:Cornea [employer] Ahmed Glaucoma Valve Flexible Plate .635mm .305mm 10x9.6mm 25mm Fp8 - [id number] - [id number] Implanted:Qty : 1 on 02/10/2022 by Deisi Silverman MD at [facility] Other - see comments Right: Eye [employer] [id number] 07/04/2023 8 / [id number] / [id number] Description:AHMED GLAUCOMA V ALVE Spinal Cord Stimulator Spinal Cord Stimulator Back Insurance MEDICARE [facility] MEDICARE Address: [facility] [address] [place] [address] MEDICARE [facility] MEDICARE [employer] MEDICARE SOL[employer]IONS Care Teams Junior Brand Manager Relationship Specialty Start Date End Date Bravo Bowen MD [address] [id number] PCP - General Internal Medicine 01/21/21
--- OUTSIDE RECORDS SUMMARY | 2024-11-12 13:36 | XMS_ITS | Encounter Summary ---
Author Organization [facility] Address [address] [place] [address] Phone Care Team Providers Care Processing Technician Name Role Phone Bravo Bowen MD Primary Care Provider [phone] Reason for Visit * Reason Onset Date Comments Prior Auth 11/08/2024 Encounter Details Date Type Department Care Team (Late st Contact Info) Description 11/08/2024 Telephone [facility] Ophthalmology [address] [place], [place] [id number] Deisi Silverman MD [address] [place], [place] [phone] Prior Auth Social History Tobacco Use Types Packs/Day Years [...] on file Legal Sex Female 2:28 AM [employer] Gender Identity Not on file Sexual Orientation Not on file documented as of this encounter Miscellaneous Notes * Telephone Encounter - Nuris Mcnamara COA - 11/08/2024 2:19 PM [employer] PA for Lotemax gel was submitted through CoverMyMeds to [facility] and approved. Your PA request has been approved. Additional information will be provided in the approval communication. (Message 1143) Effective Date: 11/07/2024 Authorization Expiration Date: 11/07/2025 SBS [facility] * Telephone Encounter - Jyoti Almanza - 11/08/2024 12:24 PM CST Medication Refill Medication(s): Lotemax Preferred Pharmacy: [facility] [id number] Patient's Callback #: [phone] Additional Comments: PT called to check status on PA from msg below [facility]ICE [facility] * Telephone Encounter - Clinton Wilburn - 11/08/2024 11:54 AM CST Pharmacy called and stated that the pt's Lotemax gel needs a PA. Pharmacy # [phone] Insurance # [phone] [facility] documented in this encounter Plan of Treatment Not on file documented as of this encounter Visit Diagnoses Not on filedocumented in this encounter Care Teams Processing Technician Relationship Specialty Start Date End Date Bravo Bowen MD [address] [place] [address] PCP - General Internal Medicine 01/21/21 documented as of this encounter
--- OUTSIDE RECORDS SUMMARY | 2024-11-12 13:36 | XMS_ITS | Referral Summary ---
Author Organization [facility] Address [address] [place] [address] Care Team Providers Care Hris Developer Name Role Phone Bravo Bowen MD Primary Care Provider [phone] Encounters Date Type Department Care Team Description 11/08/2024 Telephone [facility] Ophthalmology [address] [place] [address] Deisi Silverman MD Prior Auth 10/09/2024 10:15 AM GASKET MAKER Office Visit [facility] Ophthalmology [address] [facility] [address] [place] [address] Suzy Glynn MD PhD S/p [...] q3h while awake and lotemax qid. Consider muona when epi defect healed - 11/12 epi [...] me/ Assessment & Plan (11/02/2023 2:08 PM GASKET MAKER): 2d f/u C&S Bact: Strep disgalactiae (sensitive [...] resolution) Assessment & Plan (10/31/2023 9:37 AM GASKET MAKER): Resolved pain on Moxi q1 overnight (saw [...] eye. 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 [facility] in 03/2020 vs 12/2018, but limited [...] FML Qdaily. Improved with addition of Rocklatan [facility] in 03/2020 vs 12/2018, but limited reliability Continue dorzolamide and brimonidine/timolol (Combigan) BID right eye (OD), latanoprost QHS right eye, Rocklatan qHS right eye Doing well Follow 4 weeks Assessment & Plan (10/22/2020 8:59 PM GASKET MAKER): IOP today 19/15 on 4 classes OS only and FML Qdaily. [facility] in 03/2020 vs 12/2018, but limited reliability HVF: [facility] OD, wnl OS Discussed r/b/a, including PO [...] PRN Assessment & Plan (09/02/2020 10:12 AM GASKET MAKER): 3 week follow-up repeat diode TEMPLATE LAYOUT WORKER right eye (OD). No significant pain or [...] in 6-8 weeks for IOP check in [facility] on a . This patient was originally allowed to the fellow's schedule as an urgent add-on from Dr. Benavidez. As I will be graduating in March, discussed transitioning her to long-term glaucoma care. Will have her come back in [facility] to meet Dr. Silverman who may be able to follow her after I leave Assessment & Plan (08/12/2020 10:22 AM GASKET MAKER): 1 week follow-up repeat diode TEMPLATE LAYOUT WORKER right eye (OD). No significant pain or [...] check Assessment & Plan (08/04/2020 3:33 PM GASKET MAKER): Patient here for diode cyclophotocoagulation of the right eye (OD). Denies significant changes to vision. IOP today 26 on max drops since adding dorzolamide and latanoprost back to eye, which is above our goal. Discussed risks, benefits, and alternatives to procedure and patient wishes to proceed (consent signed separately). Proceed with diode TEMPLATE LAYOUT WORKER right eye (OD) today Tolerated procedure well Continue present management on all glaucoma drops Start Pred Forte QID and atropine TID PRN in procedure eye Plan for follow-up in 1 week for post-procedure check Assessment & Plan (07/16/2020 4:20 PM GASKET MAKER): 6 week follow-up. 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 Unfortunately first diode didn't control IOP long-term. Discussed options including repeat diode vs tube vs more intensive medication regimen vs oral DAVID. Patient wishes to try max drops and tentatively scheduling repeat diode TEMPLATE LAYOUT WORKER Continue present management on: Brimonidine/timolol (Combigan) BID right eye (OD) FML Qdaily right eye (OD) (chronic) Add: Dorzolamide BID right eye (OD) Latanoprost QHS right eye (OD) Plan for follow-up on 08/[address] [facility] for IOP check. If IOP remains elevated, will do repeat diode TEMPLATE LAYOUT WORKER right eye (OD) Assessment & Plan (06/04/2020 2:47 PM CDT): 4 weeks status post (s/p) diode TEMPLATE LAYOUT WORKER right eye (OD). No pain or discomfort. [...] 8:49 AM CDT): 1 week follow-up diode TEMPLATE LAYOUT WORKER right eye (OD). No pain or discomfort [...] proceed (consent signed separately). Proceed with diode TEMPLATE LAYOUT WORKER right eye (OD) today Tolerated procedure well [...] surgical intervention Could also consider light diode TEMPLATE LAYOUT WORKER Will discuss with Dr. Benavidez and cornea team. Will call this week to discuss options with patient For now, continue present management on brimonidine/timolol (Combigan), dorzolamide, and latanoprost right eye (OD) Assessment & Plan (03/20/2020 10:25 AM CDT): IOP 37 OD on 3 agents today Start dorzolamide BID OD Recommend evaluation w/ glaucoma within next few weeks Assessment & Plan (07/30/2019 9:39 AM GASKET MAKER): IOP OD 16 by applanation Today and [...] tomorrow. 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 ([facility]) - doing well: DSEK graft attached centrally [...] 08/16/2018 Assessment & Plan (08/16/2018 2:52 PM GASKET MAKER): Corneal edema right eye On pred once [...] on file Legal Sex Female 2:28 AM GASKET MAKER Gender Identity Not on file Sexual Orientation [...] on file Medical Devices Implanted Type Area Machinist Bench Device Identifier Shelf Expiration Date Model / Serial / Lot [employer] Tutoplast Iopatch 1x.6cm Dehydrate Processed Allograft Graft Soft 05751 - [id number] - [id number] Implanted:Qty : 1 on 02/10/2022 by Deisi Silverman MD at [facility] Graft Right: Eye [employer] 08/10/2026 [id number] / [id number] / [id number] Daniel Surgical Cz70bd.240 Slant 7mm 12.5mm 1 Piece Uv Absorbent Eyelet Posterior Chamber 5 - [id number] - [id number] Implanted:Qty : 1 on 09/26/2018 by Aram Benavidez MD at [facility] Lens Right: Eye [employer] [id number] 02/08/2021 CZ70BD.2 40 / [id number] / 0 Cornea-Dsek Implanted:Qty : 1 on 09/26/2018 by Aram Benavidez MD at [facility] Other - see comments Right: Cornea [employer] 10/08/2018 / [id number] / [id number] Description:Cornea [employer] Ahmed Glaucoma Valve Flexible Plate .635mm .305mm 10x9.6mm 25mm Fp8 - [id number] - [id number] Implanted:Qty : 1 on 02/10/2022 by Deisi Silverman MD at [facility] Other - see comments Right: Eye [employer] [id number] 07/04/2023 MIROSLAVA / [id number] / [id number] Description:AHMED GLAUCOMA V ALVE Spinal Cord Stimulator Spinal Cord Stimulator Back Insurance MEDICARE SOLUTIONS MEDICARE [facility] MEDICARE [employer] MEDICARE SOLUTIONS Care Teams Hris Developer Relationship Specialty Start Date End Date Bravo Bowen MD [address] [place] [address] PCP - General Internal Medicine 01/21/21
== END 2024-11-12 11:41 | disposition home or self-care (01) ==
LOC: CHSIMG 11:43
PROVIDERS: PCP Internal Medicine; Visit Provider Internal Medicine
DX: I50.9 Heart failure, unspecified (principal); I08.3 Combined rheumatic disorders of mitral, aortic and tricuspid valves
CPT/HCPCS: 36415; 80048; 83880; 85025; 93306

== ENCOUNTER 2024-11-25 08:16 | Outpatient (CLI) | payer MEDICARE, SELFPAY ==
[2024-11-25 08:28] LABS: Hematocrit 43.3 % (35.0-42.0); Hemoglobin 13.9 g/dL (11.7-13.8); Mean Corpuscular HGB Conc 32.1 g/dL (32-36); Mean Corpuscular Hemoglobin 29.9 pg (27.0-31.0); Mean Corpuscular Volume 93.1 fL (78.0-102.0); Mean Platelet Volume 8.3 fl (9.2-11.8); Platelet Count Result 345 K/mm3 (150-420); Red Blood Count 4.65 M/mm3 (4.20-5.40); Red Cell Distribution Width 13.2 % (11.6-14.4); White Blood Count 5.8 K/mm3 (4.8-10.8)
--- OUTSIDE RECORDS SUMMARY | 2024-11-25 08:38 | XMS_ITS | Clinical Summary ---
Author Organization [facility] Address [facility] [address] [place] [address] Care Team Providers Care Fighter Pilot Name Role Phone Unavailable Primary Care Provider [...] Comments Blood Pressure 130/80 10/13/2015 1:18 PM VICE PRESIDENT OF SALES Pulse 92 10/13/2015 1:18 PM VICE PRESIDENT OF SALES Temperature - - Respiratory Rate - - Oxygen Saturation - - Inhaled Oxygen Concentration - - Weight 70.3 kg (155 lb) 10/13/2015 1:18 PM VICE PRESIDENT OF SALES Height 170.2 cm (5' 7 ) 10/13/2015 1:18 PM VICE PRESIDENT OF SALES Body Mass Index 24.28 10/13/2015 1:18 PM VICE PRESIDENT OF SALES Plan of Treatment Health Maintenance Due Date [...]
--- OUTSIDE RECORDS SUMMARY | 2024-11-25 08:38 | XMS_ITS | Referral Summary ---
Author Organization [facility] Address [address] [place] [address] Care Team Providers Care Furnace Firer Name Role Phone Bravo Bowen MD Primary Care Provider [phone] Encounters Date Type Department Care Team Description 11/08/2024 Telephone [facility] Ophthalmology [address] [place] [address] Deisi Silverman MD Prior Auth 10/09/2024 10:15 AM FIRE FIGHTER AIRPORT Office Visit [facility] Ophthalmology [address] [facility] 6[address] [place] [address] Suzy Glynn MD PhD S/p [...] me/ Assessment & Plan (11/02/2023 2:08 PM FIRE FIGHTER AIRPORT): 2d f/u C&S Bact: Strep disgalactiae (sensitive [...] resolution) Assessment & Plan (10/31/2023 9:37 AM FIRE FIGHTER AIRPORT): Resolved pain on Moxi q1 overnight (saw [...] eye. 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 Benavidez Assessment & Plan (09/16/2021 5:10 PM FIRE FIGHTER AIRPORT): Today 09/16/21 VA OD 20/100 and OS [...] (HVF) OU status post (s/p) repeat diode NURSING SUPPORT WORKER right eye (right eye (OD)) 08/2020 [...] Silverman Assessment & Plan (09/14/2023 1:07 PM FIRE FIGHTER AIRPORT): Meeting ADLs Monitor Assessment & Plan (06/23/2023 [...] 11/13/2018 Overview (04/08/2022): DSEK/TSSIOL OD 09/26/18 Diode NURSING SUPPORT WORKER right eye (OD) x 2 (04/2020 [...] concerns Assessment & Plan (10/21/2022 2:49 PM FIRE FIGHTER AIRPORT): OHTN OD - s/p Ahmed Os - [...] to pseudoexfoliation and prior surgeries repeat diode NURSING SUPPORT WORKER right eye (right eye (OD)) 08/2020 [...] 5 classes OS only and FML Qdaily. [facility] in 03/2020 vs 12/2018, but limited reliability [...] FML Qdaily. Improved with addition of Rocklatan [facility] in 03/2020 vs 12/2018, but limited reliability Continue dorzolamide and brimonidine/timolol (Combigan) BID right eye (OD), latanoprost QHS right eye, Rocklatan qHS right eye Doing well Follow 4 weeks Assessment & Plan (10/22/2020 8:59 PM FIRE FIGHTER AIRPORT): IOP today 19/15 on 4 classes OS only and FML Qdaily. [facility] in 03/2020 vs 12/2018, but limited reliability HVF: [facility] OD, wnl OS Discussed r/b/a, including [...] PRN Assessment & Plan (09/02/2020 10:12 AM FIRE FIGHTER AIRPORT): 3 week follow-up repeat diode NURSING SUPPORT WORKER right eye (OD). No significant pain [...] in 6-8 weeks for IOP check in [facility] on a . This patient was originally allowed to the fellow's schedule as an urgent add-on from Dr. Benavidez. As I will be graduating in March, discussed transitioning her to long-term glaucoma care. Will have her come back in [facility] to meet Dr. Silverman who may be able to follow her after I leave Assessment & Plan (08/12/2020 10:22 AM FIRE FIGHTER AIRPORT): 1 week follow-up repeat diode NURSING SUPPORT WORKER right eye (OD). No significant pain [...] check Assessment & Plan (08/04/2020 3:33 PM FIRE FIGHTER AIRPORT): Patient here for diode cyclophotocoagulation of the right eye (OD). Denies significant changes to vision. IOP today 26 on max drops since adding dorzolamide and latanoprost back to eye, which is above our goal. Discussed risks, benefits, and alternatives to procedure and patient wishes to proceed (consent signed separately). Proceed with diode NURSING SUPPORT WORKER right eye (OD) today Tolerated procedure well Continue present management on all glaucoma drops Start Pred Forte QID and atropine TID PRN in procedure eye Plan for follow-up in 1 week for post-procedure check Assessment & Plan (07/16/2020 4:20 PM FIRE FIGHTER AIRPORT): 6 week follow-up. 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 Unfortunately first diode didn't control IOP long-term. Discussed options including repeat diode vs tube vs more intensive medication regimen vs oral DAVID. Patient wishes to try max drops and tentatively scheduling repeat diode NURSING SUPPORT WORKER Continue present management on: Brimonidine/timolol (Combigan) BID right eye (OD) FML Qdaily right eye (OD) (chronic) Add: Dorzolamide BID right eye (OD) Latanoprost QHS right eye (OD) Plan for follow-up on 08/04 at [facility] for IOP check. If IOP remains elevated, will do repeat diode NURSING SUPPORT WORKER right eye (OD) Assessment & Plan (06/04/2020 2:47 PM CDT): 4 weeks status post (s/p) diode NURSING SUPPORT WORKER right eye (OD). No pain or [...] 8:49 AM CDT): 1 week follow-up diode NURSING SUPPORT WORKER right eye (OD). No pain or [...] proceed (consent signed separately). Proceed with diode NURSING SUPPORT WORKER right eye (OD) today Tolerated procedure [...] surgical intervention Could also consider light diode NURSING SUPPORT WORKER Will discuss with Dr. Benavidez and [...] weeks Assessment & Plan (07/30/2019 9:39 AM FIRE FIGHTER AIRPORT): IOP OD 16 by applanation Today and [...] tomorrow. 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 ([facility]) - doing well: DSEK graft [...] 08/16/2018 Assessment & Plan (08/16/2018 2:52 PM FIRE FIGHTER AIRPORT): Corneal edema right eye On pred once [...] on file Legal Sex Female 2:28 AM FIRE FIGHTER AIRPORT Gender Identity Not on file Sexual Orientation [...] on file Medical Devices Implanted Type Area Flotation Operator Device Identifier Shelf Expiration Date Model / Serial / Lot [employer] Tutoplast Iopatch 1x.6cm Dehydrate Processed Allograft Graft Soft 42776 - [id number] - [id number] Implanted:Qty : 1 on 02/10/2022 by Deisi Silverman MD at [facility] Graft Right: Eye [employer] 08/10/2026 [id number] / [id number] / [id number] [employer] Cz70bd.240 Slant 7mm 12.5mm 1 Piece Uv Absorbent Eyelet Posterior Chamber 5 - [id number] - [id number] Implanted:Qty : 1 on 09/26/2018 by Aram Benavidez MD at [facility] Lens Right: Eye [employer] [id number] 02/08/2021 CZ70BD.2 40 / [id number] / 0 Cornea-Dsek Implanted:Qty : 1 on 09/26/2018 by Aram Benavidez MD at [facility] Other - see comments Right: Cornea [employer] 10/08/2018 / [id number] / [id number] Description:Cornea [employer] Ahmed Glaucoma Valve Flexible Plate .635mm .305mm 10x9.6mm 25mm Fp8 - [id number] - [id number] Implanted:Qty : 1 on 02/10/2022 by Deisi Silverman MD at [facility] Other - see comments Right: Eye [employer] [id number] 07/04/2023 MIROSLAVA / [id number] / [id number] Description:AHMED GLAUCOMA V ALVE Spinal Cord Stimulator Spinal Cord Stimulator Back Insurance MEDICARE SOLUTIONS MEDICARE [facility] MEDICARE [employer] MEDICARE SOLUTIONS Care Teams Furnace Firer Relationship Specialty Start Date End Date Bravo Bowen MD [address] [place] [address] PCP - General Internal Medicine 01/21/21
--- OUTSIDE RECORDS SUMMARY | 2024-11-25 08:38 | XMS_ITS | Clinical Summary ---
Author Organization [facility] Address [address] [place] [address] Care Team Providers Care Surgical Forceps Fabricator Name Role Phone Bravo Bowen MD Primary Care Provider [phone] Allergies Active Allergy Reactions Criticality Noted Date [...] me/ Assessment & Plan (11/02/2023 2:08 PM FIRER HELPER): 2d f/u C&S Bact: Strep disgalactiae (sensitive [...] resolution) Assessment & Plan (10/31/2023 9:37 AM FIRER HELPER): Resolved pain on Moxi q1 overnight (saw [...] eye. 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 Benavidez Assessment & Plan (09/16/2021 5:10 PM FIRER HELPER): Today 09/16/21 [facility] OD 20/100 and OS [...] (HVF) OU status post (s/p) repeat diode BAG HANGER right eye (right eye (OD)) 08/2020 Assessment:Pseudoexfoliation [...] Silverman Assessment & Plan (09/14/2023 1:07 PM FIRER HELPER): Meeting ADLs Monitor Assessment & Plan (06/23/2023 [...] 11/13/2018 Overview (04/08/2022): DSEK/TSSIOL OD 09/26/18 Diode BAG HANGER right eye (OD) x 2 (04/2020 and [...] concerns Assessment & Plan (10/21/2022 2:49 PM FIRER HELPER): OHTN OD - s/p Ahmed Os - [...] to pseudoexfoliation and prior surgeries repeat diode BAG HANGER right eye (right eye (OD)) 08/2020 IOP [...] classes OS only and FML Qdaily. [facility] in 03/2020 vs 12/2018, but limited [...] Qdaily. Improved with addition of Rocklatan [facility] in 03/2020 vs 12/2018, but limited reliability Continue dorzolamide and brimonidine/timolol (Combigan) BID right eye (OD), latanoprost QHS right eye, Rocklatan qHS right eye Doing well Follow 4 weeks Assessment & Plan (10/22/2020 8:59 PM FIRER HELPER): IOP today 19/15 on 4 classes OS only and FML Qdaily. [facility] in 03/2020 vs 12/2018, but limited reliability HVF: [facility] OD, wnl OS Discussed r/b/a, including PO [...] PRN Assessment & Plan (09/02/2020 10:12 AM FIRER HELPER): 3 week follow-up repeat diode BAG HANGER right eye (OD). No significant pain or [...] in 6-8 weeks for IOP check in [facility] on a . This patient was originally allowed to the fellow's schedule as an urgent add-on from Dr. Benavidez. As I will be graduating in March, discussed transitioning her to long-term glaucoma care. Will have her come back in [facility] to meet Dr. Silverman who may be able to follow her after I leave Assessment & Plan (08/12/2020 10:22 AM FIRER HELPER): 1 week follow-up repeat diode BAG HANGER right eye (OD). No significant pain or [...] check Assessment & Plan (08/04/2020 3:33 PM FIRER HELPER): Patient here for diode cyclophotocoagulation of the right eye (OD). Denies significant changes to vision. IOP today 26 on max drops since adding dorzolamide and latanoprost back to eye, which is above our goal. Discussed risks, benefits, and alternatives to procedure and patient wishes to proceed (consent signed separately). Proceed with diode BAG HANGER right eye (OD) today Tolerated procedure well Continue present management on all glaucoma drops Start Pred Forte QID and atropine TID PRN in procedure eye Plan for follow-up in 1 week for post-procedure check Assessment & Plan (07/16/2020 4:20 PM FIRER HELPER): 6 week follow-up. 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 Unfortunately first diode didn't control IOP long-term. Discussed options including repeat diode vs tube vs more intensive medication regimen vs oral DAVID. Patient wishes to try max drops and tentatively scheduling repeat diode BAG HANGER Continue present management on: Brimonidine/timolol (Combigan) BID right eye (OD) FML Qdaily right eye (OD) (chronic) Add: Dorzolamide BID right eye (OD) Latanoprost QHS right eye (OD) Plan for follow-up on 08/04 at [facility] for IOP check. If IOP remains elevated, will do repeat diode BAG HANGER right eye (OD) Assessment & Plan (06/04/2020 2:47 PM CDT): 4 weeks status post (s/p) diode BAG HANGER right eye (OD). No pain or discomfort. [...] 8:49 AM CDT): 1 week follow-up diode BAG HANGER right eye (OD). No pain or discomfort [...] proceed (consent signed separately). Proceed with diode BAG HANGER right eye (OD) today Tolerated procedure well [...] surgical intervention Could also consider light diode BAG HANGER Will discuss with Dr. Benavidez and cornea team. Will call this week to discuss options with patient For now, continue present management on brimonidine/timolol (Combigan), dorzolamide, and latanoprost right eye (OD) Assessment & Plan (03/20/2020 10:25 AM CDT): IOP 37 OD on 3 agents today Start dorzolamide BID OD Recommend evaluation w/ glaucoma within next few weeks Assessment & Plan (07/30/2019 9:39 AM FIRER HELPER): IOP OD 16 by applanation Today and [...] tomorrow. 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 ([facility]) - doing well: DSEK graft attached [...] 08/16/2018 Assessment & Plan (08/16/2018 2:52 PM FIRER HELPER): Corneal edema right eye On pred once [...] Type Department Care Team Description 11/08/2024 Telephone [facility] [address] [place] [address] Deisi Silverman MD Prior Auth 10/09/2024 10:15 AM FIRER HELPER Office Visit [facility] [address] [facility] [address] [place] [id number] Suzy Glynn MD PhD S/p DSEK/TSSIOL OD [...] on file Legal Sex Female 2:28 AM FIRER HELPER Gender Identity Not on file Sexual Orientation [...] history exists Medical Devices Implanted Type Area Yard Manager Device Identifier Shelf Expiration Date Model / Serial / Lot [employer] Tutoplast Iopatch 1x.6cm Dehydrate Processed Allograft Graft Soft 72616 - [id number] - [id number] Implanted:Qty : 1 on 02/10/2022 by Deisi Silverman MD at [facility] Graft Right: Eye [employer] 08/10/2026 [id number] / [id number] / [id number] Daniel Surgical Cz70bd.240 Slant 7mm 12.5mm 1 Piece Uv Absorbent Eyelet Posterior Chamber 5 - [id number] - [id number] Implanted:Qty : 1 on 09/26/2018 by Aram Benavidez MD at [facility] Lens Right: Eye [employer] [id number] 02/08/2021 CZ70BD.2 40 / [id number] / 0 Cornea-Dsek Implanted:Qty : 1 on 09/26/2018 by Aram Benavidez MD at [facility] Other - see comments Right: Cornea [employer] 10/08/2018 / [id number] / [id number] Description:Cornea [employer] Ahmed Glaucoma Valve Flexible Plate .635mm .305mm 10x9.6mm 25mm Fp8 - [id number] - [id number] Implanted:Qty : 1 on 02/10/2022 by Deisi Silverman MD at [facility] Other - see comments Right: Eye [employer] [id number] 07/04/2023 8 / [id number] / [id number] Description:AHMED GLAUCOMA V ALVE Spinal Cord Stimulator Spinal Cord Stimulator Back Insurance MEDICARE SOL[employer]IONS MEDICARE [facility] MEDICARE SOLUTIONS MEDICARE SOLUTIONS Care Teams Surgical Forceps Fabricator Relationship Specialty Start Date End Date Bravo Bowen MD [address] [id number] PCP - General Internal Medicine 01/21/21
[2024-11-25 08:44] LABS: Add Urine Microscopic? YES; Appearance Urine Sl Cloudy (Clear); Bilirubin Urine Negative (Negative); Blood Urine 1+ (Negative); Color Urine Light Yellow (Yellow); Glucose Urine UA Negative (Negative); Ketones Urine Negative (Negative); Leukocyte Esterase Ur 3+ LEU/UL (Negative); Nitrate Urine Positive (Negative); Protein Urine Negative (Negative); Urobilinogen Urine 0.2 mg/dL (0.2-1.0); pH Urine 6.5 (5.0-8.0)
[2024-11-25 08:48] LABS: RBC Urine 0-2 /hpf (0-2); Squamous Epithelial Cell Urine Few /hpf (Few)
[2024-11-25 08:49] LABS: Bacteria Urine 4+ /hpf
[2024-11-25 09:31] LABS: Alanine Aminotransferase 17 U/L (14-59); Albumin Level 3.3 g/dL (3.4-5.0); Alkaline Phosphatase 114 U/L (46-116); Anion Gap 7 mmol/L (4-12); Aspartate Amino Transferase 17 U/L (15-37); Bilirubin,Total 0.5 mg/dL (0.00-1.00); Blood Urea Nitrogen 16 mg/dL (7-18); Calcium 9.6 mg/dL (8.5-10.1); Carbon Dioxide 28 mmol/L (21-32); Chloride 101 mmol/L (98-108); Cholesterol 193 mg/dL (0-200); Estimated Glomerular Filt Rate > 60; Free T4 Free Thyroxine 1.01 ng/dL (0.76-1.46); Glucose 95 mg/dL (70-99); HDL Direct 57 mg/dL (40-60); LDL Cholesterol Calculated 119 mg/dL (<130); NT Pro B Type Natriuretic Pept 2120 pg/mL (0-450); Osmolality Calculated 283 mOsm/kg (285-295); Potassium 4.5 mmol/L (3.5-5.1); Sodium 136 mmol/L (136-145); Thyroid Stimulating Hormone 3.38 uIU/mL (0.36-3.74); Total Protein 7.6 g/dL (6.4-8.2); Triglycerides 86 mg/dL (0-150)
[2024-11-25 09:38] LABS: Vitamin B12 > 2000 pg/mL (193-986)
[2024-11-25 09:39] LABS: Free T3 2.54 pg/mL (2.18-3.98)
== END 2024-11-25 08:17 | disposition home or self-care (01) ==
LOC: CHSLAB 08:19
PROVIDERS: PCP Internal Medicine; Visit Provider Internal Medicine
DX: I48.21 Permanent atrial fibrillation (principal); G62.9 Polyneuropathy, unspecified; E53.8 Deficiency of other specified B group vitamins; I50.32 Chronic diastolic (congestive) heart failure; N13.70 Vesicoureteral-reflux, unspecified
CPT/HCPCS: 36415; 80053; 80061; 81001; 82607; 83880; 84439; 84443; 84481; 85027; 87086; 87088

== ENCOUNTER 2025-02-20 08:14 | Outpatient (CLI) | payer MEDICARE, SELFPAY ==
--- NOTE | ~2025-02-20 | US_ITS ---
Renal-Bladder ultrasound Clinical History: Urge incontinence Technique: Real-time sonographic imaging of the kidneys and urinary bladder was performed. Findings: The right kidney measures 9.5 cm in length and the left kidney measures 10.3 cm. There is n o hydronephrosis or renal calculus identified. Renal cortical echogenicity is within normal limits. N o renal mass lesion is identified. The urinary bladder is moderately distended at the time of this exam. No intraluminal echoes are iden tified. No abnormal wall thickening is seen. Prevoid volume is 77 mL. No post void residual. Impression: Unremarkable ultrasound of the kidneys and urinary bladder. Reviewed, dictated and finalized at location . Impression: Unremarkable ultrasound of the kidneys and urinary bladder.
--- OUTSIDE RECORDS SUMMARY | 2025-02-20 08:18 | XMS_ITS | Referral Summary ---
Author Organization [facility] Address [address] [place] [address] Care Team Providers Care Rehabilitation Therapy Technician Name Role Phone Bravo Bowen MD Primary Care Provider [phone] Allergies Active Allergy Reactions Criticality Noted Date [...] me/ Assessment & Plan (11/02/2023 2:08 PM GREIGE GOODS MARKER): 2d f/u C&S Bact: Strep disgalactiae (sensitive [...] resolution) Assessment & Plan (10/31/2023 9:37 AM GREIGE GOODS MARKER): Resolved pain on Moxi q1 overnight (saw [...] eye. 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 Benavidez Assessment & Plan (09/16/2021 5:10 PM GREIGE GOODS MARKER): Today 09/16/21 [facility] OD 20/100 and OS [...] (HVF) OU status post (s/p) repeat diode CUSTOMER COMPLAINT SERVICE SUPERVISOR right eye (right eye (OD)) 08/2020 [...] Silverman Assessment & Plan (09/14/2023 1:07 PM GREIGE GOODS MARKER): Meeting ADLs Monitor Assessment & Plan (06/23/2023 [...] 11/13/2018 Overview (04/08/2022): DSEK/TSSIOL OD 09/26/18 Diode CUSTOMER COMPLAINT SERVICE SUPERVISOR right eye (OD) x 2 (04/2020 [...] concerns Assessment & Plan (10/21/2022 2:49 PM GREIGE GOODS MARKER): OHTN OD - s/p Ahmed Os - [...] to pseudoexfoliation and prior surgeries repeat diode CUSTOMER COMPLAINT SERVICE SUPERVISOR right eye (right eye (OD)) 08/2020 [...] 5 classes OS only and FML Qdaily. [facility] in 03/2020 vs 12/2018, but limited [...] FML Qdaily. Improved with addition of Rocklatan [facility] in 03/2020 vs 12/2018, but limited reliability Continue dorzolamide and brimonidine/timolol (Combigan) BID right eye (OD), latanoprost QHS right eye, Rocklatan qHS right eye Doing well Follow 4 weeks Assessment & Plan (10/22/2020 8:59 PM GREIGE GOODS MARKER): IOP today 19/15 on 4 classes OS only and FML Qdaily. [facility] in 03/2020 vs 12/2018, but limited reliability HVF: [facility] OD, wnl OS Discussed r/b/a, including [...] PRN Assessment & Plan (09/02/2020 10:12 AM GREIGE GOODS MARKER): 3 week follow-up repeat diode CUSTOMER COMPLAINT SERVICE SUPERVISOR right eye (OD). No significant pain [...] in 6-8 weeks for IOP check in [facility] on a . This patient was originally allowed to the fellow's schedule as an urgent add-on from Dr. Benavidez. As I will be graduating in March, discussed transitioning her to long-term glaucoma care. Will have her come back in [facility] to meet Dr. Silverman who may be able to follow her after I leave Assessment & Plan (08/12/2020 10:22 AM GREIGE GOODS MARKER): 1 week follow-up repeat diode CUSTOMER COMPLAINT SERVICE SUPERVISOR right eye (OD). No significant pain [...] check Assessment & Plan (08/04/2020 3:33 PM GREIGE GOODS MARKER): Patient here for diode cyclophotocoagulation of the right eye (OD). Denies significant changes to vision. IOP today 26 on max drops since adding dorzolamide and latanoprost back to eye, which is above our goal. Discussed risks, benefits, and alternatives to procedure and patient wishes to proceed (consent signed separately). Proceed with diode CUSTOMER COMPLAINT SERVICE SUPERVISOR right eye (OD) today Tolerated procedure well Continue present management on all glaucoma drops Start Pred Forte QID and atropine TID PRN in procedure eye Plan for follow-up in 1 week for post-procedure check Assessment & Plan (07/16/2020 4:20 PM GREIGE GOODS MARKER): 6 week follow-up. 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 Unfortunately first diode didn't control IOP long-term. Discussed options including repeat diode vs tube vs more intensive medication regimen vs oral DAVID. Patient wishes to try max drops and tentatively scheduling repeat diode CUSTOMER COMPLAINT SERVICE SUPERVISOR Continue present management on: Brimonidine/timolol (Combigan) BID right eye (OD) FML Qdaily right eye (OD) (chronic) Add: Dorzolamide BID right eye (OD) Latanoprost QHS right eye (OD) Plan for follow-up on 08/04 at [facility] for IOP check. If IOP remains elevated, will do repeat diode CUSTOMER COMPLAINT SERVICE SUPERVISOR right eye (OD) Assessment & Plan (06/04/2020 2:47 PM CDT): 4 weeks status post (s/p) diode CUSTOMER COMPLAINT SERVICE SUPERVISOR right eye (OD). No pain or [...] 8:49 AM CDT): 1 week follow-up diode CUSTOMER COMPLAINT SERVICE SUPERVISOR right eye (OD). No pain or [...] proceed (consent signed separately). Proceed with diode CUSTOMER COMPLAINT SERVICE SUPERVISOR right eye (OD) today Tolerated procedure [...] surgical intervention Could also consider light diode CUSTOMER COMPLAINT SERVICE SUPERVISOR Will discuss with Dr. Benavidez and [...] weeks Assessment & Plan (07/30/2019 9:39 AM GREIGE GOODS MARKER): IOP OD 16 by applanation Today and [...] tomorrow. 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 ([facility]) - doing well: DSEK graft attached [...] 08/16/2018 Assessment & Plan (08/16/2018 2:52 PM GREIGE GOODS MARKER): Corneal edema right eye On pred once [...] on file Legal Sex Female 2:28 AM GREIGE GOODS MARKER Gender Identity Not on file Sexual Orientation [...] 10:58 AM CDT Height 167.6 cm (5' 6) 02/10/2022 10:58 AM CDT Body Mass Index 24.21 02/10/2022 10:58 AM CDT Plan of Treatment Not on file Medical Devices Implanted Type Area Minor League Baseball Player Device Identifier Shelf Expiration Date Model / Serial / Lot [employer] Tutoplast Iopatch 1x.6cm Dehydrate Processed Allograft Graft Soft 66760 - [id number] - [id number] Implanted:Qty : 1 on 02/10/2022 by Deisi Silverman MD at [facility] Graft Right: Eye [employer] 08/10/2026 [id number] / [id number] / [id number] [employer] Cz70bd.240 Slant 7mm 12.5mm 1 Piece Uv Absorbent Eyelet Posterior Chamber 5 - [id number] - [id number] Implanted:Qty : 1 on 09/26/2018 by Aram Benavidez MD at [facility] Lens Right: Eye [employer] [id number] 02/08/2021 CZ70BD.2 40 / [id number] / 0 Cornea-Dsek Implanted:Qty : 1 on 09/26/2018 by Aram Benavidez MD at [facility] Other - see comments Right: Cornea [employer] 10/08/2018 / [id number] / [id number] Description:Cornea [employer] Ahmed Glaucoma Valve Flexible Plate .635mm .305mm 10x9.6mm 25mm 8 - [id number] - [id number] Implanted:Qty : 1 on 02/10/2022 by Deisi Silverman MD at [facility] Other - see comments Right: Eye [employer] [id number] 07/04/2023 [facility] / [id number] / [id number] Description:AHMED GLAUCOMA V ALVE Spinal Cord Stimulator Spinal Cord Stimulator Back Insurance [facility] MEDICARE ADVANTAGE MEDICARE [facility] UHC MEDICARE ADVANTAGE [facility] MEDICARE ADVANTAGE Care Teams Rehabilitation Therapy Technician Relationship Specialty Start Date End Date Bravo Bowen MD [address], [place] [phone] PCP - General Internal Medicine 01/21/21
--- OUTSIDE RECORDS SUMMARY | 2025-02-20 08:18 | XMS_ITS | Clinical Summary ---
Author Organization [facility] Address [address] [place] [address] Care Team Providers Care Stock Letterer Name Role Phone Bravo Bowen MD Primary Care Provider [phone] Allergies Active Allergy Reactions Criticality Noted Date [...] me/ Assessment & Plan (11/02/2023 2:08 PM EELER): 2d f/u C&S Bact: Strep disgalactiae (sensitive [...] resolution) Assessment & Plan (10/31/2023 9:37 AM EELER): Resolved pain on Moxi q1 overnight (saw [...] eye. 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 Benavidez Assessment & Plan (09/16/2021 5:10 PM EELER): Today 09/16/21 VA OD 20/100 and OS [...] (HVF) OU status post (s/p) repeat diode GENOMICS SCIENTIST right eye (right eye (OD)) 08/2020 Assessment:Pseudoexfoliation [...] Silverman Assessment & Plan (09/14/2023 1:07 PM EELER): Meeting ADLs Monitor Assessment & Plan (06/23/2023 [...] 11/13/2018 Overview (04/08/2022): DSEK/TSSIOL OD 09/26/18 Diode GENOMICS SCIENTIST right eye (OD) x 2 (04/2020 and [...] concerns Assessment & Plan (10/21/2022 2:49 PM EELER): OHTN OD - s/p Ahmed Os - [...] to pseudoexfoliation and prior surgeries repeat diode GENOMICS SCIENTIST right eye (right eye (OD)) 08/2020 IOP [...] 5 classes OS only and FML Qdaily. [facility] in 03/2020 vs 12/2018, but limited [...] FML Qdaily. Improved with addition of Rocklatan [facility] in 03/2020 vs 12/2018, but limited reliability Continue dorzolamide and brimonidine/timolol (Combigan) BID right eye (OD), latanoprost QHS right eye, Rocklatan qHS right eye Doing well Follow 4 weeks Assessment & Plan (10/22/2020 8:59 PM EELER): IOP today 19/15 on 4 classes OS only and FML Qdaily. [facility] in 03/2020 vs 12/2018, but limited reliability HVF: [facility] OD, wnl OS Discussed r/b/a, including [...] PRN Assessment & Plan (09/02/2020 10:12 AM EELER): 3 week follow-up repeat diode GENOMICS SCIENTIST right eye (OD). No significant pain or [...] leave Assessment & Plan (08/12/2020 10:22 AM EELER): 1 week follow-up repeat diode GENOMICS SCIENTIST right eye (OD). No significant pain or [...] check Assessment & Plan (08/04/2020 3:33 PM EELER): Patient here for diode cyclophotocoagulation of the right eye (OD). Denies significant changes to vision. IOP today 26 on max drops since adding dorzolamide and latanoprost back to eye, which is above our goal. Discussed risks, benefits, and alternatives to procedure and patient wishes to proceed (consent signed separately). Proceed with diode GENOMICS SCIENTIST right eye (OD) today Tolerated procedure well Continue present management on all glaucoma drops Start Pred Forte QID and atropine TID PRN in procedure eye Plan for follow-up in 1 week for post-procedure check Assessment & Plan (07/16/2020 4:20 PM EELER): 6 week follow-up. 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 Unfortunately first diode didn't control IOP long-term. Discussed options including repeat diode vs tube vs more intensive medication regimen vs oral DAVID. Patient wishes to try max drops and tentatively scheduling repeat diode GENOMICS SCIENTIST Continue present management on: Brimonidine/timolol (Combigan) BID right eye (OD) FML Qdaily right eye (OD) (chronic) Add: Dorzolamide BID right eye (OD) Latanoprost QHS right eye (OD) Plan for follow-up on 08/04 at [facility] for IOP check. If IOP remains elevated, will do repeat diode GENOMICS SCIENTIST right eye (OD) Assessment & Plan (06/04/2020 2:47 PM CDT): 4 weeks status post (s/p) diode GENOMICS SCIENTIST right eye (OD). No pain or discomfort. [...] 8:49 AM CDT): 1 week follow-up diode GENOMICS SCIENTIST right eye (OD). No pain or discomfort [...] proceed (consent signed separately). Proceed with diode GENOMICS SCIENTIST right eye (OD) today Tolerated procedure well [...] surgical intervention Could also consider light diode GENOMICS SCIENTIST Will discuss with Dr. Benavidez and cornea team. Will call this week to discuss options with patient For now, continue present management on brimonidine/timolol (Combigan), dorzolamide, and latanoprost right eye (OD) Assessment & Plan (03/20/2020 10:25 AM CDT): IOP 37 OD on 3 agents today Start dorzolamide BID OD Recommend evaluation w/ glaucoma within next few weeks Assessment & Plan (07/30/2019 9:39 AM EELER): IOP OD 16 by applanation Today and [...] tomorrow. 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 Surgical History Surgery Date Site/Laterality Comments VITRECTOMY [...] on file Legal Sex Female 2:28 AM EELER Gender Identity Not on file Sexual Orientation [...] season) 2024 07/02/2021, 11/06/2020, 10/09/2020 Influenza Vaccine (Season Ended) 2025 06/15/2023, 06/21/2022, 06/16/2021, Additional history exists Medical Devices Implanted Type Area Excavation Laborer Device Identifier Shelf Expiration Date Model / Serial / Lot [employer] Tutoplast Iopatch 1x.6cm Dehydrate Processed Allograft Graft Soft [id number] - [id number] - [id number] Implanted:Qty : 1 on 02/10/2022 by Deisi Silverman MD at [facility] Graft Right: Eye [employer] 08/10/2026 [id number] / [id number] / [id number] Daniel Surgical [id number].240 Slant 7mm 12.5mm 1 Piece Uv Absorbent Eyelet Posterior Chamber 5 - [id number] - [id number] Implanted:Qty : 1 on 09/26/2018 by Aram Benavidez MD at [facility] Lens Right: Eye [employer] [id number] 02/08/2021 CZ70BD.2 40 / [id number] / 0 Cornea-Dsek Implanted:Qty : 1 on 09/26/2018 by Aram Benavidez MD at [facility] Other - see comments Right: Cornea [employer] 10/08/2018 / [id number] / [id number] Description:Cornea [employer] Ahmed Glaucoma Valve Flexible Plate .635mm .305mm 10x9.6mm 25mm 8 - [id number] - [id number] Implanted:Qty : 1 on 02/10/2022 by Deisi Silverman MD at [facility] Other - see comments Right: Eye [employer] [id number] 07/04/2023 [facility] / [id number] / [id number] Description:AHMED GLAUCOMA V ALVE Spinal Cord Stimulator Spinal Cord Stimulator Back Insurance [facility] MEDICARE ADVANTAGE MEDICARE [facility] MEDICARE ADVANTAGE [facility] MEDICARE ADVANTAGE Care Teams Stock Letterer Relationship Specialty Start Date End Date Bravo Bowen MD [address] [place] [address] PCP - General Internal Medicine 01/21/21
== END 2025-02-20 08:15 | disposition home or self-care (01) ==
LOC: CHSIMG 08:14
PROVIDERS: PCP Internal Medicine; Visit Provider Internal Medicine
DX: I50.9 Heart failure, unspecified (principal); N39.41 Urge incontinence
CPT/HCPCS: 76770

== ENCOUNTER 2025-08-05 12:00 | Outpatient (CLI) | payer MEDICARE, SELFPAY ==
--- NOTE | ~2025-08-05 | XR_ITS ---
EXAMINATION: XR chest 2V, 08/05/2025 12:00 PRINCIPAL MECHANICAL ENGINEER HISTORY: URI / COVID POSITIVE COMPARISON: No comparisons available. Technique: 2 views obtained. Findings: COPD changes. No pneumothorax. Moderate cardiomegaly. Mediastinal and hilar contours are within normal limits. Bony thorax no acute abnormality. Spinal canal catheter noted. Impression: No acute cardiopulmonary abnormality. Reviewed, dictated and finalized at location P. CIPAL MECHANICAL ENGINEER Impression: No acute cardiopulmonary abnormality.
--- OUTSIDE RECORDS SUMMARY | 2025-08-05 13:39 | XMS_ITS | Clinical Summary ---
Author Organization [facility] Address [address] [place] [address] Care Team Providers Care Magnetic Resonance Technologist Name Role Phone Bravo Bowen MD Primary Care Provider [phone] Allergies Active Allergy Reactions Criticality Noted Date [...] mg total) by mouth daily 4 Active amLODIPine (NORVASC) 5 mg tablet 5 MG ORALLY DAILY 4 Active loteprednol etabonate 0.38 % drops,gel Administer 1 drop into the right eye daily 5 g 11 5 Active brimonidine-timol oL (COMBIGAN) 0.2-0.5 % ophthalmic solution ADMINISTER 1 DROP INTO THE RIGHT EYE 2 TIMES A DAY. 10 mL 3 5 Active Active Problems Problem Noted Date Diagnosed [...] me/ Assessment & Plan (11/02/2023 2:08 PM BAR BACK): 2d f/u C&S Bact: Strep disgalactiae (sensitive [...] resolution) Assessment & Plan (10/31/2023 9:37 AM BAR BACK): Resolved pain on Moxi q1 overnight (saw [...] - long Avoid prolenes from sutured lens Fellow and Andra Discussed risk of graft failure [...] eye. Assessment & Plan (11/01/2021 1:40 PM BAR BACK): VA OD 20/150 and OS 20/30 IOP [...] the presence of Dr. Escoto on 12/28/2018, Pat Marquez, OSC. 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 Benavidez Assessment & Plan (09/16/2021 5:10 PM BAR BACK): Today 09/16/21 VA OD 20/100 and OS [...] (HVF) OU status post (s/p) repeat diode HEARTH FEEDER right eye (right eye (OD)) 08/2020 Assessment:Pseudoexfoliation [...] of left eye 019 Assessment & Plan (03/03/2025 10:46 AM CDT): Nearing VS - wants to observe Assessment & Plan (01/16/2024 10:07 AM CDT): Monitor w/ Dr. Silverman Assessment & Plan (09/14/2023 1:07 PM BAR BACK): Meeting ADLs Monitor Assessment & Plan (06/23/2023 [...] 11/13/2018 Overview (04/08/2022): DSEK/TSSIOL OD 09/26/18 Diode HEARTH FEEDER right eye (OD) x 2 (04/2020 and 07/2020) HVF 03/2020: [place] OD, new vs 12/2018 S/p ahmed SPG OD 02/10/22 Left eye: possible inf arc vs rim defect on HVF since 04/07/20; OCT RNFL full 12/28/18 Assessment & Plan (03/03/2025 10:47 AM CDT): OHTN OD IOP at goal Doing well on current drops - combigan BID OD and lotemax Follow annually with testing Assessment & Plan (03/01/2024 12:29 PM CDT): [...] concerns Assessment & Plan (10/21/2022 2:49 PM BAR BACK): OHTN OD - s/p Ahmed Os - [...] to pseudoexfoliation and prior surgeries repeat diode HEARTH FEEDER right eye (right eye (OD)) 08/2020 IOP [...] 5 classes OS only and FML Qdaily. [facility] in 03/2020 vs 12/2018, but limited [...] FML Qdaily. Improved with addition of Rocklatan [facility] in 03/2020 vs 12/2018, but limited reliability Continue dorzolamide and brimonidine/timolol (Combigan) BID right eye (OD), latanoprost QHS right eye, Rocklatan qHS right eye Doing well Follow 4 weeks Assessment & Plan (10/22/2020 8:59 PM BAR BACK): IOP today 19/15 on 4 classes OS only and FML Qdaily. [facility] in 03/2020 vs 12/2018, but limited reliability HVF: [facility] OD, wnl OS Discussed r/b/a, including [...] PRN Assessment & Plan (09/02/2020 10:12 AM BAR BACK): 3 week follow-up repeat diode HEARTH FEEDER right eye (OD). No significant pain or [...] leave Assessment & Plan (08/12/2020 10:22 AM BAR BACK): 1 week follow-up repeat diode HEARTH FEEDER right eye (OD). No significant pain or [...] check Assessment & Plan (08/04/2020 3:33 PM BAR BACK): Patient here for diode cyclophotocoagulation of the right eye (OD). Denies significant changes to vision. IOP today 26 on max drops since adding dorzolamide and latanoprost back to eye, which is above our goal. Discussed risks, benefits, and alternatives to procedure and patient wishes to proceed (consent signed separately). Proceed with diode HEARTH FEEDER right eye (OD) today Tolerated procedure well Continue present management on all glaucoma drops Start Pred Forte QID and atropine TID PRN in procedure eye Plan for follow-up in 1 week for post-procedure check Assessment & Plan (07/16/2020 4:20 PM BAR BACK): 6 week follow-up. 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 Unfortunately first diode didn't control IOP long-term. Discussed options including repeat diode vs tube vs more intensive medication regimen vs oral DAVID. Patient wishes to try max drops and tentatively scheduling repeat diode HEARTH FEEDER Continue present management on: Brimonidine/timolol (Combigan) BID right eye (OD) FML Qdaily right eye (OD) (chronic) Add: Dorzolamide BID right eye (OD) Latanoprost QHS right eye (OD) Plan for follow-up on 08/04 at [facility] for IOP check. If IOP remains elevated, will do repeat diode HEARTH FEEDER right eye (OD) Assessment & Plan (06/04/2020 2:47 PM CDT): 4 weeks status post (s/p) diode HEARTH FEEDER right eye (OD). No pain or discomfort. [...] 8:49 AM CDT): 1 week follow-up diode HEARTH FEEDER right eye (OD). No pain or discomfort [...] proceed (consent signed separately). Proceed with diode HEARTH FEEDER right eye (OD) today Tolerated procedure well [...] surgical intervention Could also consider light diode HEARTH FEEDER Will discuss with Dr. Benavidez and cornea team. Will call this week to discuss options with patient For now, continue present management on brimonidine/timolol (Combigan), dorzolamide, and latanoprost right eye (OD) Assessment & Plan (03/20/2020 10:25 AM CDT): IOP 37 OD on 3 agents today Start dorzolamide BID OD Recommend evaluation w/ glaucoma within next few weeks Assessment & Plan (07/30/2019 9:39 AM BAR BACK): IOP OD 16 by applanation Today and [...] tomorrow. 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 - increased IOP Change PF to Vyzulta OD qhs - RTC ~2wks w/ maxwell OD Assessment & Plan (10/30/2018 3:47 PM BAR BACK): Postop mo 1 s/p DSEK/TSSIOL OD (09/26/18) for aphakia/bullous K after [facility] - doing well: DSEK graft attached - TSSIOL centered in place Plan: - cont Pred Forte 5 times a day x 1mo, then qid - continue Lotemax ointment OD q.h.s until out. 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 ([facility]) - doing well: DSEK graft attached [...] 08/16/2018 Assessment & Plan (08/16/2018 2:52 PM BAR BACK): Corneal edema right eye On pred once [...] on file Legal Sex Female 2:28 AM BAR BACK Gender Identity Not on file Sexual Orientation [...] Date Last Done Comments Depression Screening 1935 Osteoporosis Screening-Bone Density Scan 1936 DTaP/Tdap/Td Vaccine (1 - Tdap) 1947 Hepatitis B Screening 1954 Zoster Vaccine (1 of 2) 1986 Well Visit 65+ 2001 Pneumococcal vaccine 65+ (2 of 2 - PCV) 07/17/2015 07/17/2014 Fall Risk Assessment 02/10/2023 02/10/2022 Covid-19 Vaccine (4 - 2024-2 6 season) 2025 07/02/2021, 11/06/2020, 10/09/2020 Influenza Vaccine (#1) 2025 , 06/21/2022, 06/16/2021, Additional history exists Medical Devices Implanted Type Area Electric Cutter Operator Device Identifier Shelf Expiration Date Model / Serial / Lot [employer] Tutoplast Iopatch 1x.6cm Dehydrate Processed Allograft Graft Soft [id number] - [id number] - [id number] Implanted:Qty : 1 on 02/10/2022 by Deisi Silverman MD at [facility] Graft Right: Eye [employer] 08/10/2026 [id number] / [id number] / [id number] Daniel Surgical Cz70bd.240 Slant 7mm 12.5mm 1 Piece Uv Absorbent Eyelet Posterior Chamber 5 - [id number] - [id number] Implanted:Qty : 1 on 09/26/2018 by Aram Benavidez MD at [facility] Lens Right: Eye [employer] [id number] 02/08/2021 CZ70BD.2 40 / [id number] / 0 Cornea-Dsek Implanted:Qty : 1 on 09/26/2018 by Aram Benavidez MD at [facility] Other - see comments Right: Cornea [employer] 10/08/2018 / [id number] / [id number] Description:Cornea [employer] Ahmed Glaucoma Valve Flexible Plate .635mm .305mm 10x9.6mm 25mm 8 - [id number] - [id number] Implanted:Qty : 1 on 02/10/2022 by Deisi Silverman MD at [facility] Other - see comments Right: Eye [employer] [id number] 07/04/2023 [facility] / [id number] / [id number] Description:AHMED GLAUCOMA V ALVE Spinal Cord Stimulator Spinal Cord Stimulator Back Insurance [facility] MEDICARE ADVANTAGE [facility] Address: [facility] [address] [place] [address] MEDICARE [facility] MEDICARE ADVANTAGE [facility] Address: [address] [address] [place] [address] [facility] MEDICARE ADVANTAGE [facility] Address: [address] [address] [place] [address] Care Teams Magnetic Resonance Technologist Relationship Specialty Start Date End Date Bravo Bowen MD [facility] [place] [address] PCP - General Internal Medicine 01/21/21
--- OUTSIDE RECORDS SUMMARY | 2025-08-05 13:39 | XMS_ITS | Patient Health Record ---
Author Organization [facility] Address [address] [place], [place] [address] Care Team Providers Care Packer And Carry Out Name Role Phone MORELIA CONNOLLY Unavailable [phone] Kim Ramos Unavailable Unavailable Reason For Referral No Information Medications Medication SIG (Take, Route, Frequency, Duration) Notes Start Date End Date Status aspirin 81 MG Delayed Release Oral Tablet ORAL aspirin 81 MG Delayed Release Oral TabletOriginal Medicationaspirin 81 MG Delayed Release Oral Tablet *Reorder from Instinctiv for eRx and Interaction Alerts* 10/10/2016 Active Social History Social History Additional Details Category Social Info Options Details Migrated Social History Migrated Social History Alcohol intake : , History of tobacco use : , Smoking Status : Never smoked Plan Of Treatment No Information Insurance Providers Payer Name Payer Address Payer Phone Subscriber Number Group Number Insured Name Patient Relationship to Insured Coverage Start Date Coverage End Date Medicare Part B [place] [address] [place] [address] [id number] NANCY CARRERA MP Self - patient is the insured [facility] [address] [address] [place] [address] [id number] NANCY CARRERA MP Self - patient is the insured
--- OUTSIDE RECORDS SUMMARY | 2025-08-05 13:39 | XMS_ITS | Clinical Summary ---
Author Organization [facility] Address [facility] [place] [address] Care Team Providers Care Cutter Grinder Name Role Phone Unavailable Primary Care Provider [...] Comments Blood Pressure 130/80 10/13/2015 1:18 PM ARBORIST Pulse 92 10/13/2015 1:18 PM ARBORIST Temperature - - Respiratory Rate - - Oxygen Saturation - - Inhaled Oxygen Concentration - - Weight 70.3 kg (155 lb) 10/13/2015 1:18 PM ARBORIST Height 170.2 cm (5' 7) 10/13/2015 1:18 PM ARBORIST Body Mass Index 24.28 10/13/2015 1:18 PM ARBORIST Plan of Treatment Health Maintenance Due Date Last Done Comments DTaP, Tdap and Td Vaccines ( 1 - Tdap) 1955 Pneumococcal Vaccine: 50+ Ye ars (1 of 1 - PCV) 1986 Zoster Vaccines (1 of 2) 1986 RSV Immunization or 60+ Years (1 - 1-dose 75+ series) 2011 COVID-19 Vaccine ( - 2024-2 6 season) 2025 Influenza Adult (#1) 2025 07/12/2015 Hepatitis A Vaccines Aged Out No long er eligible based on patient's age to complete this topic Meningococcal B Vaccine Aged Out No l onger eligible based on patient's age to complete this topic Meningococcal Vaccine Aged Out No diana maria a eligible based on patient's age to complete this topic RSV Immunizations Under 20 Months Aged Out No longer eligible based on patient's age to complete this topic
== END 2025-08-05 12:01 | disposition home or self-care (01) ==
LOC: CHSIMG 12:03
PROVIDERS: PCP Internal Medicine; Visit Provider Internal Medicine
DX: J06.9 Acute upper respiratory infection, unspecified (principal)
CPT/HCPCS: 71046

== ENCOUNTER 2025-09-10 00:27 | Emergency (ER) | payer MEDICARE, SELFPAY ==
[2025-09-10] VITALS (12 sets, daily range): BP systolic 102–125; BP diastolic 67–93; PULSE 67–87; RESP 11–21; TEMP 36.3; O2SAT 88–95
--- NOTE | ~2025-09-10 | CT_ITS ---
EXAMINATION: CT brain wo con DATE: 09/10/2025 00:58 INDICATION: Dizziness and weakness TECHNIQUE: Computed tomography (CT) of the head was performed without intravenous contrast. The dose-length product was 605.33 mGy-cm. Automated exposure control and iterative reconstruction technique were employed. COMPARISON: None FINDINGS: Brain parenchymal volume is normal for age. There are scattered mild periventricular and subcortical white matter changes, most likely related to small vessel ischemic disease (microangiopathy). No ventriculomegaly or midline shift. Basilar cisterns are patent. There is intracranial atherosclerosis. There is complete opacification of the left maxillary sinus. Mastoids are pneumatized. No depressed skull fractures. There is intracranial atherosclerosis. Small extra-axial calcified mass near the right cerebellopontine angle, likely meningioma measuring 7 mm. No significant mass effect. IMPRESSION: 1. No acute intracranial abnormality. 2: Probable small 7 mm meningioma near the right cerebellopontine angle. No significant mass effect. Reviewed, dictated and finalized at location O. ER SHEET CLERK IMPRESSION: 1. No acute intracranial abnormality. 2: Probable small 7 mm meningioma near the right cerebellopontine angle. No sig nificant mass effect.
--- NOTE | ~2025-09-10 | XR_ITS ---
EXAMINATION: XR chest 1V portable 09/10/2025 00:46 INDICATION: Bradycardia PROCEDURE: AP portable chest COMPARISON: 08/05/2025 FINDINGS: The lungs are clear. The cardiomediastinal silhouette is enlarged. Spinal stimulator leads overlie the upper thoracic spine. There are no pleural effusions. There is no pneumothorax suspected. IMPRESSION: 1: NO ACUTE CARDIOPULMONARY DISEASE. Reviewed, dictated and finalized at location O. N ELECTRONIC TECHNICIAN
--- NOTE | 2025-09-10 00:38 | ECG_ITS ---
Test Date: 2025-09-10 02:13:03 Measurements Intervals [place] Rate: 79 P: 0 UT: 0 QRS: -11 QRSD: 70 T: 5 QT: 389 QTc: 448 Interpretive Statements ATRIAL FIBRILLATION ANTEROSEPTAL INFARCT, AGE INDETERMINATE CONSIDER INFERIOR INFARCT, AGE INDETERMINATE BASELINE ARTIFACT- I, II, III, AVR, AVL, AVF, V1-V2 ABNORMAL ECG No previous ECG available for comparison Electronically Signed On 09-10-2025 09:17:07 CONSUMER BANKER by Prem Garcia D.O.
--- NOTE | 2025-09-10 00:43 | ED_ITS ---
HPI - Dizziness General Chief Complaint: Dizziness Stated Complaint: DIZZY, HYPOTENSIVE, BRADYCARDIC Time Seen by Provider: 09/10/25 00:38 History of Present Illness HPI Narrative: 89-year-old female with a past medical history including atrial fibrillation on Xarelto, hypertension, diastolic heart failure. Patient presents to the emergency department today with an episode of lightheadedness and dizziness. Patient states she got up from the couch too fast and felt lightheaded and dizzy like she was about to pass out. She was able to sit herself down and pressed her Life Alert bracelet. Upon EMS arrival patient was hypotensive and bradycardic. States she has got symptoms like this before when she gets ill or sick and had COVID recently. EMS did administer atropine and a fluid bolus as well as Zofran. Vital signs of all normalized here and she has no symptoms. She denies any complaints at this time and would like to go home actually. She denies any chest pain, neck pain, nausea, vomiting, fever, chills, abdominal pain, back pain. She did not fall or injure herself but is on anticoagulants. No strength or sensory deficits or changes from her baseline health at this time. Related Data Home Medications ?Medication ?Instructions ?Recorded ?Confirmed ?Last Taken ?Type brimonidine 0.2 %-timolol 0.5 % 1 drp RIGHT EYE DAILY 11/18/20 03/17/25 Unknown History eye drops (Combigan) loteprednol etabonate 0.5 % eye 1 drp EACH EYE DAILY 0 09/26/22 03/17/25 Unknown History drops,suspension (Lotemax) ferrous sulfate 325 mg (65 mg 325 mg PO DAILY 09/19/24 03/17/25 Unknown History iron) tablet Allergies Allergy/AdvReac Type Severity Reaction Status Date / Time nickel Allergy Unknown Verified 09/19/24 14:06 tape Allergy Intermediate Unknown Uncoded 09/19/24 14:06 Review of Systems 2 Review of Systems: As reviewed above in HPI All systems reviewed & are unremarkable except as noted in HPI and below [facility] Past Medical History Medical History (Updated 09/10/25 @ 06:25 by Braxton Lopez MD) Atrial fibrillation Arthritis Surgical History Surgical History H/O: hysterectomy Transplanted cornea Social History Social History Smoking status: Never smoker Lack of Transportation: No Lack of Food: Never True Current Housing: I Have Housing Concerned About Future Housing: No Difficulty Paying Gas/Electric Bills: No Difficulty Paying for Meds: No Currently Unemployed: No Education: High School Diploma/GED Difficulty w/ Childcare or Family Care: No Exam 2 Narrative: GENERAL: [Well-appearing, well-nourished, and in no acute distress.] HEAD: [Normocephalic, atraumatic.] EYES: [PERRLA and EOMI.] ENT: Nares clear, no rhinorrhea or epistaxis. Mucous membranes moist. NECK: Supple. CHEST: [Clear to auscultation. No respiratory distress.] HEART: [Regular rate and rhythm]. No murmur heard. [Normal peripheral pulses.] ABDOMEN: [Soft, nondistended], [nontender], [No rigidity or guarding] EXTREMITIES: Normal range of motion. [No edema.] SKIN: Warm, dry, no rash. NEURO: [No focal deficits]. Alert and oriented [x3.] PSYCH: [Normal mood and affect.] Course Vital Signs Vital signs: Vital Signs Pulse Rate 87 09/10/25 00:29 Respiratory Rate 19 09/10/25 00:29 Blood Pressure 108/93 H 09/10/25 00:29 Temperature 36.3 C L 09/10/25 00:32 Pulse Rate 72 09/10/25 06:20 Respiratory Rate 15 09/10/25 06:20 Blood Pressure 102/68 09/10/25 06:20 Pulse Oximetry 92 09/10/25 06:20 Oxygen Delivery Room Air 09/10/25 00:32 [facility] MDM Narrative Medical decision making narrative: 89-year-old female with a past medical history including atrial fibrillation on Xarelto, hypertension, diastolic heart failure. Patient presents to the emergency department today with an episode of lightheadedness and dizziness. Patient states she got up from the couch too fast and felt lightheaded and dizzy like she was about to pass out. She was able to sit herself down and pressed her Life Alert bracelet. Upon EMS arrival patient was hypotensive and bradycardic. States she has got symptoms like this before when she gets ill or sick and had COVID recently. EMS did administer atropine and a fluid bolus as well as Zofran. Vital signs of all normalized here and she has no symptoms. She denies any complaints at this time and would like to go home actually. She denies any chest pain, neck pain, nausea, vomiting, fever, chills, abdominal pain, back pain. She did not fall or injure herself but is on anticoagulants. No strength or sensory deficits or changes from her baseline health at this time. patient has a benign physical examination with a normal set of vitals right now. No tachycardia, fever, hypoxemia or blood pressure concerns. Does not appear particularly dehydrated or dry. She has no neurological findings on examination. She is asymptomatic at this time. She does have cardiac risk factors as well as neurological risk factors with being on blood thinners. Broad workup was obtained given her hypotension and bradycardia that responded to treatments via EMS. Cardiac enzymes obtained, CT of the head chest x-ray EKG and labs were obtained. She was given a fluid bolus here and observed. Patient expressing desire to go home after workup rather than being admitted but I told her its a very low threshold for admission after my discussion with her. Patient observed here for numerous hours and had no further symptoms. Cardiac workup was unrevealing and unremarkable. Scans were reassuring. Patient felt comfortable going home at this time and family members comfortable driving home at this time. Safe for discharge. Differential Diagnosis Differential Diagnosis: Dehydration, vagal event, cardiac anomaly, electrolyte disturbances, dysrhythmia Lab Data MDM Lab Attestation statement: I personally reviewed the patient's lab results. 09/10/25 01:19 09/10/25 01:19 Labs: Lab Results 09/10/25 09/10/25 Range/Units 01:19 04:13 WBC 8.4 (4.5-10.0) K/mm3 RBC 4.59 (4.2-5.4) M/mm3 Hgb 14.2 (12.0-15.0) g/dL Hct 43.4 (37.0-47.0) % MCV 94.6 (80-100) fl MCH 30.9 (26-34) pg MCHC 32.7 (32-36) g/dl RDW 13.0 (11.5-14.5) % Plt Count 266 (150-375) k/mm3 MPV 8.4 (7.4-10.4) fl Immature Gran % (Auto) 0.4 (0-0.5) % Neut % (Auto) 67.1 (45.5-73.1) % Lymph % (Auto) 22.2 (18.3-44.2) % [place] % (Auto) 8.2 (2.6-8.5) % Eos % (Auto) 1.7 (0-4.4) % Baso % (Auto) 0.4 (0.2-1.2) % Lymph # (Auto) 1.87 (0.9-3.2) K/mm3 [place] # (Auto) 0.7 H (0.1-0.6) K/mm3 Eos # (Auto) 0.1 (0-0.3) K/mm3 Baso # (Auto) 0.0 (0.0-0.1) K/mm3 Abs Immat Gran (auto) 0.03 (0.00-0.031) K/mm3 Absolute Neuts (auto) 5.7 (1.3-6.7) K/mm3 Absolute Nucleated RBC 0.000 (0.0-0.012) K/mm3 Nucleated RBC % 0.0 (0.0-0.2) % PT 35.9 H (11.1-14.7) Seconds INR 3.7 APTT 39.4 H (22.3-36.8) Seconds Sodium 134 L (137-145) mmol/L Potassium 4.3 (3.4-5.0) mmol/L Chloride 102 (98-107) mmol/L Carbon Dioxide 28 (22-30) mmol/L Anion Gap 4 (4-12) mmol/L BUN 15 (7-17) mg/dL Creatinine 0.81 (0.7-1.0) mg/dL Estim Creat Clear Calc 38 ml/min Estimated GFR > 60 (59 - ) Glucose 103 (65-110) mg/dL Calcium 9.4 (8.4-10.2) mg/dL Magnesium 1.9 (1.6-2.3) mg/dL Total Bilirubin 0.5 (0.2-1.3) mg/dL AST 30 (14-36) U/L ALT 15 (6-35) U/L Alkaline Phosphatase 92 (38-126) U/L Troponin I < 0.012 < 0.012 (0.000-0.034) ng/mL Total Protein 7.8 (6.3-8.2) g/dL Albumin 4.1 (3.5-5.1) g/dL Lipase 100 (23-300) U/L Influenza A (RT-PCR) Negative (Negative) Influenza B (RT-PCR) Negative (Negative) RSV (RT-PCR) Negative (Negative) SARS-CoV-2 RNA (RT-PCR) Negative (Negative) Imaging Data Attestation: I personally reviewed and interpreted this imaging study as follows: My impression: Impressions Chest X-Ray 09/10/25 06:06 IMPRESSION: 1: NO ACUTE CARDIOPULMONARY DISEASE. Radiologist's impression: ITS Impressions Chest X-Ray 09/10/25 06:06 IMPRESSION: 1: NO ACUTE CARDIOPULMONARY DISEASE. Head CT 09/10/25 06:23 IMPRESSION: 1. No acute intracranial abnormality. 2: Probable small 7 mm meningioma near the right cerebellopontine angle. No significant mass effect. Discharge Plan Discharge Clinical Impression: Pre-syncope Patient Disposition: Home Condition: Stable Instructions: Antibiotic Form, Near Syncope (ED), Lightheadedness (ED) Additional Instructions: Follow-up with regular doctor and return with any emergent concerns at any time or any recurrent symptoms. Workup today was unrevealing and unremarkable with normal labs and imaging. Patient Language: Kiswahili Prescriptions: No Action brimonidine-timolol [Combigan] 0.2-0.5 % drops 1 drp RIGHT EYE DAILY loteprednol etabonate [Lotemax] 0.5 % drops,suspension 1 drp EACH EYE DAILY ferrous sulfate 325 mg (65 mg iron) tablet 325 mg PO DAILY amlodipine 5 mg tablet See Rx Instructions .ROUTE .COMPLEX Qty: 90 2RF Dose Instruction: 5 MG ORALLY DAILY Rx Instructions: 5 MG ORALLY DAILY Xarelto 20 mg tablet See Rx Instructions .ROUTE .COMPLEX Qty: 90 2RF Dose Instruction: TAKE 1 TABLET BY MOUTH IN THE EVENING - MUST TAKE WITH MEAL Rx Instructions: TAKE 1 TABLET BY MOUTH IN THE EVENING - MUST TAKE WITH MEAL Follow-up/Referrals: Bravo Bowen MD [Primary Care Provider, Internal Medicine] Time of Disposition: 06:25
--- OUTSIDE RECORDS SUMMARY | 2025-09-10 00:49 | XMS_ITS | Clinical Summary ---
Author Organization [facility] [address] [place] [address] Care Team Providers Care Drier Tender Name Role Phone Bravo Bowen MD Primary Care Provider [phone] Allergies Active Allergy Reactions Criticality Noted Date [...] me/ Assessment & Plan (11/02/2023 2:08 PM TRANSIT DRIVER): 2d f/u C&S Bact: Strep disgalactiae (sensitive [...] resolution) Assessment & Plan (10/31/2023 9:37 AM TRANSIT DRIVER): Resolved pain on Moxi q1 overnight (saw [...] eye. 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 Benavidez Assessment & Plan (09/16/2021 5:10 PM TRANSIT DRIVER): Today 09/16/21 VA OD 20/100 and OS [...] (HVF) OU status post (s/p) repeat diode JEWELRY DEPARTMENT SUPERVISOR right eye (right eye (OD)) 08/2020 [...] Silverman Assessment & Plan (09/14/2023 1:07 PM TRANSIT DRIVER): Meeting ADLs Monitor Assessment & Plan (06/23/2023 [...] 11/13/2018 Overview (04/08/2022): DSEK/TSSIOL OD 09/26/18 Diode JEWELRY DEPARTMENT SUPERVISOR right eye (OD) x 2 (04/2020 [...] concerns Assessment & Plan (10/21/2022 2:49 PM TRANSIT DRIVER): OHTN OD - s/p Ahmed Os - [...] to pseudoexfoliation and prior surgeries repeat diode JEWELRY DEPARTMENT SUPERVISOR right eye (right eye (OD)) 08/2020 [...] weeks Assessment & Plan (10/22/2020 8:59 PM TRANSIT DRIVER): IOP today 19/15 on 4 classes OS only and FML Qdaily. [facility] in 03/2020 vs 12/2018, but limited reliability [facility], wnl OS Discussed r/b/a, including [...] PRN Assessment & Plan (09/02/2020 10:12 AM TRANSIT DRIVER): 3 week follow-up repeat diode JEWELRY DEPARTMENT SUPERVISOR right eye (OD). No significant pain [...] in 6-8 weeks for IOP check in [facility] on a . This patient was originally allowed to the fellow's schedule as an urgent add-on from Dr. Benavidez. As I will be graduating in March, discussed transitioning her to long-term glaucoma care. Will have her come back in [facility] to meet Dr. Silverman who may be able to follow her after I leave Assessment & Plan (08/12/2020 10:22 AM TRANSIT DRIVER): 1 week follow-up repeat diode JEWELRY DEPARTMENT SUPERVISOR right eye (OD). No significant pain [...] check Assessment & Plan (08/04/2020 3:33 PM TRANSIT DRIVER): Patient here for diode cyclophotocoagulation of the right eye (OD). Denies significant changes to vision. IOP today 26 on max drops since adding dorzolamide and latanoprost back to eye, which is above our goal. Discussed risks, benefits, and alternatives to procedure and patient wishes to proceed (consent signed separately). Proceed with diode JEWELRY DEPARTMENT SUPERVISOR right eye (OD) today Tolerated procedure well Continue present management on all glaucoma drops Start Pred Forte QID and atropine TID PRN in procedure eye Plan for follow-up in 1 week for post-procedure check Assessment & Plan (07/16/2020 4:20 PM TRANSIT DRIVER): 6 week follow-up. 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 Unfortunately first diode didn't control IOP long-term. Discussed options including repeat diode vs tube vs more intensive medication regimen vs oral DAVID. Patient wishes to try max drops and tentatively scheduling repeat diode JEWELRY DEPARTMENT SUPERVISOR Continue present management on: Brimonidine/timolol (Combigan) BID right eye (OD) FML Qdaily right eye (OD) (chronic) Add: Dorzolamide BID right eye (OD) Latanoprost QHS right eye (OD) Plan for follow-up on 08/04 at [facility] for IOP check. If IOP remains elevated, will do repeat diode JEWELRY DEPARTMENT SUPERVISOR right eye (OD) Assessment & Plan (06/04/2020 2:47 PM CDT): 4 weeks status post (s/p) diode JEWELRY DEPARTMENT SUPERVISOR right eye (OD). No pain or [...] 8:49 AM CDT): 1 week follow-up diode JEWELRY DEPARTMENT SUPERVISOR right eye (OD). No pain or [...] proceed (consent signed separately). Proceed with diode JEWELRY DEPARTMENT SUPERVISOR right eye (OD) today Tolerated procedure [...] surgical intervention Could also consider light diode JEWELRY DEPARTMENT SUPERVISOR Will discuss with Dr. Benavidez and [...] weeks Assessment & Plan (07/30/2019 9:39 AM TRANSIT DRIVER): IOP OD 16 by applanation Today and [...] tomorrow. 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 - increased IOP Change PF to Vyzulta OD qhs - RTC ~2wks w/ maxwell OD Assessment & Plan (10/30/2018 3:47 PM TRANSIT DRIVER): Postop mo 1 s/p DSEK/TSSIOL OD (09/26/18) for aphakia/bullous K after [facility] - doing well: DSEK graft attached - TSSIOL centered in place Plan: - cont Pred Forte 5 times a day x 1mo, then qid - continue Lotemax ointment OD q.h.s until out. 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 ([facility]) - doing well: DSEK graft attached [...] 08/16/2018 Assessment & Plan (08/16/2018 2:52 PM TRANSIT DRIVER): Corneal edema right eye On pred once [...] on file Legal Sex Female 2:28 AM TRANSIT DRIVER Gender Identity Not on file Sexual Orientation [...] history exists Medical Devices Implanted Type Area Acct Exec Device Identifier Shelf Expiration Date Model / Serial / Lot [employer] Tutoplast Iopatch 1x.6cm Dehydrate Processed Allograft Graft Soft 08128 - [id number] - [id number] Implanted:Qty : 1 on 02/10/2022 by Deisi Silverman MD at [facility] Graft Right: Eye [employer] 08/10/2026 [id number] / [id number] / [id number] [employer] [id number].240 Slant 7mm 12.5mm 1 Piece Uv Absorbent Eyelet Posterior Chamber 5 - [id number] - [id number] Implanted:Qty : 1 on 09/26/2018 by Aram Benavidez MD at [facility] Lens Right: Eye [employer] [id number] 02/08/2021 CZ70BD.2 40 / [id number] / 0 Cornea-Dsek Implanted:Qty : 1 on 09/26/2018 by Aram Benavidez MD at [facility] Other - see comments Right: Cornea [employer] 10/08/2018 / [id number] / [id number] Description:Cornea [employer] Ahmed Glaucoma Valve Flexible Plate .635mm .305mm 10x9.6mm 25mm 8 - [id number] - [id number] Implanted:Qty : 1 on 02/10/2022 by Deisi Silverman MD at [facility] Other - see comments Right: Eye [employer] [id number] 07/04/2023 [facility] / [id number] / [id number] Description:AHMED GLAUCOMA V ALVE Spinal Cord Stimulator Spinal Cord Stimulator Back Insurance [facility] MEDICARE ADVANTAGE [facility] MEDICARE Address: [facility] [address] [place] [address] MEDICARE [facility] MEDICARE ADVANTAGE [facility] MEDIC[facility] Address: [address] [address] [place] [address] [facility] MEDICARE ADVANTAGE [facility] MEDIC[facility] Address: [address] [address] [place] [address] Care Teams Drier Tender Relationship Specialty Start Date End Date Bravo Bowen MD [facility] [place] [address] PCP - General Internal Medicine 01/21/21
--- OUTSIDE RECORDS SUMMARY | 2025-09-10 00:49 | XMS_ITS | Clinical Summary ---
Author Organization [facility] Address [facility] [place] [address] Care Team Providers Care Outside Sales Representative Name Role Phone Unavailable Primary Care Provider [...] Comments Blood Pressure 130/80 10/13/2015 1:18 PM BOTTLE LINE WORKER Pulse 92 10/13/2015 1:18 PM BOTTLE LINE WORKER Temperature - - Respiratory Rate - - Oxygen Saturation - - Inhaled Oxygen Concentration - - Weight 70.3 kg (155 lb) 10/13/2015 1:18 PM BOTTLE LINE WORKER Height 170.2 cm (5' 7) 10/13/2015 1:18 PM BOTTLE LINE WORKER Body Mass Index 24.28 10/13/2015 1:18 PM BOTTLE LINE WORKER Plan of Treatment Health Maintenance Due Date [...]
--- OUTSIDE RECORDS SUMMARY | 2025-09-10 00:49 | XMS_ITS | Patient Health Record ---
Author Organization [facility] Address [address] [place], [place] [id number] Care Team Providers Care High School Academic Coach Name Role Phone MORELIA CONNOLLY Unavailable [phone] Kim Ramos Unavailable Unavailable Reason For Referral No Information Medications Medication SIG (Take, Route, Frequency, Duration) Notes Start Date End Date Status aspirin 81 MG Delayed Release Oral Tablet ORAL aspirin 81 MG Delayed Release Oral TabletOriginal Medicationaspirin 81 MG Delayed Release Oral Tablet *Reorder from [facility] for eRx and Interaction Alerts* 10/10/2016 Active [...] Date Coverage End Date Medicare Part B [place] [address] [place] [address] [id number] NANCY CARRERA MP Self - patient is the insured [facility] [address] [address] [place] [address] [id number] NANCY CARRERA MP Self - patient is the insured
[2025-09-10 01:29] LABS: Hematocrit 43.4 % (37.0-47.0); Hemoglobin 14.2 g/dL (12.0-15.0); Immature Granulocyte Percent A 0.4 % (0-0.5); Lymphocytes Absolute Auto 1.87 K/mm3 (0.9-3.2); Mean Corpuscular HGB Conc 32.7 g/dl (32-36); Mean Corpuscular Hemoglobin 30.9 pg (26-34); Mean Corpuscular Volume 94.6 fl (80-100); Nucleated Red Blood Cells Absolute Auto 0.000 K/mm3 (0.0-0.012); Nucleated Red Blood Cells Perc 0.0 % (0.0-0.2); Platelet Count Result 266 k/mm3 (150-375); Red Blood Count 4.59 M/mm3 (4.2-5.4); White Blood Count 8.4 K/mm3 (4.5-10.0)
[2025-09-10 01:40] LABS: Alanine Aminotransferase 15 U/L (6-35); Albumin Level 4.1 g/dL (3.5-5.1); Alkaline Phosphatase 92 U/L (38-126); Anion Gap 4 mmol/L (4-12); Aspartate Amino Transferase 30 U/L (14-36); Bilirubin,Total 0.5 mg/dL (0.2-1.3); Blood Urea Nitrogen 15 mg/dL (7-17); Calcium 9.4 mg/dL (8.4-10.2); Carbon Dioxide 28 mmol/L (22-30); Chloride 102 mmol/L (98-107); Estimated CRCL calculation 38 ml/min; Estimated Glomerular Filt Rate > 60; Glucose 103 mg/dL (65-110); Lipase 100 U/L (23-300); Magnesium 1.9 mg/dL (1.6-2.3); Potassium 4.3 mmol/L (3.4-5.0); Sodium 134 mmol/L (137-145); Total Protein 7.8 g/dL (6.3-8.2)
[2025-09-10 01:43] LABS: INR 3.7; Prothrombin Time 35.9 Seconds (11.1-14.7)
[2025-09-10 01:44] LABS: Partial Thromboplastin Time 39.4 Seconds (22.3-36.8)
[2025-09-10 01:50] LABS: Troponin I < 0.012 ng/mL (0.000-0.034)
[2025-09-10 02:03] LABS: Influenza A QL RT-PCR Negative (Negative); Influenza B QL RT-PCR Negative (Negative); RSV RNA, RT-PCR Negative (Negative); SARS-CoV-2 RNA PCR Negative (Negative)
[2025-09-10] MEDS: LACTATED RINGERS 1,000 ML 999 ML IV CONT (02:14)
--- NOTE | 2025-09-10 04:06 | ECG_ITS ---
Test Date: 2025-09-10 04:16:35 Measurements Intervals [place] Rate: 73 P: 0 [place]: 0 QRS: -13 QRSD: 69 T: 6 QT: 404 QTc: 448 Interpretive Statements ATRIAL FIBRILLATION INFERIOR INFARCT, AGE INDETERMINATE ANTEROSEPTAL INFARCT, AGE INDETERMINATE BASELINE ARTIFACT- I, II, III, AVR, AVL, AVF, V1-V3 ABNORMAL ECG Compared to ECG 09/10/2025 02:13:03 No significant changes Electronically Signed On 09-10-2025 09:21:08 FINE ARTS INSTRUCTOR by Prem Garcia D.O.
[2025-09-10 04:44] LABS: Troponin I < 0.012 ng/mL (0.000-0.034)
== END 2025-09-10 06:42 | disposition home or self-care (01) ==
PROVIDERS: Emergency Provider Student in an Organized Health Care Education/Training Program; PCP Internal Medicine
DX: R55 Syncope and collapse (principal); I48.91 Unspecified atrial fibrillation; Z79.01 Long term (current) use of anticoagulants; I50.30 Unspecified diastolic (congestive) heart failure; I11.0 Hypertensive heart disease with heart failure; Z20.822 Contact with and (suspected) exposure to COVID-19
CPT/HCPCS: 36415; 70450; 71045; 80053; 83690; 83735; 84484; 85025; 85610; 85730; 87637; 93005; 96360; 99284; J7120